=== PATIENT | male | born 1960 | race Caucasian/White ===

== ENCOUNTER 2016-11-02 13:23 | Observation (INO) ==
[2016-11-02 14:12] LABS: Basophils # 0.1 K/mcL (0.0-0.2); Eosinophils # 0.3 K/mcL (0.0-0.6); Eosinophils % 3.3 %; Hematocrit 47.9 % (37.5-50.1); Hemoglobin 15.9 g/dL (12.9-16.9); Immature Granulocytes % 0.3 % (0-4); Lymphocytes # 2.9 K/mcL (0.6-4.6); Lymphocytes % 31.9 %; Mean Corpuscular HGB Conc 33.2 g/dL (31.6-35.5); Mean Corpuscular Hemoglobin 28.4 pg (28.0-33.3); Mean Corpuscular Volume 85.7 fL (83.0-100.0); Mean Platelet Volume 9.9 fL (9.4-12.4); Monocytes # 0.7 K/mcL (0.0-1.3); Monocytes % 7.3 %; Neutrophils # 5.1 K/mcL (1.6-8.9); Platelet Count 218 K/mcL (140-400); Red Blood Count 5.59 M/mcL (4.19-5.50); Red Cell Distribution Width 12.9 % (11.5-14.5); Segmented Neutrophils % 56.2 %
[2016-11-02 14:17] LABS: INR 1.1; Prothrombin Time 12.2 Seconds (9.4-12.1)
[2016-11-02 14:20] LABS: Activated Partial Thrombo Time 32.7 Seconds (26.0-36.0)
[2016-11-02 14:27] LABS: BUN/Creatinine Ratio 13 (6-26); Blood Urea Nitrogen 14 mg/dL (8-26); Calcium 9.4 mg/dL (8.6-10.8); Carbon Dioxide 27 mEq/L (19-29); Chloride 107 mEq/L (98-109); Glucose 101 mg/dL (70-99); Osmolality,Calculated 293 (280-300); Potassium 4.3 mEq/L (3.5-4.5); Sodium 141 mEq/L (136-145); eGFR For African Americans > 60 (> 60); eGFR For Non-African Americans > 60 (> 60)
--- NOTE | 2016-11-02 15:03 | Emergency Department Note ---
Disposition Clinical Impression: Lower gastrointestinal hemorrhage, New onset a-fib Hemorrhoids Qualifiers: Hemorrhoid type: unspecified Qualified Code(s): K64.9 - Unspecified hemorrhoids Disposition: Admitted As Inpatient Condition: Good Referrals: NO,PCP [Primary Care Provider] - Forms: ED Satisfaction Letter Time of Disposition: 17:04 General Adult HPI - General Chief complaint: ED GI Bleed Stated complaint: GI Bleed Time Seen by Provider: 11/02/16 15:00 Source: patient Limitations: no limitations Nursing Notes Reviewed: Yes Vital Signs Reviewed: Yes - History of Present Illness HPI Narrative: Male patient reporting bright red blood per rectum this morning. Denies any hard stools. States it happens when he is going to the bathroom when he is not. States he does have a history of hemorrhoids. There are no provoking or alleviating factors. There is no pain associated with this. Does have associated nausea. Pain Scale: 4 - Related Data Previous Rx's Medication Instructions Recorded Hydrocodone/Acetaminophen [Sleepy Eye 1 tab PO Q6H PRN #12 tab 05/26/15 5-325 Tablet] Amoxicillin 875 mg PO BID #20 tablet 11/02/15 GuaiFENesin ER [Mucinex] 1,200 mg PO BID #20 tbbp.12hr 11/02/15 Loratadine [Claritin] 10 mg PO DAILY #30 tablet 11/02/15 hydroCHLOROthiazide 25 mg PO DAILY #30 tablet 11/12/15 [Hydrochlorothiazide] Ibuprofen [Motrin] 600 mg PO Q8HR PRN #20 tab 05/29/16 Tramadol HCl [Ultram] 1 - 2 tab PO TID PRN #20 tab 05/29/16 Allergies Allergy/AdvReac Type Severity Reaction Status Date / Time No Known Allergies Allergy Verified 05/29/16 17:00 Review of Systems: Patient denies any fevers or chills. He denies any shortness of breath or chest pain. He denies any vomiting or abdominal pain. He does report some nausea. He also reports some bright red blood per rectum that began this morning around 5:30. He states that it is there while he is pooping and when he is not. He states this is happened one other time he was told he had internal hemorrhoids. He states that the bleeding this time is more significant than it was last time. He denies lightheadedness or syncope. He denies any swelling or edema to any of his extremities. He denies any rectal trauma or abdominal trauma. All systems ED: reviewed and negative except as stated. Past Medical History - Past Medical History Attestation: Yes The following information was validated with the patient. Medical history: Reports: no medical history, other Surgical history: Reports: other Psychiatric history: Reports: no psych history - Social History Smoking Status: Never smoker Smokeless Tobacco Status: No Alcohol use: Reports: none Drug use: Reports: none Physical Exam - General Limitations: no limitations General appearance: alert, in no apparent distress - Head Head exam: atraumatic, normocephalic, normal inspection - Eye Eye exam: Present: normal appearance, PERRL, EOMI. Absent: scleral icterus - ENT ENT exam: normal exam, normal oropharynx, mucous membranes moist - Neck Neck exam: Present: normal inspection, full ROM, trachea midline. Absent: tenderness, meningismus, lymphadenopathy - Chest Chest inspection: Present: normal inspection, symmetric chest wall rise. Absent : tenderness - Respiratory Respiratory exam: Present: normal lung sounds bilaterally. Absent: respiratory distress, wheezes - Cardiovascular Cardiovascular exam: Present: tachycardia, irregular rhythm, normal heart sounds - Abdominal Exam Abdominal exam: Present: soft, Non-Tender, normal bowel sounds. Absent: tenderness, distention, guarding, rebound, rigidity, organomegaly - Rectal Exam Chemical Operations Specialist present during exam: Yes Rectal exam: Present: normal rectal tone, heme (+) stool, hemorrhoids. Absent: tenderness - Extremities Exam Extremities exam: Present: normal inspection, full ROM, normal capillary refill. Absent: tenderness, pedal edema - Back Exam Back exam: Present: normal inspection, full ROM. Absent: tenderness, CVA tenderness (R), CVA tenderness (L) - Neurological Exam Neurological exam: Present: alert, oriented X3, normal gait. Absent: CN II-XII intact, motor sensory deficit - Psychiatric Psychiatric exam: Present: normal affect, normal mood - Skin Skin exam: Present: warm, dry, intact, normal color. Absent: rash, cyanosis, diaphoresis, erythema Course Course Narrative: Male patient presenting to the emergency department complaining of bright red rectal bleeding. He states this began this morning. He states that it is bleeding whether he has a bowel movement or not. States that he has not had any hard stools recently to cause any bleeding. He denies any fevers or chills. He does report some nausea. He denies any abdominal pain. He states that he has had bright red blood per rectum one other time that resolved. He was told he had hemorrhoids at that time. Patient states it started around 5: 30 AM this morning. Of note the patient is in A. fib with RVR at a rate of 110. He denies any history of A. fib or other cardiac problems. He is also hypertensive all he is here. He states he does not have a history of hypertension either. He is not having any chest pain or shortness of breath. He states he does not feels heart fluttering. We will give patient Zofran for his nausea started an IV and start the patient on Lopressor. I will contact our cardiology for an A. fib consult. On rectal exam patient has some minor bleeding per rectum. It was a pink color. Of note he did have internal hemorrhoids. We are waiting for the Hemoccults come back by lab. His hemoglobin is normal and lab workup is grossly normal. We will also order a TSH. - Reevaluation(s) Reevaluation #1: Since TSH is normal. He is rate controlled with 5 mg of Lopressor. We will admit to the hospital for new onset A. fib with RVR as well as GI bleeding. Time: 16:56 - Consultations Consultation #1: Spoke with Dr Tai. he agrees that the Pt needs admitted to the hospital for rate control and possible scope for the gi bleeding. Time: 16:52 Consultation #2: Dr Cedeno accepeted Pt in stable condition. Time: 16:56 Vital Signs Temperature 98.4 F 11/02/16 13:24 Pulse Rate 101 11/02/16 13:24 Respiratory Rate 18 11/02/16 13:24 Blood Pressure 175/119 11/02/16 13:24 O2 Sat by Pulse Oximetry 96 11/02/16 13:24 Temperature 98.4 F 11/02/16 13:24 Pulse Rate 77 11/02/16 15:40 Respiratory Rate 18 11/02/16 15:40 Blood Pressure 148/125 11/02/16 15:40 O2 Sat by Pulse Oximetry 94 11/02/16 15:40 Oxygen Delivery Oxygen Delivery Room Air Medical Decision Making - Medical Records Medical records reviewed: Yes I reviewed the patient's medical records. - Lab Data Lab results reviewed: Yes I reviewed the patient's lab results. Result diagrams: 11/02/16 14:01 11/02/16 14:01 Lab Results 11/02/16 11/02/16 11/02/16 Range/Units 14:01 14:01 14:01 WBC 9.0 (4.3-11.1) K/mcL RBC 5.59 H (4.19-5.50) M/mcL Hgb 15.9 (12.9-16.9) g/dL Hct 47.9 (37.5-50.1) % MCV 85.7 (83.0-100.0) fL MCH 28.4 (28.0-33.3) pg MCHC 33.2 (31.6-35.5) g/dL RDW 12.9 (11.5-14.5) % Plt Count 218 (140-400) K/mcL MPV 9.9 (9.4-12.4) fL Immature Gran % 0.3 (0-4) % Seg Neutrophils % 56.2 % Lymphocytes % 31.9 % Monocytes % 7.3 % Eosinophils % 3.3 % Basophils % 1.0 % Neutrophils # 5.1 (1.6-8.9) K/mcL Lymphocytes # 2.9 (0.6-4.6) K/mcL Monocytes # 0.7 (0.0-1.3) K/mcL Eosinophils # 0.3 (0.0-0.6) K/mcL Basophils # 0.1 (0.0-0.2) K/mcL PT 12.2 H (9.4-12.1) Seconds INR 1.1 APTT 32.7 (26.0-36.0) Seconds Sodium 141 (136-145) mEq/L Potassium 4.3 (3.5-4.5) mEq/L Chloride 107 (98-109) mEq/L Carbon Dioxide 27 (19-29) mEq/L BUN 14 (8-26) mg/dL Creatinine 1.08 (0.72-1.25) mg/dL Est GFR ( Amer) > 60 (> 60) Est GFR (Non-Af Amer) > 60 (> 60) BUN/Creatinine Ratio 13 (6-26) Glucose 101 H (70-99) mg/dL Calculated Osmolality 293 (280-300) Calcium 9.4 (8.6-10.8) mg/dL TSH 3.073 (0.350-4.840) mcIU/mL Stool Occult Blood (Negative) 11/02/16 Range/Units 15:15 WBC (4.3-11.1) K/mcL RBC (4.19-5.50) M/mcL Hgb (12.9-16.9) g/dL Hct (37.5-50.1) % MCV (83.0-100.0) fL MCH (28.0-33.3) pg MCHC (31.6-35.5) g/dL RDW (11.5-14.5) % Plt Count (140-400) K/mcL MPV (9.4-12.4) fL Immature Gran % (0-4) % Seg Neutrophils % % Lymphocytes % % Monocytes % % Eosinophils % % Basophils % % Neutrophils # (1.6-8.9) K/mcL Lymphocytes # (0.6-4.6) K/mcL Monocytes # (0.0-1.3) K/mcL Eosinophils # (0.0-0.6) K/mcL Basophils # (0.0-0.2) K/mcL PT (9.4-12.1) Seconds INR APTT (26.0-36.0) Seconds Sodium (136-145) mEq/L Potassium (3.5-4.5) mEq/L Chloride (98-109) mEq/L Carbon Dioxide (19-29) mEq/L BUN (8-26) mg/dL Creatinine (0.72-1.25) mg/dL Est GFR ( Amer) (> 60) Est GFR (Non-Af Amer) (> 60) BUN/Creatinine Ratio (6-26) Glucose (70-99) mg/dL Calculated Osmolality (280-300) Calcium (8.6-10.8) mg/dL TSH (0.350-4.840) mcIU/mL Stool Occult Blood Positive A (Negative) - Radiology Data Radiology results reviewed: Yes I reviewed the patient's radiology results. Chest X-Ray 11/02/16 15:21 IMPRESSION: No acute abnormality. Mild cardiomegaly. D/ / Romario Tatum MD / Romario Tatum MD Interpreting Provider: Romario Tatum MD - EKG Data EKG #1 EKG attestation: Yes I reviewed and interpreted this EKG. EKG results narrative: A. fib with RVR at a rate of 105. [place] interval is not read. QRS duration is 106. QT is 335. QTC is 396. No signs of acute ischemia. Patient was in a sinus rhythm at last EKG dated 09/11/2014. EKG #2 EKG attestation: Yes I reviewed and interpreted this EKG. EKG results narrative: Repeat EKG timed 1631. A. fib at a rate of 75. QRS duration is 114. QT is 372. QTC is 402.
[2016-11-02] MEDS ORDERED: *HR* Metoprolol 5 MG/5 ML VIAL IVP ONE (15:19)
--- NOTE | 2016-11-02 15:28 | Emergency Department Note ---
Disposition Clinical Impression: Lower gastrointestinal hemorrhage, New onset a-fib Hemorrhoids Qualifiers: Hemorrhoid type: unspecified Qualified Code(s): K64.9 - Unspecified hemorrhoids Disposition: Admitted As Inpatient Condition: Good General Adult HPI - General Chief complaint: ED GI Bleed Stated complaint: GI Bleed Time Seen by Provider: 11/02/16 15:00 Source: patient Limitations: no limitations Nursing Notes Reviewed: Yes Vital Signs Reviewed: Yes - History of Present Illness Pain Scale: 4 - Related Data Home Medications Medication Instructions Recorded Confirmed No Known Home Drugs 11/02/16 11/02/16 Allergies Allergy/AdvReac Type Severity Reaction Status Date / Time No Known Allergies Allergy Verified 05/29/16 17:00 Past Medical History - Past Medical History Medical history: Reports: no medical history, other Surgical history: Reports: other Psychiatric history: Reports: no psych history - Social History Smoking Status: Never smoker Smokeless Tobacco Status: No Alcohol use: Reports: none Drug use: Reports: none Physical Exam - General Limitations: no limitations General appearance: alert, in no apparent distress Course Vital Signs Temperature 98.4 F 11/02/16 13:24 Pulse Rate 101 11/02/16 13:24 Respiratory Rate 18 11/02/16 13:24 Blood Pressure 175/119 11/02/16 13:24 O2 Sat by Pulse Oximetry 96 11/02/16 13:24 Temperature 98.4 F 11/02/16 13:24 Pulse Rate 77 11/02/16 15:40 Respiratory Rate 18 11/02/16 17:05 Blood Pressure 154/110 11/02/16 17:05 O2 Sat by Pulse Oximetry 94 11/02/16 15:40 Oxygen Delivery Oxygen Delivery Room Air Medical Decision Making - MDM Narrative Medical decision making narrative: I examined this patient and my medical decision-making was reviewed with the TOP KNITTER/PA/Advanced Practice Nurse/Resident Physician. I agree with the documented findings, disposition and treatment plan as described except to the extent set forth below. Patient presents today through triage and was seen by Dr. Downing and myself, I agree with her evaluation and management plan, supervise care the patient's stay. Patient came in today because he had some blood per rectum. History of internal hemorrhoid. States this happened once before but then it resolved. He denies abdominal pain however when he is here he is tachycardic with a regular heart rate is noted to have A. fib on his EKG. No history of this in the past. He had blood work drawn at triage and it looks good with an abnormal TSH. His heart rate was in the 1 teens, so we will start him on a beta shila here and will review his lab work; discuss with cardiology and then disposition. He had slight pink on his guaiac exam; no gross bleeding; no signs of external hemorrhoids or fissures. Chest X-Ray 11/02/16 15:21 IMPRESSION: No acute abnormality. Mild cardiomegaly. D/ / Romario Tatum MD / Romario Tatum MD Interpreting Provider: Romario Tatum MD 1630 hrs.: Patient is rate controlled with his atrial fibrillation after getting beta blockers here. His pressures in the 140s. We will bring him into the hospital, we spoke with cardiology, he will be admitted to hospitalist with cardiology consulting. Impression is GI bleed suspect internal hemorrhoid. And then new onset atrial fib needing rate control. - Lab Data Result diagrams: 11/02/16 14:01 11/02/16 14:01 Lab Results 11/02/16 11/02/16 11/02/16 Range/Units 14:01 14:01 14:01 WBC 9.0 (4.3-11.1) K/mcL RBC 5.59 H (4.19-5.50) M/mcL Hgb 15.9 (12.9-16.9) g/dL Hct 47.9 (37.5-50.1) % MCV 85.7 (83.0-100.0) fL MCH 28.4 (28.0-33.3) pg MCHC 33.2 (31.6-35.5) g/dL RDW 12.9 (11.5-14.5) % Plt Count 218 (140-400) K/mcL MPV 9.9 (9.4-12.4) fL Immature Gran % 0.3 (0-4) % Seg Neutrophils % 56.2 % Lymphocytes % 31.9 % Monocytes % 7.3 % Eosinophils % 3.3 % Basophils % 1.0 % Neutrophils # 5.1 (1.6-8.9) K/mcL Lymphocytes # 2.9 (0.6-4.6) K/mcL Monocytes # 0.7 (0.0-1.3) K/mcL Eosinophils # 0.3 (0.0-0.6) K/mcL Basophils # 0.1 (0.0-0.2) K/mcL PT 12.2 H (9.4-12.1) Seconds INR 1.1 APTT 32.7 (26.0-36.0) Seconds Sodium 141 (136-145) mEq/L Potassium 4.3 (3.5-4.5) mEq/L Chloride 107 (98-109) mEq/L Carbon Dioxide 27 (19-29) mEq/L BUN 14 (8-26) mg/dL Creatinine 1.08 (0.72-1.25) mg/dL Est GFR ( Amer) > 60 (> 60) Est GFR (Non-Af Amer) > 60 (> 60) BUN/Creatinine Ratio 13 (6-26) Glucose 101 H (70-99) mg/dL Calculated Osmolality 293 (280-300) Calcium 9.4 (8.6-10.8) mg/dL TSH 3.073 (0.350-4.840) mcIU/mL Stool Occult Blood (Negative) 11/02/16 Range/Units 15:15 WBC (4.3-11.1) K/mcL RBC (4.19-5.50) M/mcL Hgb (12.9-16.9) g/dL Hct (37.5-50.1) % MCV (83.0-100.0) fL MCH (28.0-33.3) pg MCHC (31.6-35.5) g/dL RDW (11.5-14.5) % Plt Count (140-400) K/mcL MPV (9.4-12.4) fL Immature Gran % (0-4) % Seg Neutrophils % % Lymphocytes % % Monocytes % % Eosinophils % % Basophils % % Neutrophils # (1.6-8.9) K/mcL Lymphocytes # (0.6-4.6) K/mcL Monocytes # (0.0-1.3) K/mcL Eosinophils # (0.0-0.6) K/mcL Basophils # (0.0-0.2) K/mcL PT (9.4-12.1) Seconds INR APTT (26.0-36.0) Seconds Sodium (136-145) mEq/L Potassium (3.5-4.5) mEq/L Chloride (98-109) mEq/L Carbon Dioxide (19-29) mEq/L BUN (8-26) mg/dL Creatinine (0.72-1.25) mg/dL Est GFR ( Amer) (> 60) Est GFR (Non-Af Amer) (> 60) BUN/Creatinine Ratio (6-26) Glucose (70-99) mg/dL Calculated Osmolality (280-300) Calcium (8.6-10.8) mg/dL TSH (0.350-4.840) mcIU/mL Stool Occult Blood Positive A (Negative)
[2016-11-02 16:02] LABS: Thyroid Stimulating Hormone 3.073 mcIU/mL (0.350-4.840)
[2016-11-02] MEDS ORDERED: Ondansetron ODT 4 MG TAB.RAPDIS SL ONE (16:57)
[2016-11-02] MEDS ORDERED: Acetaminophen 325 MG TABLET PO PRN (17:43)
[2016-11-02] MEDS ORDERED: Naloxone 0.4 MG/ML INJ IVP PRN (17:43)
[2016-11-02] MEDS ORDERED: Ondansetron 4 MG/2 ML VIAL IVP PRN (17:43)
--- NOTE | 2016-11-02 17:48 | Internal Med History&Physical ---
Date of Encounter: 11/02/16 Time of Encounter: 17:48 Assessment and Plan (1) New onset a-fib Current visit: Yes Status: Acute Incidental finding of A.fib on routine EKG and Telemetry monitoring. HR was slightly higher than 110 initially, which responded well to 5mg IV Metoprolol in the ER; continue Telemetry monitoring and cycle Troponins; start oral beta shila and monitor BP and HR closely. Check Echocardiogram for EF. Check TSH; Cardiology consult, low risk on CHADS-VASC score; anticoagulation deferred due to lower GI bleed at this time. decision regarding DCCV -will defer to Cardiology; (2) Lower gastrointestinal hemorrhage Current visit: Yes Status: Acute One episode of bright red bleeding per rectum, likely hemorrhoidal; continue to monitor Hb and for further bleeding episodes; had one other episode of bleeding in the pats, no prior colonoscopy; outpatient workup if Hb remains stable and no further bleeding episodes; (3) Essential hypertension Current visit: Yes Status: Chronic Likely undiagnosed HTN; start Metoprolol and monitor BP closely; low Na diet; Internal Medicine - H&P: HPI Chief complaint: Rectal bleeding Admitted From: Emergency Dept Plans for Post Hospital Care: Home History of present illness: Mr. Bowden is a 56 year old male with no significant past medical history presents with c/o- bright red rectal bleeding. His symptoms started about 6.30 am this morning and continued for a few hours, with intermittent painless bright red bleeding mixed with stool, and trickling down by itself, no clots. No melena, nausea, vomiting, and reports mild lower abdominal cramps/ discomfort. Had prior h/o- bleeding once in the past, which was self-limited and never had EGD/Colonoscopy in the past. Reports no chest pain, dyspnea, palpitations, dizziness or syncope today. Past Med Surg Social Fam HX - Past Medical History Medical history: no medical history, other Psychiatric history: no psych history - Past Surgical History Surgical History: orthopedic, other (right femur ORIF), other - Social History Smoking Status: Former smoker Smokeless Tobacco Status: No Alcohol use: none Drug use: none Occupational status: employed Current living situation: Home, With Family Activity Level: Independent ambulation Recent Out of Country Travel Within the Last 8 Weeks: No - Family History Brother Living Status: Still Living Hx Family Cardiac Disorders: Yes Hx Family Cancer: Yes Father Hx Family Cancer: Yes Internal Medicine - H&P: Meds No Known Home Drugs 11/02/16 [History] Allergies No Known Allergies Allergy (Verified 05/29/16 17:00) All Systems PM: A 10-system review of systems was performed and is negative for pertinent findings except as documented above in the HPI. - Constitutional Constitutional: no chills, no fever(s), no night sweats - EENT Eyes: no change in vision, no discharge, no pain, no photophobia Ears: no ear discharge, no ear pain, no tinnitus Nose, mouth and throat: no dysphagia, no nasal discharge, no neck pain, no sore throat - Cardiovascular Cardiovascular ROS IM: no chest pain, no diaphoresis, no dyspnea, no lightheadedness, no palpitations, no syncope - Respiratory Respiratory: no cough, no dyspnea, no wheezing, no excessive phlegm production - Gastrointestinal Gastrointestinal: abdominal pain, hematochezia - Musculoskeletal Musculoskeletal ROS IM: no numbness, no tingling - Integumentary Integumentary IM: no rash, no unusual bruising - Neurological Neurological ROS: no confusion, no convulsions, no focal weakness, no numbness, no tingling, no tremor(s) - Hematologic/Lymphatic Hematologic/Lymphatic: no easy bruising - Constitutional Vitals: Temp Pulse Resp BP Pulse Ox 98.4 F 77 18 154/110 94 11/02/16 13:24 11/02/16 15:40 11/02/16 17:05 11/02/16 17:05 11/02/16 15:40 General appearance: Present: A&O X 3, answers questions appropriately - Respiratory Respiratory exam: Present: CTAB. Absent: accessory muscle use, rales, rhonchi, wheezes - Cardiovascular Cardiovascular exam: Present: irregular rhythm, +S1, +S2. Absent: diastolic murmur, gallop, rubs, systolic murmur - GI/Abdominal GI/Abdominal exam: Present: normal bowel sounds, soft, no peritoneal signs. Absent: distended, tenderness - Extremities Exam Extremities exam: Present: full ROM, warm, radial pulses palpable and symetrical. Absent: calf tenderness, cyanotic, pedal edema - Neurological Exam Neurological exam: Present: CN II-XII intact, oriented X3. Absent: pronater drift, facial droop, speech deficit - Skin Skin exam: Present: dry, intact Internal Med - H&P Results - Labs CBC & Chem 7: 11/02/16 14:01 11/02/16 14:01 - EKG Data -: EKG Interpreted by Myself (irregular narrow complex tachycardia- atrila fibrillation)
[2016-11-03 07:00] LABS: Basophils # 0.1 K/mcL (0.0-0.2); Basophils % 1.1 %; Eosinophils # 0.4 K/mcL (0.0-0.6); Eosinophils % 4.7 %; Hematocrit 47.6 % (37.5-50.1); Hemoglobin 15.7 g/dL (12.9-16.9); Immature Granulocytes % 0.5 % (0-4); Lymphocytes # 2.8 K/mcL (0.6-4.6); Lymphocytes % 35.7 %; Mean Corpuscular Hemoglobin 28.6 pg (28.0-33.3); Mean Corpuscular Volume 86.7 fL (83.0-100.0); Mean Platelet Volume 9.8 fL (9.4-12.4); Monocytes # 0.6 K/mcL (0.0-1.3); Monocytes % 7.4 %; Platelet Count 208 K/mcL (140-400); Red Blood Count 5.49 M/mcL (4.19-5.50); Red Cell Distribution Width 13.2 % (11.5-14.5); Segmented Neutrophils % 50.6 %
[2016-11-03 07:30] LABS: BUN/Creatinine Ratio 14 (6-26); Blood Urea Nitrogen 14 mg/dL (8-26); Calcium 8.6 mg/dL (8.6-10.8); Carbon Dioxide 25 mEq/L (19-29); Chloride 107 mEq/L (98-109); Chol/HDL Ratio 6.7 (0-4.9); Cholesterol 188 mg/dL (< 200); Glucose 92 mg/dL (70-99); HDL Cholesterol 28 mg/dL (40-59); LDL Cholesterol,Calculated 113 mg/dL (0-99); Magnesium 2.2 mg/dL (1.6-2.6); Osmolality,Calculated 290 (280-300); Potassium 3.8 mEq/L (3.5-4.5); Sodium 140 mEq/L (136-145); Triglycerides 237 mg/dL (< 150); eGFR For African Americans > 60 (> 60); eGFR For Non-African Americans > 60 (> 60)
[2016-11-03 08:01] LABS: Hemoglobin A1C 5.4 %
--- NOTE | 2016-11-03 08:59 | Cardiology Consult Note ---
Date of Encounter: 11/03/16 Time of Encounter: 08:54 Assessment and Plan (1) New onset a-fib Current Visit: Yes Status: Acute New onset A. fib found incidentally Patient is asymptomatic Rate currently controlled on PO metoprolol 25 mg BID No acute abnormalities on echo Potassium and magnesium WNL Continue metoprolol and follow up with cardiology as outpatient (2) Essential hypertension Current Visit: Yes Status: Chronic Echocardiogram with left ventricular hypertrophy, patient likely has chronic hypertension Start lisinopril 10 mg daily and titrate as outpatient DASH diet Discussion w patient/family: The assessment and plan as outlined above was discussed with the patient and/or family members who expressed understanding and agreement. All questions were answered. Thank you for involving us in the care of your patient. Please call with any questions. History of Present Illness Consult date: 11/03/16 Consult reason: New onset A. fib Chief complaint: New onset A. fib History of present illness: Mr. Bowden is a 56 year old male who presented to the ER yesterday (see 11/02/16) C4 bright red blood per rectum that had started early that morning. He does have a history of internal hemorrhoids with rectal bleeding however his bleeding was more significant this time. He did have internal hemorrhoids on exam according to ER documentation as well as a positive stool Hemoccult. H&H = 15.9/47.9. Blood pressure in ER was 175/119. On interview patient states he was diagnosed with hypertension 5-6 years ago and was started on antihypertensive medication, unsure of name, but states he was taken off this a few months later because his blood pressure was too low. He has not been on blood pressure medication for about the past 5 years and checks his blood pressure periodically at the drugstore stating it is usually in the 120s-130s systolic. In the ED he was incidentally found to have A. fib with RVR, pulse rate up to 110. He did not have any chest pain, shortness of breath, palpitations and was started on rate control with IV Lopressor 5 mg and subsequently switched to metoprolol 25 mg by mouth twice a day without recurrence of A. fib. CHADSVASC = 0 (see possibly 1 with remote history of hypertension). Echo pending. Potassium, magnesium both WNL. Past Med Surg Social Fam HX - Past Medical History Medical history: no medical history, other Psychiatric history: no psych history - Past Surgical History Surgical History: orthopedic, other (right femur ORIF), other - Social History Smoking Status: Former smoker Smokeless Tobacco Status: No Alcohol use: none Drug use: none - Family History Brother Living Status: Still Living Hx Family Cardiac Disorders: Yes Hx Family Cancer: Yes Father Hx Family Cancer: Yes Medications and Allergies No Known Home Drugs 11/02/16 [History] Allergies No Known Allergies Allergy (Verified 05/29/16 17:00) All Systems Review: A 10-system review of systems was performed and is negative for pertinent findings except as documented above in the HPI. - Constitutional Constitutional: no fever(s), no weight loss - Cardiovascular Cardiovascular: as per HPI, no chest pain at rest, no chest pain with exertion, no claudication, no diaphoresis, no dyspnea on exertion, no lightheadedness, no palpitations, no syncope - Respiratory Respiratory: no cough, no dyspnea, no wheezing - Gastrointestinal Gastrointestinal: no abdominal pain Physical Examination Vital Signs, Last 4 Hours Temp Pulse Resp BP Pulse Ox 11/03/16 07:52 97.8 F 67 16 130/88 91 General: Conversant, No Apparent Distress HEENT: Atraumatic, Normocephaly Cardiac: Reg Rate and Rhythm, Normal S1 and S2, No Murmur Lungs: Normal Breath Sounds, No Wheeze, Rales, Rhonchi Neuro: Alert and responsive, No focal deficits noted Extremities: No Clubbing, No Cyanosis, No Edema, Normal Pulses Results 11/03/16 06:28 11/03/16 06:28 Lab Results 11/02/16 11/02/16 11/03/16 18:27 23:49 06:28 WBC 7.9 Hgb 15.7 Hct 47.6 Plt Count 208 Sodium Potassium Chloride Carbon Dioxide BUN Creatinine Glucose Calcium Magnesium Troponin I 0.00 0.00 11/03/16 11/03/16 06:28 06:28 WBC Hgb Hct Plt Count Sodium 140 Potassium 3.8 Chloride 107 Carbon Dioxide 25 BUN 14 Creatinine 0.99 Glucose 92 Calcium 8.6 Magnesium 2.2 Troponin I 0.00 - Imaging and Cardiology Chest Xray: report reviewed, image reviewed Echo: report reviewed Consult Discharge Plan - Plan Referrals: NO,PCP [Primary Care Provider] -
[2016-11-03 11:02] VITALS: BP 128/83
--- NOTE | 2016-11-03 13:46 | Discharge Summary ---
Date of Encounter: 11/03/16 Time of Encounter: 10:10 - Discharge Diagnosis (1) New onset a-fib Priority: Primary Status: Acute Comments: Patient had an incidental finding of A. fib on EKG and on telemetry while on the unit. Heart rate was slightly higher than 110 initially, responded well to 5 mg of IV metoprolol in the emergency department. Patient will be sent home with 25 milligrams of metoprolol by mouth twice a day during assessment today I feel like he was in and out of A. fib. Initially when I auscultated his apical pulse he was normal sinus rhythm with a rate in the 60s, however when I listened a second time, the rhythm appeared to be irregular, however, still rate controlled. Patient denies any chest pain or any symptoms whatsoever since the onset of all of this. Echocardiogram was done last night. Showed LVEF of 50-55%, indeterminate diastolic function, mild concentric left ventricular hypertrophy, normal LV chamber size and low normal function, mildly dilated left atrium, normal RV structure and function, and no evidenc of pulmonary hypertension. Patient denies chest pain or any other complaints. No shortness of breath, no palpitations no dizziness, no nausea or vomiting, no syncope. Patient was seen by cardiology this morning. He does not require anticoagulation at this time, especially given history of GI bleeding. He will follow-up with cardiology clinic in 2-3 weeks. He will be sent home with metoprolol as mentioned above as well as lisinopril 5 mg by mouth daily for enhanced blood pressure control. (2) Lower gastrointestinal hemorrhage Priority: Secondary Status: Acute Comments: Patient reports bright red bleeding per rectum after bowel movement at 7 AM yesterday. He said it was still bleeding when he went to lunch at about noon. He said he has had none since then. He denies any abdominal pain or cramping. No diarrhea. Pt will follow up with GI outpatient. Hgb is steady and has not changed since admission. Pt denies bleeding after bowel movement today. (3) Hemorrhoids Priority: Secondary Status: Acute Comments: Bright red bleeding per rectum yesterday 1 episode after bowel movement. Most likely from hemorrhoids. Patient denies pain, abdominal pain, cramping. Patient will follow up outpatient with GI for colonoscopy. He has not had a colonoscopy in the past. Abdomen is soft and nontender with bowel sounds present. He is eating without difficulty. No nausea or vomiting or hematochezia. Qualifiers: Hemorrhoid type: unspecified Qualified Code(s): K64.9 - Unspecified hemorrhoids (4) Essential hypertension Priority: Secondary Status: Chronic Comments: Chronic. Patient will be sent home with metoprolol 25 mg by mouth twice a day, as well as lisinopril 5 mg by mouth daily for better control of hypertension. - Discharge Medications Prescriptions: Lisinopril [Zestril] 5 mg PO DAILY #30 tablet Metoprolol [Lopressor] 25 mg PO BID #60 tablet Home Medications: Lisinopril [Zestril] 5 mg PO DAILY #30 tablet 11/03/16 [Rx] Metoprolol [Lopressor] 25 mg PO BID #60 tablet 11/03/16 [Rx] Allergies/Adverse Reactions: Allergies No Known Allergies Allergy (Verified 05/29/16 17:00) Procedures/tests Complete & Pending: Procedures Performed prior 72 hours Category Date Time Status EV echocardiogram Routine Y 11/02/16 17:45 Completed Date of admission: 11/02/16 17:03 Primary care physician: PEÑA PRATHER Consults: [place] Discharging clinician: Mila Castellon Anticipated date of discharge: 11/03/16 - Patient Status Disposition: Home, Self-Care Functional capacity at discharge: independent ambulation Overall status at discharge: patient is back to baseline - Discharge Instructions Follow Up With: YAMILKA,PCP [Primary Care Provider] - Additional Instructions: Please follow up with your primary care physician in the next week to 10 days for a follow up. Please start your medications tomorrow. You will need to take a Metoprolol tonight before bed. Follow up with cardiology in the office in 2-3 weeks. REturn to the ER as needed for any new problems or if you begin having chest pain or more bleeding. You will need to follow up with GI for a colonoscopy. - Diet and Activity Activity: increase activity as tolerated Diet: advance to your usual diet Interval History: Mr. Maynard is a 56-year-old male with no significant past medical history, other than possibly hypertension, who presented to the emergency room yesterday with a five-hour history of bright red bleeding per rectum. He says that he had a bowel movement at 7 AM and he continued until lunchtime. He presented to the emergency department has had no bleeding since that time. His stool occult was positive for blood. He denies any cramping, diarrhea, hematochezia, abdominal pain, bloating or distention. His abdomen is soft and nontender to palpation with bowel sounds present. He denies history of this in the past. He has not had any chronic colonoscopy or any GI workup. He will be sent for colonoscopy outpatient. This is most likely due to internal hemorrhoids. Patient was found to be in A. fib incidentally in the emergency department. He denies any palpitations, chest pain, shortness of breath, dizziness, nausea, vomiting, diaphoresis. He says he was unaware of any cardiac problems. He will be sent home on metoprolol 25 mg by mouth twice daily, as well as lisinopril 5 mg by mouth daily. Patient had echocardiogram with LVEF 50-55%, normal LV chamber size and low normal function, mild concentric LV hypertrophy, most likely due to chronic hypertension. There is indeterminate diastolic function, normal RV structure and function, moderately dilated left atrium. And no evidence of pulmonary hypertension. He denies any chest pain, shortness of breath, diaphoresis, nausea, vomiting, lightheadedness, dizziness, palpitations. Hypertension has been well controlled in the setting. His hemoglobin has remained stable and unchanged since admission, as stated above, stool occult was positive for blood. TSH is within normal limits. All other labs are within normal limits vital signs are stable patient will be sent home with his medications and suggesting a low sodium diet as well as follow-up for colonoscopy. Patient is stable and appropriate for discharge. Hospital course: Mr. Bowden is a 56 year old male - Time Spent with Patient Total time spent providing and/or coordinating discharge services: Less than 30 minutes - Constitutional Vitals: Temp Pulse Resp BP Pulse Ox 98.0 F 66 16 128/83 94 11/03/16 11:00 11/03/16 11:00 11/03/16 11:00 11/03/16 11:11/03/16 11:00 General appearance: Present: cooperative, A&O X 3, pleasant, no acute distress, answers questions appropriately - Head Head exam: Present: normal inspection - Eye Eye exam: Present: normal appearance, nystagmus, conjuntiva pink - ENT ENT exam: Present: mucous membranes moist, normal exam - Neck Neck exam general surgery: Present: normal inspection. Absent: lymphadenopathy , tenderness - Respiratory Respiratory exam: Present: CTAB. Absent: chest wall tenderness, rales, rhonchi , stridor, wheezes - Cardiovascular Cardiovascular exam: Present: irregular rhythm, RRR, +S1, +S2. Absent: bradycardia, clicks, diastolic murmur, gallop, systolic murmur, tachycardia - GI/Abdominal GI/Abdominal exam: Present: normal bowel sounds, soft. Absent: distended, firm , hepatomegaly, tenderness - Extremities Exam Extremities exam: Present: normal inspection, warm. Absent: pedal edema, tenderness - Neurological Exam Neurological exam: Present: alert, oriented X3, no focal deficits, strengths equal and symetr throughout. Absent: facial droop, speech deficit
--- NOTE | 2016-11-03 23:45 | Electrocardiograph Report ---
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
--- NOTE | 2016-11-03 23:50 | Electrocardiograph Report ---
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
== END 2016-11-03 14:33 | disposition home or self-care (01) ==
LOC: 3BNU 13:23 → EMEROO 13:23 → 3BNU 17:34
PROVIDERS: ADMIT Hospitalist; ATTEND Nurse Practitioner Family

== ENCOUNTER 2016-12-17 11:12 | Observation (INO) ==
[2016-12-17] MEDS ORDERED: 0.9 % Sodium Chloride 1,000 ML IVC ONE (11:32)
--- NOTE | 2016-12-17 11:32 | Emergency Department Note ---
Disposition Clinical Impression: Unstable angina pectoris Chest pain Qualifiers: Chest pain type: unspecified Qualified Code(s): R07.9 - Chest pain, unspecified Disposition: Admitted As Inpatient Condition: Undetermined Time of Disposition: 14:04 Chest Pain HPI - General Chief Complaint: ED Chest Pain Stated Complaint: Chest Pain Time Seen by Provider: 12/17/16 11:16 Source: patient Mode of arrival: ambulatory Limitations: no limitations Vital Signs Reviewed: Yes Nursing Notes Reviewed: Yes - History of Present Illness HPI Narrative: 56-year-old male with history of recent diagnosis of atrial fibrillation, hyperlipidemia, hypertension arrives to [facility] emergency department complaining of left-sided chest pain that started just prior to arrival by roughly 30 minutes. The patient denies any previous NH and states that his last stress test as "been a while". The patient states that the pain radiates a little into his left shoulder. He does have associated dyspnea. Patient denies any other complaints at this time. He does appear slightly distressed due to the amount of pain. The patient was recently admitted to the hospital at the beginning of October of this year with complaint of GI bleed. The patient's last hemoglobin was 7.9 prior to discharge. No other complaints at that time. Patient had the incidental finding of atrial fibrillation and was followed up with in the cardiology clinic outpatient. No current complaint of GI bleeding, no melena, no hematochezia at this time. Pt complaint: chest pain Onset (ago): Just CARE DIRECTOR Duration: constant Onset: during exertion Pain Location: left chest Severity: moderate, severe Severity scale (1-10): 7 Quality: tightness, heaviness Pain Radiation: LUE Improves with: nothing Worsens with: nothing Associated symptoms: Reports: dyspnea Treatments prior to arrival chest pain: none - Related Data On Oral Contraceptives: No Home Medications Medication Instructions Recorded Confirmed Atorvastatin [Lipitor] 40 mg PO HS 12/17/16 12/17/16 Previous Rx's Medication Instructions Recorded Lisinopril [Zestril] 5 mg PO DAILY #30 tablet 11/03/16 Metoprolol [Lopressor] 25 mg PO BID #60 tablet 11/03/16 Allergies Allergy/AdvReac Type Severity Reaction Status Date / Time No Known Allergies Allergy Verified 05/29/16 17:00 All systems ED: reviewed and negative except as stated. Constitutional: Denies: fever, chills, weakness, weight change Cardiovascular: Reports: chest pain. Denies: palpitations, dyspnea on exertion , edema Respiratory: Reports: dyspnea. Denies: cough, wheezes, hemoptysis, stridor Gastrointestinal: Denies: abdominal pain, nausea, vomiting, diarrhea, constipation, hematemesis, melena, hematochezia Genitourinary: Denies: urgency, dysuria, frequency, hematuria Musculoskeletal: Denies: back pain, neck pain, arthralgia, myalgia Integumentary: Denies: rash, abrasion, lesions Neurological: Denies: headache, weakness, numbness, paresthesias, confusion, abnormal gait, vertigo Chest Pain PMH - Past Medical History Medical history: Reports: no medical history, atrial fibrillation, other Surgical history: Reports: orthopedic, other (right femur ORIF), other Psychiatric history: Reports: no psych history - Social History Smoking Status: Former smoker Alcohol use: Reports: none Drug use: Reports: none Physical Exam - General Limitations: no limitations General appearance: alert, in distress - Head Head exam: atraumatic, normocephalic, normal inspection - Neck Neck exam: Present: normal inspection, full ROM, trachea midline - Chest Chest inspection: Present: normal inspection, symmetric chest wall rise - Respiratory Respiratory exam: Present: normal lung sounds bilaterally - Cardiovascular Cardiovascular exam: Present: regular rate, normal rhythm, normal heart sounds - Abdominal Exam Abdominal exam: Present: soft, Non-Tender. Absent: tenderness, distention, guarding, rebound, rigidity - Extremities Exam Extremities exam: Present: normal inspection, full ROM. Absent: tenderness, pedal edema - Back Exam Back exam: Present: normal inspection, full ROM. Absent: tenderness - Neurological Exam Neurological exam: Present: alert, oriented X3 Course - Consultations Consultation #1: Spoke with Dr. Tai cardiology who agreed that with dynamic changes on his EKG without any definitive ST elevation or ST depression to place the patient on heparin drip as well as admit the patient for unstable angina. Cardiology will see him on the floor. Time: 13:58 Vital Signs Temperature 98.1 F 12/17/16 11:22 Pulse Rate 75 12/17/16 11:22 Respiratory Rate 16 12/17/16 11:22 Blood Pressure 128/95 12/17/16 11:22 O2 Sat by Pulse Oximetry 97 12/17/16 11:22 Temperature 98.1 F 12/17/16 11:22 Pulse Rate 65 12/17/16 14:00 Respiratory Rate 16 12/17/16 15:04 Blood Pressure 169/120 12/17/16 15:29 O2 Sat by Pulse Oximetry 98 12/17/16 14:00 Oxygen Delivery Oxygen Delivery Nasal Cannula Chest Pain - MDM Narrative Medical decision making narrative: Patient EKG demonstrates dynamic changes over the course of the ED visit. There is been no definitive ST depression or ST elevation noted. There have been some noted nonspecific T wave changes particularly in inferior leads. The patient has a negative troponin but we will admit the patient to the hospital for trending this troponin. The patient was placed on nitroglycerin drip at 5 mcg/m. At this rate the patient is currently chest pain-free. He denies any other symptoms and is resting comfortably at bedside. The patient was administered aspirin. The patient aware that he will be admitted to the hospital. Patient's Hemoccult is negative. We will place the patient on heparin drip at this time. Accepted by Dr. Wallace. - Medical Records Medical records reviewed: Yes I reviewed the patient's medical records. - Lab Data Lab results reviewed: Yes I reviewed the patient's lab results. Result diagrams: 12/17/16 11:40 12/17/16 11:40 Lab Results 12/17/16 12/17/16 12/17/16 Range/Units 11:40 11:40 11:40 WBC 7.6 (4.3-11.1) K/mcL RBC 5.15 (4.19-5.50) M/mcL Hgb 15.1 (12.9-16.9) g/dL Hct 45.0 (37.5-50.1) % MCV 87.4 (83.0-100.0) fL MCH 29.3 (28.0-33.3) pg MCHC 33.6 (31.6-35.5) g/dL RDW 13.2 (11.5-14.5) % Plt Count 211 (140-400) K/mcL MPV 9.9 (9.4-12.4) fL Immature Gran % 0.4 (0-4) % Seg Neutrophils % 51.1 % Lymphocytes % 34.6 % Monocytes % 8.0 % Eosinophils % 5.1 % Basophils % 0.8 % Neutrophils # 3.9 (1.6-8.9) K/mcL Lymphocytes # 2.6 (0.6-4.6) K/mcL Monocytes # 0.6 (0.0-1.3) K/mcL Eosinophils # 0.4 (0.0-0.6) K/mcL Basophils # 0.1 (0.0-0.2) K/mcL PT (9.4-12.1) Seconds INR APTT (26.0-36.0) Seconds Sodium 140 (136-145) mEq/L Potassium 3.9 (3.5-4.5) mEq/L Chloride 106 (98-109) mEq/L Carbon Dioxide 29 (19-29) mEq/L BUN 15 (8-26) mg/dL Creatinine 1.06 (0.72-1.25) mg/dL Est GFR ( Amer) > 60 (> 60) Est GFR (Non-Af Amer) > 60 (> 60) BUN/Creatinine Ratio 14 (6-26) Glucose 115 H (70-99) mg/dL Calculated Osmolality 292 (280-300) Calcium 9.5 (8.6-10.8) mg/dL Troponin I 0.00 (0-0.03) ng/mL Stool Occult Blood (Negative) 12/17/16 12/17/16 Range/Units 11:40 13:19 WBC (4.3-11.1) K/mcL RBC (4.19-5.50) M/mcL Hgb (12.9-16.9) g/dL Hct (37.5-50.1) % MCV (83.0-100.0) fL MCH (28.0-33.3) pg MCHC (31.6-35.5) g/dL RDW (11.5-14.5) % Plt Count (140-400) K/mcL MPV (9.4-12.4) fL Immature Gran % (0-4) % Seg Neutrophils % % Lymphocytes % % Monocytes % % Eosinophils % % Basophils % % Neutrophils # (1.6-8.9) K/mcL Lymphocytes # (0.6-4.6) K/mcL Monocytes # (0.0-1.3) K/mcL Eosinophils # (0.0-0.6) K/mcL Basophils # (0.0-0.2) K/mcL PT 12.1 (9.4-12.1) Seconds INR 1.1 APTT 30.5 (26.0-36.0) Seconds Sodium (136-145) mEq/L Potassium (3.5-4.5) mEq/L Chloride (98-109) mEq/L Carbon Dioxide (19-29) mEq/L BUN (8-26) mg/dL Creatinine (0.72-1.25) mg/dL Est GFR ( Amer) (> 60) Est GFR (Non-Af Amer) (> 60) BUN/Creatinine Ratio (6-26) Glucose (70-99) mg/dL Calculated Osmolality (280-300) Calcium (8.6-10.8) mg/dL Troponin I (0-0.03) ng/mL Stool Occult Blood Negative (Negative) - Radiology Data Radiology results reviewed: Yes I reviewed the patient's radiology results. - EKG Data EKG attestation: Yes I reviewed and interpreted this EKG. EKG results narrative: Heart rate 78 bpm. QTc 42 ms. Normal axis. Normal sinus rhythm as there are P waves noted in some beets on EKG. No ST elevation or ST depression noted. There are inverted T waves in leads 1, 2, AVR from baseline EKG from 2016. Nonspecific changes overall. EKG #2 at 1243: Heart rate 51 bpm. QTC 376 ms. Normal axis. Sinus bradycardia given P waves present. No ST elevation or ST depression noted. Nonspecific changes noted in aVL and 1 leads. EKG #3: Heart rate 60 bpm. QTC 394 ms. Possible atrial fibrillation noted on this EKG but difficult to assess due to mild artifact noted. No ST elevation or ST depression noted. EKG similar to EKG #2 performed at 1243. EKG #3 was performed at 1340. No acute changes noted. Attestation Statement - Attestation Attestation: I examined this patient and my medical decision-making was reviewed with the Resident Physician. I agree with the documented findings, disposition and treatment plan as described except to the extent set forth below. 56-year-old male presents to the ED due to chest pain. He said intermittent chest pain that worsened today. Pain radiates to his left arm associated with diaphoresis and dyspnea. Pain persisted prompting him to come to the ED. No fevers or chills. No significant exertional provocation of symptoms. He has had increasing fatigue recently. History of atrial fibrillation over the past month. Well-appearing male in no apparent distress. Oropharynx is clear. Neck is supple trachea midline. Chest clear to auscultation bilaterally. Current exam irregular, no murmurs pursued. Chest wall is nontender. Abdomen soft nontender. Initial EKG with T-wave inversions in the leads 1 and aVL which are new compared to last EKG from 1 month ago. He was given aftercare instructed on exertion with resolution of his chest pain and normalization of the EKG. He was started on heparin and will be admitted for further evaluation. The high probability of a clinically significant, sudden or life threatening deterioration of the [cardiovascular] system(s) required my full and direct attention, intervention and personal management. The aggregate critical care time was [32] minutes. This time is in addition to time spent performing reported procedures but includes the following: [x] Data Review and interpretation [x] Patient assessment and monitoring of vital signs [x] Documentation [x] Medication orders and management
[2016-12-17] MEDS ORDERED: Nitroglycerin 25 MG/250 ML INFUS..BTL IVC SCH (12:00)
[2016-12-17 12:14] LABS: Basophils # 0.1 K/mcL (0.0-0.2); Basophils % 0.8 %; Eosinophils # 0.4 K/mcL (0.0-0.6); Eosinophils % 5.1 %; Hemoglobin 15.1 g/dL (12.9-16.9); Immature Granulocytes % 0.4 % (0-4); Lymphocytes # 2.6 K/mcL (0.6-4.6); Lymphocytes % 34.6 %; Mean Corpuscular HGB Conc 33.6 g/dL (31.6-35.5); Mean Corpuscular Hemoglobin 29.3 pg (28.0-33.3); Mean Corpuscular Volume 87.4 fL (83.0-100.0); Mean Platelet Volume 9.9 fL (9.4-12.4); Monocytes # 0.6 K/mcL (0.0-1.3); Neutrophils # 3.9 K/mcL (1.6-8.9); Platelet Count 211 K/mcL (140-400); Red Blood Count 5.15 M/mcL (4.19-5.50); Red Cell Distribution Width 13.2 % (11.5-14.5); Segmented Neutrophils % 51.1 %
[2016-12-17 12:25] LABS: BUN/Creatinine Ratio 14 (6-26); Blood Urea Nitrogen 15 mg/dL (8-26); Calcium 9.5 mg/dL (8.6-10.8); Carbon Dioxide 29 mEq/L (19-29); Chloride 106 mEq/L (98-109); Glucose 115 mg/dL (70-99); Osmolality,Calculated 292 (280-300); Potassium 3.9 mEq/L (3.5-4.5); Sodium 140 mEq/L (136-145); eGFR For African Americans > 60 (> 60); eGFR For Non-African Americans > 60 (> 60)
[2016-12-17] MEDS ORDERED: Aspirin 325 MG TABLET PO ONE (12:41)
[2016-12-17] MEDS ORDERED: *HR* Heparin 5,000 UNIT/ML VIAL IVP ONE (13:54)
[2016-12-17] MEDS ORDERED: *HR* Heparin 5,000 UNIT/ML VIAL IVP PRN ×2 (13:54)
[2016-12-17] MEDS ORDERED: Heparin 25,000 UNIT/500 ML D5W 25,000 UNIT/500 ML MLS IVC SCH (14:00)
[2016-12-17 14:13] LABS: INR 1.1; Prothrombin Time 12.1 Seconds (9.4-12.1)
[2016-12-17 14:16] LABS: Activated Partial Thrombo Time 30.5 Seconds (26.0-36.0)
--- NOTE | 2016-12-17 14:50 | Cardiology Consult Note ---
Date of Encounter: 12/17/16 Time of Encounter: 14:48 Assessment and Plan (1) Chest pain Current Visit: Yes Status: Acute Qualifiers: Chest pain type: unspecified Qualified Code(s): R07.9 - Chest pain, unspecified (2) Atrial fibrillation Current Visit: Yes Status: Chronic Per cardiology: -Recent diagnosis of atrial fibrillation October 2016. -Avaco2ostb score 1. Not on anticoagulation. Had been having issues with rectal bleeding. -Stool this admission negative for OB. Hemoglobin stable 15.1. -HR controlled. On beta shila. -Will continue to monitor. Qualifiers: Atrial fibrillation type: unspecified Qualified Code(s): I48.91 - Unspecified atrial fibrillation Discussion w patient/family: The assessment and plan as outlined above was discussed with the patient and/or family members who expressed understanding and agreement. All questions were answered. Thank you for involving us in the care of your patient. Please call with any questions. History of Present Illness Consult date: 12/17/16 Requesting physician: Gustavo Wasserman Consult reason: ECG changes Chief complaint: chest pain History of present illness: Mr. Bowden is a 56 year old male with a relevant past medical history of HTN and atrial fibrillation. Patient also has family history of CAD with brother having recent STEMI in his early 50s. Patient presents to [facility] with complaints of chest pain. Past Med Surg Social Fam HX - Past Medical History Medical history: no medical history, atrial fibrillation, other Psychiatric history: no psych history - Past Surgical History Surgical History: orthopedic, other (right femur ORIF), other - Social History Smoking Status: Former smoker Smokeless Tobacco Status: No Alcohol use: none Drug use: none - Family History Brother Living Status: Still Living Hx Family Cardiac Disorders: Yes Hx Family Cancer: Yes Father Hx Family Cancer: Yes Medications and Allergies Lisinopril [Zestril] 5 mg PO DAILY #30 tablet 11/03/16 [Rx] Metoprolol [Lopressor] 25 mg PO BID #60 tablet 11/03/16 [Rx] Atorvastatin [Lipitor] 40 mg PO HS 12/17/16 [History] Allergies No Known Allergies Allergy (Verified 05/29/16 17:00) All Systems Review: A 10-system review of systems was performed and is negative for pertinent findings except as documented above in the HPI. Results 12/17/16 11:40 07/20/17 11:40 Consult Discharge Plan - Plan Referrals: NO,PCP [Primary Care Provider] -
[2016-12-17] MEDS ORDERED: Acetaminophen 325 MG TABLET PO PRN (16:03)
[2016-12-17] MEDS ORDERED: *HR* HYDROcodone/Acet 5/325 mg TABLET PO PRN (16:03)
[2016-12-17] MEDS ORDERED: Ondansetron 4 MG/2 ML VIAL IVP PRN (16:03)
[2016-12-17] MEDS ORDERED: Naloxone 0.4 MG/ML INJ IVP PRN (16:03)
[2016-12-17] MEDS ORDERED: *HR* Morphine 2 MG/ML SYRINGE IVP PRN (16:03)
--- NOTE | 2016-12-17 16:16 | Internal Med History&Physical ---
<Gustavo Stafford - Last Filed: 12/17/16 16:39> Date of Encounter: 12/17/16 Time of Encounter: 15:15 Assessment and Plan (1) Chest pain Current visit: Yes Status: Acute Patient presents with chief complaints of acute chest pain which began approximately 9:30 this morning. Patient describes pain as sharp and stabbing that radiated from his left chest and radiated to his left shoulder and left arm. Patient describes pain as constant and without exertion. He also states this has never happened before. Cardiology consult placed in the ED with recommendations to begin IV nitroglycerin drip as well as IV heparin drip. Patient placed on continuous cardiac telemetry with supplemental O2 and continuous SPO2 monitoring. Vital signs ordered Q15MIN due to current HTN of 149 /104. Patient to be monitored closely for signs of increased cardiac and/or respiratory distress. Qualifiers: Chest pain type: unspecified Qualified Code(s): R07.9 - Chest pain, unspecified (2) SOB (shortness of breath) Current visit: Yes Status: Acute Patient presents with acute shortness of breath he reports this in conjunction with his chest pain. Patient denies any use of oxygen at home. Supplemental O2 ordered with titration if SpO2 < 92%. Continuous SpO2 monitoring ordered. Patient to be placed as up with assist and bed rest with bathroom privileges with assist only. (3) HLD (hyperlipidemia) Current visit: Yes Status: Chronic Patient presents with history of chronic hyperlipidemia. Lipid panel ordered. Will continue patient's Lipitor. Qualifiers: Hyperlipidemia type: pure hypercholesterolemia Qualified Code(s): E78.00 - Pure hypercholesterolemia, unspecified; E78.0 - Pure hypercholesterolemia (4) Atrial fibrillation Current visit: Yes Status: Chronic Patient presents with history of atrial fibrillation he reports was diagnosed one month ago. Patient is currently not on any anticoagulation therapy. IV heparin drip initiated to ED per cardiology and will be continued. Cardiology consult ordered. Will administer daily aspirin 81 mg. Follow-up APTT/INR ordered. Qualifiers: Atrial fibrillation type: unspecified Qualified Code(s): I48.91 - Unspecified atrial fibrillation (5) Essential hypertension Current visit: Yes Status: Chronic Patient presents with history of chronic hypertension. Patient's curent BP is 148/104 during examination. Vital signs ordered Q15MIN. Will monitor patient and vital signs. We will continue patient's lisinopril and Lopressor. (6) DVT prophylaxis Current visit: Yes Status: Acute Patient placed on DVT prophylaxis per cardiology. IV heparin drip initiated in ED and will be continued. Internal Medicine - H&P: HPI Chief complaint: Chest pain Admitted From: Emergency Dept Plans for Post Hospital Care: Home History of present illness: Mr. Bowden is a 56 year old male presents from the ED with chief complaint of chest pain which he states began approximately 9:30 this morning as a sharp and stabbing pain in his left chest that radiated to his left shoulder and left arm. Lesion states the pain was constant without exertion and caused him to become diaphoretic. He also states this has not happened before. Patient reports he was diagnosed with atrial fibrillation approximately one month ago. Patient denies nausea, vomiting, dizziness, generalized weakness, diarrhea, constipation, presyncope, or syncope. Patient does report some shortness of breath with chest pain. On examination, patient's heart rate is 62-67 bpm and he is currently in atrial fibrillation. Blood pressure is currently 149/102. Cardiology consult was placed while the patient was in the ED and Dr. Tai agreed to follow the patient with recommendations to begin nitroglycerin drip and heparin drip. Currently patient does not take any anticoagulation. Echocardiogram was done approximately 1 month ago with findings: LVEF 50-55%, normal LV chamber size and low normal function, mild concentric left ventricular hypertrophy, indeterminate diastolic function, normal right ventricular structure and function, moderately dilated left atrium, mild mitral regurgitation, and no evidence of pulmonary hypertension. Patient is at moderate risk for cardiac event based on current symptomology and will be placed as observation status with continuous cardiac telemetry and supplemental O2 with continuation of heparin drip and IV nitroglycerin drip. Will continue patient's Lopressor, lisinopril, and Lipitor. Patient to be monitored closely for continued signs of increased cardiac distress hypertension. Time spent witnh patient greater than 40 minutes. Past Med Surg Social Fam HX - Past Medical History Source: patient Medical history: atrial fibrillation, other Psychiatric history: no psych history - Past Surgical History Surgical History: orthopedic, other (right femur ORIF), other - Social History Smoking Status: Former smoker (Reports quitting in 1981) Smokeless Tobacco Status: No Alcohol use: none Drug use: none Occupational status: employed Current living situation: Home, With Family Activity Level: Independent ambulation Recent Out of Country Travel Within the Last 8 Weeks: No Exposure or Possible Exposure to Illness During Travel: No - Family History Brother Living Status: Still Living Hx Family Cardiac Disorders: Yes ([place], HD) Hx Family Cancer: Yes Father History Unknown: Yes Adopted: [place]: Kacy Bowden Jr. Living Status: Age at : 68 Cause of : Cancer, Non hodgkins lymphoma Hx Family Cardiac Disorders: No Hx Family Respiratory Disorders: No Hx Family Cancer: Yes (Non Hodgkins lymphoma) Hx Family GI Disorders: No Hx Family Genitourinary Disorders: No Hx Family Endocrine Disorder: No Hx Family Musculoskeletal Disorders: No Hx Family Neuromuscular Disorders: No Hx Family Neurologic Disorders: No Hx Family HEENT Disorders: No Hx Family Autoimmune Disorders: No Hx Family Reproductive Disorders: No Hx Family Psychosocial Disorders: No Hx Family Medical Disorders: No Mother Adopted: [place]: Matilda Bowden Living Status: Age at : 82 Cause of : Metastatic cancer Hx Family Cardiac Disorders: Yes ([place], HD) Hx Family Respiratory Disorders: No Hx Family Cancer: Yes Hx Family GI Disorders: No Hx Family Genitourinary Disorders: No Hx Family Endocrine Disorder: Yes (Goiter) Hx Family Musculoskeletal Disorders: No Hx Family Neuromuscular Disorders: No Hx Family Neurologic Disorders: No Hx Family HEENT Disorders: Yes (GOiter, glaucoma) Hx Family Autoimmune Disorders: No Hx Family Reproductive Disorders: No Hx Family Psychosocial Disorders: No Hx Family Medical Disorders: No Sister Living Status: Still Living Hx Family Cardiac Disorders: Yes (HTN) Hx Family Cancer: Yes (Renal) Internal Medicine - H&P: Meds Lisinopril [Zestril] 5 mg PO DAILY #30 tablet 11/03/16 [Rx] Metoprolol [Lopressor] 25 mg PO BID #60 tablet 11/03/16 [Rx] Atorvastatin [Lipitor] 40 mg PO HS 12/17/16 [History] Allergies No Known Allergies Allergy (Verified 05/29/16 17:00) All Systems PM: A 10-system review of systems was performed and is negative for pertinent findings except as documented above in the HPI. - Constitutional Constitutional: no chills, no fever(s), no night sweats - EENT Eyes: no change in vision, no discharge, no pain, no photophobia Ears: no ear discharge, no ear pain, no tinnitus Nose, mouth and throat: no dysphagia, no nasal discharge, no neck pain, no sore throat - Breasts Breasts: as per HPI - Cardiovascular Cardiovascular ROS IM: as per HPI, chest pain, dyspnea, irregular heart rhythm - Respiratory Respiratory: as per HPI, dyspnea - Gastrointestinal Gastrointestinal: no abdominal pain, no diarrhea, no hematemesis, no hematochezia, no melena, no nausea, no vomiting - Genitourinary Genitourinary ROS male: as per HPI - Musculoskeletal Musculoskeletal ROS IM: no numbness, no tingling - Integumentary Integumentary IM: no rash, no unusual bruising - Neurological Neurological ROS: no confusion, no convulsions, no focal weakness, no numbness, no tingling, no tremor(s) - Psychiatric Psychiatric: as per HPI - Endocrine Endocrine IM: as per HPI - Hematologic/Lymphatic Hematologic/Lymphatic: no easy bruising - Allergic/Immunologic Allergic/Immunologic: as per HPI - Constitutional Vitals: Temp Pulse Resp BP Pulse Ox 98.1 F 65 16 169/120 98 12/17/16 11:22 12/17/16 14:00 12/17/16 15:04 12/17/16 15:29 12/17/16 14:00 General appearance: Present: cooperative, A&O X 3, pleasant, no acute distress, obese, answers questions appropriately - Head Head exam: Present: atraumatic, normocephalic - Eye Eye exam: Present: PERRL, conjuntiva pink, sclera anicteric Pupils: Present: PERRL - ENT ENT exam: Present: normal exam, normal external ear exam - Neck Neck exam general surgery: Present: normal inspection, supple, trachea midline - Respiratory Respiratory exam: Present: CTAB. Absent: accessory muscle use, rales, rhonchi, wheezes - Cardiovascular Cardiovascular exam: Present: irregular rhythm - GI/Abdominal GI/Abdominal exam: Present: normal bowel sounds, soft, no peritoneal signs. Absent: distended, tenderness - Rectal Rectal exam: Present: deferred - Additional comments: exam deferred. - Extremities Exam Extremities exam: Present: warm, radial pulses palpable and symetrical. Absent : calf tenderness, cyanotic, pedal edema - Back Exam Back exam: Present: normal inspection - Neurological Exam Neurological exam: Present: CN II-XII intact, oriented X3, no focal deficits. Absent: pronater drift, facial droop, speech deficit - Psychiatric Psychiatric exam: Present: normal affect, normal mood - Skin Skin exam: Present: dry, intact Internal Med - H&P Results - Labs CBC & Chem 7: 12/17/16 11:40 12/17/16 11:40 - EKG Data Prior EKG available for review: yes EKG comments: 12/17/16 16:24 EKGs dated 11/02/16 and 12/17/16 show atrial fibrillation with moderate intraventricular conduction delay and possible right ventricular hypertrophy. - Diagnostic Studies Chest x-ray Additional comments: Impressions Chest X-Ray 12/17/16 11:30 IMPRESSION: No acute process. D/ / Ernesto Ronquillo MD / Ernesto Ronquillo MD Interpreting Provider: Ernesto Ronquillo MD <Michael Wallace - Last Filed: 12/17/16 19:18> Date of Encounter: 12/17/16 Internal Medicine - H&P: HPI History of present illness: Mr. Bowden is a 56 year old male All Systems PM: A 10-system review of systems was performed and is negative for pertinent findings except as documented above in the HPI. - Constitutional Vitals: Temp Pulse Resp BP Pulse Ox 98.4 F 57 17 124/86 97 12/17/16 18:36 12/17/16 18:36 12/17/16 18:36 12/17/16 18:36 12/17/16 18:36 Internal Med - H&P Results - Labs CBC & Chem 7: 12/17/16 11:40 12/17/16 11:40 - Attending Attestation I saw and examined pt. I discussed with PRODUCTION MACHINE OPERATOR regarding the management plan. Agree with the documentation. Pt has chest pain with left arm rediation, respond to NTG treatment. ER found EKG ST-T change and consulted cardio, heparin drip started per cardio consult. Pt is pain free now. Will continue current treatment and closely monitor pt.
[2016-12-17] MEDS: Pantoprazole 40 MG VIAL IVP SCH (16:37)
[2016-12-18 04:42] LABS: Basophils # 0.1 K/mcL (0.0-0.2); Basophils % 1.1 %; Eosinophils # 0.4 K/mcL (0.0-0.6); Eosinophils % 5.5 %; Hematocrit 45.2 % (37.5-50.1); Hemoglobin 14.9 g/dL (12.9-16.9); Immature Granulocytes % 0.5 % (0-4); Lymphocytes # 3.4 K/mcL (0.6-4.6); Lymphocytes % 41.7 %; Mean Corpuscular Hemoglobin 28.7 pg (28.0-33.3); Mean Corpuscular Volume 86.9 fL (83.0-100.0); Mean Platelet Volume 9.8 fL (9.4-12.4); Monocytes # 0.5 K/mcL (0.0-1.3); Monocytes % 6.7 %; Neutrophils # 3.6 K/mcL (1.6-8.9); Platelet Count 181 K/mcL (140-400); Red Cell Distribution Width 13.2 % (11.5-14.5); Segmented Neutrophils % 44.5 %
[2016-12-18 05:01] LABS: BUN/Creatinine Ratio 13 (6-26); Blood Urea Nitrogen 13 mg/dL (8-26); Calcium 8.6 mg/dL (8.6-10.8); Carbon Dioxide 28 mEq/L (19-29); Chloride 106 mEq/L (98-109); Chol/HDL Ratio 5.4 (0-4.9); Cholesterol 140 mg/dL (< 200); Glucose 99 mg/dL (70-99); HDL Cholesterol 26 mg/dL (40-59); LDL Cholesterol,Calculated 60 mg/dL (0-99); Magnesium 1.9 mg/dL (1.6-2.6); Osmolality,Calculated 290 (280-300); Potassium 3.9 mEq/L (3.5-4.5); Sodium 140 mEq/L (136-145); Triglycerides 272 mg/dL (< 150); eGFR For African Americans > 60 (> 60); eGFR For Non-African Americans > 60 (> 60)
[2016-12-18 05:11] LABS: INR 1.2; Prothrombin Time 12.9 Seconds (9.4-12.1)
[2016-12-18 05:14] LABS: Activated Partial Thrombo Time 57.7 Seconds (26.0-36.0)
[2016-12-18] MEDS: Pantoprazole 40 MG VIAL IVP SCH (08:53)
[2016-12-18] MEDS: Aspirin Enteric Coated 81 MG Tablet PO SCH (08:53)
--- NOTE | 2016-12-18 09:19 | Cardiology Consult Note ---
Date of Encounter: 12/18/16 Time of Encounter: 08:00 Assessment and Plan (1) Unstable angina pectoris Current Visit: Yes Status: Acute Per cardiology: -ADmitted with left sided chest pain that radiated to left shoulder. -Pain started during excertional activities at work. -Pain relieved by nitro drip. -CUrrently chest pain free. -Troponins negative x3. -Echo 11/02/16 with LVEF 50-55%, mild concentric left ventricular hypertrophy, indeterminate diastolic function, moderately dilated left atrium, mild MR, all wall segments with normal motion. -ECG with T wave inversions leads II, III, and aVf. -ON asa, statin, beta shila, and heparin drip. -Patient with history of HTN, hyperlipidemia, and family history of CAD. -Of note, during last admission patient admitted to having some rectal bleeding. Stool positive for occult blood last admission. Patient denies bleeding since last admission. Stool negative for occult blood this admission. Hemoglobin has remained stable and today is 14.9. -Per discussion with , recommend LHC. Risks versus benefits of LHC explained to patient and family. Patient agreeable to proceed. -Further recommendations pending LHC. (2) Atrial fibrillation Current Visit: Yes Status: Chronic Per cardiology; -Recent diagnosis of a.fib October 2016. -On beta shila. -Chads 2 vasc score 1 (HTN). NO recommendations for snf anticoagulation were given during last admission due to low [id number] score. -HRs controlled with average HR 60, atrial fibrillation. Longest pause 2.9 seconds during nocturnal hours. -Bps 100-120s systolic. -Can consider outpatient sleep study. -Will continue to monitor. Qualifiers: Atrial fibrillation type: unspecified Qualified Code(s): I48.91 - Unspecified atrial fibrillation Discussion w patient/family: The assessment and plan as outlined above was discussed with the patient and/or family members who expressed understanding and agreement. All questions were answered. Thank you for involving us in the care of your patient. Please call with any questions. Discussed and reviewed with . History of Present Illness Consult date: 12/17/16 Requesting physician: Gustavo Wasserman Consult reason: ECG changes Chief complaint: chest pain History of present illness: Mr. Bowden is a 56 year old male with a relevant past medical history of HTN, Hyperlipidemia, atrial fibrillation. Patient has a family history of CAD with his brother having STEMI in his 60s. Patient presented to [facility] with complaints of left sided chest pain that radiated to left shoulder. Patient states pain started while excerting himself at work. Patient states pain was not relieved until nitro drip was started in ER. Of note, patient was seen by myself in cardiology clinic and complained of increased fatigue. Stress test was ordered, however patient did not have completed prior to arrival in ER. Patient admits to worsening fatigue and worsening shortness of breath. Patient denies current chest pain. Past Med Surg Social Fam HX - Past Medical History Source: patient, old records reviewed, obtained from family Medical history: atrial fibrillation, hyperlipidemia, hypertension, other Psychiatric history: no psych history - Past Surgical History Surgical History: orthopedic, other (right femur ORIF), other - Social History Smoking Status: Former smoker (Reports quitting in 1981) Smokeless Tobacco Status: No Alcohol use: none Drug use: none - Family History Brother Living Status: Still Living Hx Family Cardiac Disorders: Yes ([place], HD) Hx Family Cancer: Yes Father History Unknown: Yes Adopted: [place]: Kacy Bowden JrHipolito Family Member Ethnicity: Non- Living Status: Age at : 68 Cause of : Cancer, Non hodgkins lymphoma Hx Family Cardiac Disorders: No Hx Family Respiratory Disorders: No Hx Family Cancer: Yes (Non Hodgkins lymphoma) Hx Family GI Disorders: No Hx Family Genitourinary Disorders: No Hx Family Endocrine Disorder: No Hx Family Musculoskeletal Disorders: No Hx Family Neuromuscular Disorders: No Hx Family Neurologic Disorders: No Hx Family HEENT Disorders: No Hx Family Autoimmune Disorders: No Hx Family Reproductive Disorders: No Hx Family Psychosocial Disorders: No Hx Family Medical Disorders: No Mother Adopted: [place]: Dwaynecheleshree Bowden Family Member Ethnicity: Non- Living Status: Age at : 82 Cause of : Metastatic cancer Hx Family Cardiac Disorders: Yes ([place], HD) Hx Family Respiratory Disorders: No Hx Family Cancer: Yes Hx Family GI Disorders: No Hx Family Genitourinary Disorders: No Hx Family Endocrine Disorder: Yes (Goiter) Hx Family Musculoskeletal Disorders: No Hx Family Neuromuscular Disorders: No Hx Family Neurologic Disorders: No Hx Family HEENT Disorders: Yes (GOiter, glaucoma) Hx Family Autoimmune Disorders: No Hx Family Reproductive Disorders: No Hx Family Psychosocial Disorders: No Hx Family Medical Disorders: No Sister Living Status: Still Living Hx Family Cardiac Disorders: Yes (HTN) Hx Family Cancer: Yes (Renal) Medications and Allergies Lisinopril [Zestril] 5 mg PO DAILY #30 tablet 11/03/16 [Rx] Metoprolol [Lopressor] 25 mg PO BID #60 tablet 11/03/16 [Rx] Atorvastatin [Lipitor] 40 mg PO HS 12/17/16 [History] Allergies No Known Allergies Allergy (Verified 05/29/16 17:00) All Systems Review: A 10-system review of systems was performed and is negative for pertinent findings except as documented above in the HPI. - Constitutional Constitutional: fatigue - Cardiovascular Cardiovascular: as per HPI, chest pain with exertion, dyspnea on exertion Physical Examination Vital Signs, Last 4 Hours Temp Pulse Resp BP Pulse Ox 12/18/16 07:55 97.8 F 62 16 123/99 98 General: Conversant, No Apparent Distress HEENT: Atraumatic, Normocephaly, Mucus Membranes Moist Neck: No JVD, Normal carotid pulses Cardiac: Reg Rate and Rhythm, Normal S1 and S2, No Murmur Lungs: Normal Breath Sounds, No Wheeze, Rales, Rhonchi Neuro: Alert and responsive, No focal deficits noted Abdomen: Soft, Non-Tender Skin: No rashes noted on visualized skin Musculoskeletal: No Chest Wall Tenderness Extremities: No Clubbing, No Cyanosis, No Edema, Normal Pulses Results 12/18/16 04:06 12/18/16 04:06 Lab Results Impressions Chest X-Ray 12/17/16 11:30 IMPRESSION: No acute process. D/ / Ernesto Ronquillo MD / Ernesto Ronquillo MD Interpreting Provider: Ernesto Ronquillo MD Active Medications Acetaminophen (Tylenol) 650 mg PO Q6HR PRN PRN Reason: Mild Pain (1-3) Stop: 06/18/17 16:04 Hydrocodone Bitart/Acetaminophen ([place] 5-325 Mg) 1 tab PO Q4HR PRN PRN Reason: Moderate Pain (4-6) Stop: 06/18/17 16:04 Aspirin (Aspirin Ec) 81 mg PO DAILY [facility]ON Stop: 06/19/17 09:01 Last Admin: 12/18/16 08:53 Dose: 81 mg Heparin Sodium (Porcine) (Heparin) 4,000 unit IVP Q6HR PRN PRN Reason: SEE COMMENTS Stop: 06/18/17 13:55 Heparin Sodium (Porcine) (Heparin) 2,000 unit IVP Q6H PRN PRN Reason: SEE COMMENTS Stop: 06/18/17 13:55 Last Admin: 12/18/16 05:48 Dose: 2,000 unit Nitroglycerin (Nitroglycerin) 25 mg in 250 mls @ 3 mls/hr IVC .Q24H BAIRON; 5 MCG/ MIN PRN Reason: Protocol Stop: 06/18/17 12:01 Last Titration: 12/18/16 05:51 Dose: 0 mcg/min, 0 mls/hr Heparin Sodium/Dextrose (Heparin 25,000 Unit/500 Ml D5w) 25,000 unit in 500 mls @ 19.894 mls/hr IVC .Q24H BAIRON; 10.2 UNIT/KG/HR PRN Reason: Protocol Stop: 06/18/17 14:01 Last Titration: 12/18/16 05:49 Dose: 12.2 unit/kg/hr, 23.795 mls/hr Lisinopril (Zestril) 5 mg PO DAILY [facility] PRN Reason: Protocol Stop: 06/19/17 09:01 Last Admin: 12/18/16 08:53 Dose: 5 mg Metoprolol Tartrate (Lopressor) 25 mg PO BID [facility] Stop: 06/18/17 21:01 Last Admin: 12/18/16 08:53 Dose: 25 mg Morphine Sulfate (Morphine Sulfate) 2 mg IVP Q4HR PRN PRN Reason: Severe Pain (7-10) Stop: 06/18/17 16:04 Naloxone HCl (Narcan) 0.4 mg IVP Q2MIN PRN PRN Reason: Opioid Reversal Stop: 06/18/17 16:04 Ondansetron HCl (Zofran) 4 mg IVP Q8HR PRN PRN Reason: Nausea And Vomiting Stop: 06/18/17 16:04 Pantoprazole Sodium (Protonix) 40 mg IVP DAILY [facility] Stop: 06/18/17 16:16 Last Admin: 12/18/16 08:53 Dose: 40 mg Simvastatin (Zocor) 40 mg PO HS [facility] Stop: 06/18/17 21:01 Last Admin: 12/17/16 20:41 Dose: 40 mg Laboratory Tests 12/17/16 12/17/16 12/17/16 11:40 13:19 20:31 Hgb Creatinine Troponin I 0.00 0.01 Triglycerides Cholesterol LDL Cholesterol, Calc HDL Cholesterol Stool Occult Blood Negative 12/18/16 12/18/16 12/18/16 04:06 04:06 04:06 Hgb 14.9 Creatinine 1.00 Troponin I 0.00 Triglycerides 272 H Cholesterol 140 LDL Cholesterol, Calc 60 HDL Cholesterol 26 L Stool Occult Blood - Imaging and Cardiology Chest Xray: report reviewed Echo: report reviewed - EKG Interpretation EKG results cardiology: personally reviewed (ECGs reviewed with atrial fibrillation with T wave inversion in leads II, III, and aVf. T wave inversions new since ECG 10/2016.), other (Telemetry reviewed with average HR 60, atrial fibrillation. Longest pause 2.9 seconds at 0213.) Consult Discharge Plan - Plan Referrals: NO,PCP [Primary Care Provider] -
--- NOTE | 2016-12-18 10:04 | Pre-Sedation Evaluation ---
Pre-sedation evaluation - Pre-sedation checklist Date of procedure: 12/18/16 Procedure: [facility] Recent Vitals: Last Vital Signs Temp 97.8 F 12/18/16 07:55 Pulse 62 12/18/16 07:55 Resp 16 12/18/16 07:55 BP 123/99 12/18/16 07:55 Pulse Ox 98 12/18/16 07:55 H&P (including ROS) documented in medical record: Yes Previous reaction to sedatives/anesthetics: No Dietary Status: NPO after Midnight Airway Assessment: Patient can open mouth completely, TMJ function normal Dentition: No loose teeth or bridges ASA Classification *see protocol: CLASS II-Mild systemic disease Plan of Care: Pt appropriate candidate for procedure/moderate/conscious sedation , Risks/benefits of procedure/sedation discussed w/ patient/family
[2016-12-18] MEDS ORDERED: *HR* Midazolam HCl 2 MG/2 ML VIAL ONE ×2 (10:10→10:49)
[2016-12-18] MEDS ORDERED: Heparin 1,000 UNITS/500 mL NS 500 ML ONE (10:10)
[2016-12-18] MEDS ORDERED: 0.9 % Sodium Chloride 2,000 ML ONE (10:10)
[2016-12-18] MEDS ORDERED: Verapamil 5 MG/2 ML VIAL ONE (10:10)
[2016-12-18] MEDS ORDERED: *HR* FentaNYL (PF) 100 MCG/2 ML VIAL ONE (10:10)
[2016-12-18] MEDS ORDERED: *HR* Heparin 10,000 UNIT/10 ML VIAL ONE (10:11)
[2016-12-18] MEDS ORDERED: Nitroglycerin 1,000 MCG/10 ML VIAL IV ONE (10:11)
[2016-12-18 10:26] LABS: Activated Partial Thrombo Time 124.8 Seconds (26.0-36.0)
[2016-12-18 10:45] LABS: Heparin anti-factor XA UFH 0.52 IU/mL (0.30-0.70)
--- NOTE | 2016-12-18 11:17 | Invasive Diagnostic Lab Proc ---
Name: Talat Bowden Date of Study: 12/18/2016 Date: 1960 Ht: 72.0in Medical Record#: [id number] Age: 56 Wt: 220.46lb Gender: Male BSA: 2.22 Order #: [id number] BMI: 29.89 Physicians Procedure Physician: Marcio Andre MD, [facility] Referring MD: Referring MD: Staff Name Position Time In Obdulia Jimenez RT Scrub 10:35 AM Sudarshan Foster RT (R) Monitor 10:35 AM Rayne Garcia RN Smelter Liner 10:35 AM Carrie Enciso RN Smelter Liner 10:36 AM Indications Indication Unstable Angina EKG changes Procedures Performed Procedure L HRT ARTERY/VENTRICLE ANGIO Pre-Procedure Checklist Informed consent is complete signed and on chart. H&P is on chart. ID band is on and ID verified with patient. Patient NPO for procedure The procedure was described for the patient and questions were answered. Blood Pressure: 123/99 ECG is on chart. Rhythm: Atrial Fibrillation Plan of Care Patient will tolerate the procedure without complications. Adequate level of comfort will be maintained. Hemodynamics will remain stable Patient will recover from procedure without complications. Respiratory function will be maintained. Cardiac rhythm will remain stable. Patient temperature will be maintained. Patient and/or family have verbalized understanding of the procedure. Patient Education Chief Complaint/Reason for Test: Cardiac Cath Developmental Category: Adult (18-64 years) Developmentally Appropriate for Age: Yes Learning Barriers: None Education Needs: Procedure Education Method: Verbal Information Taught: Cardiac Cath Educational Evaluation: Able to repeat information Intravenous Access Time IV Size Location DC'd Fluid/Drip Rate Units RN 10:36 AM 20g 1 1/4" Peripheral-Lock On Arrival Rt Hand 0.9NaCl 25 Rayne Garcia RN 10:37 AM 20g 1 1/4" Peripheral-Lock On Arrival Lt Hand Allergies No Known Allergies Vital Signs Time BP (mmHg) HR (bpm) O2 Sat. RR (bpm) LOC 10:36 AM 123 / 99 81 99 % 18 5 = Fully awake and oriented or at pre-proc level 10:36 AM / % 4 = Oriented but drowsy 10:51 AM / % 5 = Fully awake and oriented or at pre-proc level 10:42 AM 156 / 113 73 97 % 18 10:45 AM 145 / 106 68 92 % 14 10:50 AM 145 / 100 76 95 % 11 10:55 AM 140 / 106 85 93 % 15 11:00 AM 132 / 98 87 95 % 14 11:05 AM 137 / 95 74 97 % 8 Procedural Medications Time Medication Dose Units Method Given By 10:45 AM Versed 2 mg Intravenous Carrie Enciso RN 10:45 AM Fentanyl 50 mcg Intravenous Carrie Enciso RN 10:47 AM Lidocaine 2% 0.5 ml Subcutaneous Marcio Andre MD, [facility] 10:50 AM Versed 1 mg Intravenous Carrie Enciso RN 10:50 AM Fentanyl 25 mcg Intravenous Carrie Enciso RN 10:52 AM Lidocaine 2% 14 ml Subcutaneous Marcio Andre MD, [facility] ASA Classification: CLASS II- Mild systemic disease (i.e. well-controlled diabetes, hypertension, asthma, cigarette smoking) Valery Score Preprocedure Postprocedure Activity 2- Moves 4 extremities sustained head lift Activity 2- Moves 4 extremities sustained head lift Circulation 2- SBP +/= 20 points of pre-anesthetic level Circulation 2- SBP +/= 20 points of pre-anesthetic level Consciousness 2- Awake and alert oriented x 3 Consciousness 2- Awake and alert oriented x 3 O2 Saturation 2- Able to maintain O2 satruation of 92% on room air O2 Saturation 2- Able to maintain O2 satruation of 92% on room air Respiratory 2- Able to deep breathe and cough well Respiratory 2- Able to deep breathe and cough well Total Score 10 Total Score 10 Contrast Agent: Isovue Diagnostic Contrast: 64 ml Total Contrast: 64 ml Fluoro Dose: 165 mGy Procedure Log Time Note Enter By 10:34 AM Pt arrived to slab off mill tender 2 at 10:34 [email or web address] 10:35 AM Patient charges- Angio tray pack, Navilyst 3mm J, Pulse Oximetry and ACIST tubing and transducer [email or web address] 10:35 AM Case Delayed No [email or web address] 10:35 AM Physician arrived 10:35 [email or web address] 10:35 AM Ryan and kera completed [email or web address] 10:35 AM ASA Class CLASS II- Mild systemic disease (i.e. well-controlled diabetes, hypertension, asthma, cigarette smoking) [email or web address] 10:35 AM Meet and grejame completed [email or web address] 10:35 AM Sign in performed according to hospital policy. [email or web address] 10:35 AM Procedure start 10:35 [email or web address] 10:35 AM CathStat 10:35 AM Obdulia Jimenez RT Position: Scrub Time in: 10:35 [email or web address] 10:35 AM Sudarshan Foster RT (R) Position: Monitor Time in: 10:35 [email or web address] 10:35 AM Rayne Garcia RN Position: Smelter Liner Time in: 10:35 [email or web address] 10:36 AM Carrie Enciso RN Position: Smelter Liner Time in: 10:36 [email or web address] 10:36 AM Time: 10:36 Patient comfortable and pain free: Yes [email or web address] 10:36 AM Time: 10:36LOC: 5 = Fully awake and oriented or at pre-proc level [email or web address] 10:41 AM Vitals capture started with the following parameters, Patient=Adult, Interval=5 min, Initial Lzdhykgu=848 mmHg, Deflation Rate=5 mmHg, Cuff placed on Left Arm 10:41 AM Recorded ECG: HR=76 Condition=Condition 1 10:41 AM Vitals capture started with the following parameters, Patient=Adult, Interval=5 min, Initial Kqxbzlqn=442 mmHg, Deflation Rate=5 mmHg, Cuff placed on Left Arm 10:42 AM Hair removed from procedure site in procedure lab using clippers. Right groin prepped with Chloraprep by Obdulia Jimenez, safety strap applied then patient was draped. Skin intact. [email or web address] 10:42 AM Hair removed from procedure site in procedure lab using clippers. Right wrist prepped with Chloraprep by Obdulia Jimenez, safety strap applied then patient was draped. Skin intact. [email or web address] 10:42 AM HR=73 bpm, IWBR=985/113 mmhg, SpO2=97.0 %, Resp=18 B/min, Comment=afib 10:43 AM Clinical Presentation: Unstable angina [email or web address] 10:44 AM Vitals capture stopped. 10:44 AM Vitals capture started with the following parameters, Patient=Adult, Interval=5 min, Initial Kqiywtmz=279 mmHg, Deflation Rate=5 mmHg, Cuff placed on Left Arm 10:45 AM HR=68 bpm, HJPI=341/106 mmhg, SpO2=92.0 %, Resp=14 B/min, Comment=afib 10:45 AM Time: 10:45 Versed 2 mg Intravenous Given by Carrie Enciso RN [email or web address] 10:45 AM Time: 10:45 Fentanyl 50 mcg Intravenous Given by Carrie Enciso RN [place] [id number] 10:46 AM Time out performed according to hospital policy [email or web address] 10:47 AM Time: 10:47 0.5 ml Lidocaine 2% to right radial Subcutaneous Given by Marcio Andre MD, [facility] 10:47 AM Pressure channel 1 zeroed. 10:48 AM Unsuccessful access attempt # 1 into the right Femoral artery. Manual pressure applied to achieve hemostasis.. unable to advance wire [email or web address] 10:49 AM Vitals capture stopped. 10:49 AM Vitals capture started with the following parameters, Patient=Adult, Interval=5 min, Initial Xkyxuztu=853 mmHg, Deflation Rate=5 mmHg, Cuff placed on Left Arm 10:50 AM HR=76 bpm, ZHJG=692/100 mmhg, SpO2=95.0 %, Resp=11 B/min, Comment=afib 10:50 AM Time: 10:50 Versed 1 mg Intravenous Given by Carrie Enciso RN [place] [id number] 10:50 AM Time: 10:50 Fentanyl 25 mcg Intravenous Given by Carrie Enciso RN [place] [address] 10:50 AM Unsuccessful access attempt # 2 into the right Femoral artery. Manual pressure applied to achieve hemostasis.. [email or web address] 10:51 AM Time: 10:36LOC: 4 = Oriented but drowsy [email or web address] 10:51 AM Time: 10:36 Patient comfortable and pain free: Yes [email or web address] 10:51 AM unable to access right radial moving to right femoral [email or web address] 10:52 AM Time: 10:52 14 ml Lidocaine 2% to right groin Subcutaneous Given by Marcio Andre MD, [facility] 10:53 AM Access obtained by percutaneous puncture. 6Fr 10cm Terumo Glidesheath sheath placed in right Femoral artery. [id number] [email or web address] 10:54 AM 0.035 145cm Navilyst 3mmJ wire [id number] [email or web address] 10:54 AM 5Fr FL 4 catheter inserted over the wire [place] [address] 10:54 AM LCA angiography performed in multiple views. [email or web address] 10:54 AM Recorded Pressure: Ao, HR=70, Condition=Condition 1 (Aorta) Ao 126/93/110 10:55 AM HR=85 bpm, JNUR=674/106 mmhg, SpO2=93.0 %, Resp=15 B/min, Comment=afib 10:55 AM Lesion found in Proximal LAD. Pre Stenosis: 40 Pre TENA Flow: [email or web address] 10:55 AM Proximal Left Anterior Descending Coronary Artery with 40% stenosis. If graft is supplying this territory, 0 % stenosis. [email or web address] 10:56 AM Catheter removed [email or web address] 10:56 AM Lesion found in Mid LAD. Pre Stenosis: 20 Pre TENA Flow: [email or web address] 10:56 AM Mid/Distal Left Anterior Descending Coronary Artery and diagonal branches with 20% stenosis. If graft is supplying this area, 0 % stenosis [email or web address] 10:56 AM Lesion found in 1st Marginal. Pre Stenosis: 20 Pre TENA Flow: [email or web address] 10:56 AM Circumflex, Obtuse Marginal, Left Posterior Descending, and Left Posterolateral Coronary Arteries with 20 % stenosis. If graft is supplying this area, 0 % stenosis [email or web address] 10:56 AM 5Fr FR 4 catheter inserted over the wire [facility] [email or web address] 10:57 AM RCA angiography performed in multiple views. [email or web address] 10:57 AM Recorded Pressure: Ao, HR=83, Condition=Condition 1 (Aorta) Ao 132/108/121 10:57 AM Coronary Dominance: Co-dominant [email or web address] 10:57 AM Catheter removed [email or web address] 10:58 AM Lesion found in Proximal RCA. Pre Stenosis: 50 Pre TENA Flow: [email or web address] 10:58 AM Right Coronary, Right Posterior Descending Arteries with Right Posterolateral and Acute Marginal branches with 50 % stenosis. If graft is supplying this area, 0 % stenosis [email or web address] 10:58 AM 5Fr Pigtail catheter inserted over the wire [facility] [email or web address] 10:58 AM Catheter selectively placed in left ventricle [email or web address] 10:58 AM Bolus angiogram of left Ventricle complete: 10 ml/sec for a total of 30 mls [email or web address] 10:58 AM Pressure channel 1 zeroed. 10:59 AM Recorded Pressure: LV, HR=84, Condition=Condition 1 (Left Ventricle) LV 136/-7/7 10:59 AM Recorded Pressure: LV, Ao, HR=71, Condition=Condition 1 (Left Ventricle) LV 140/-6/39, (Aorta) Ao 129/83/106 10:59 AM Catheter removed [email or web address] 11:00 AM Bolus angiogram of right Femoral complete: 4 ml/sec for a total of 7 mls [email or web address] 11:00 AM HR=87 bpm, WHXY=418/98 mmhg, SpO2=95.0 %, Resp=14 B/min, Comment=afib 11:03 AM Arterial sheath pulled, Mynx closure device used and was Successful [id number] S/N. [email or web address] 11:03 AM Procedure completed at 11:03 [email or web address] 11:03 AM Sign out completed: Radiation Dose 165.09 mGy Fluoro Time: 0.8 Isovue 370 - 200ml contrast 64 ml given by Marcio Andre MD, FACC. Complications: NoneCardiac Rehab Consult needed: NoConfirmed administered medications: Yes [email or web address] 11:03 AM Isovue 370 - 200ml,1 Bottle(s) used. [email or web address] 11:04 AM Post ECG Atrial Fibrillation [email or web address] 11:04 AM Post Blood Pressure 132/98 [email or web address] 11:04 AM Information taught Cardiac Cath and Mynx [email or web address] 11:04 AM Education needs Procedure, Plan of Care, and Disease Process [email or web address] 11:04 AM Learning barriers :Sedated [email or web address] 11:04 AM Education Methods Verbal [email or web address] 11:04 AM Education evaluation Needs further instruction [email or web address] 11:04 AM Site status No bleeding/hematoma - Rt Groin as reported by Obdulia Jimenez RT at 11:04 [email or web address] 11:04 AM Opsite applied [email or web address] 11:04 AM Family placed in consult room. [email or web address] 11:04 AM Complications: None [email or web address] 11:05 AM Fluoro Time: 0.8 [email or web address] 11:05 AM Isovue 370 - 200ml contrast 64 ml given by Marcio Andre MD, FACC. [email or web address] 11:05 AM HR=74 bpm, QCQE=828/95 mmhg, SpO2=97.0 %, Resp=8 B/min, Comment=afib 11:05 AM Radiation Dose 165.09 mGy [email or web address] 11:05 AM Site status No bleeding/hematoma - Rt Wrist as reported by Obdulia Jimenez RT at 11:05 [email or web address] 11:05 AM Opsite applied [email or web address] 11:06 AM Time: 10:51 Patient comfortable and pain free: Yes [email or web address] 11:06 AM Time: 10:51LOC: 5 = Fully awake and oriented or at pre-proc level [email or web address] 11:07 AM 11:07 Post Pulses Bilateral DP & PT 2+ [email or web address] 11:07 AM 11:07 Post Pulses Rt Radial 2+ [email or web address] 11:08 AM Delay to floor No [email or web address] 11:08 AM Vitals capture stopped. 11:09 AM Report given to magnolia RAO Pt taken to E Room #28. 11:08 [email or web address] 11:11 AM Patient out of room: 11:11 [email or web address] Complications Complication None None Hemodynamics Pressures Site Systolic/A Wave Diastolic/V Wave Mean AO 126 93 110 AO 132 108 121 LV 136 -7 7 LV 140 -6 39 AO 129 83 106 Post Procedure Information Blood Pressure: 132/98 mmHg Rhythm: Atrial Fibrillation Post procedural instructions were given Closure Device Time Device Success/Fail 12/18/2016 11:03:00 AM MynxGrip Successful Site Checks Time Location Status Staff Sheath In? Note 11:04 AM Rt Groin No bleeding/hematoma Obdulia Jimenez RT 11:05 AM Rt Wrist No bleeding/hematoma Obdulia Jimenez Pulses Time Site Pre-Procedure Post-Procedure Note 12/18/2016 10:37:00 AM Bilateral DP & PT 2+ 12/18/2016 10:37:00 AM Rt Radial 2+ 11:07:00 AM Bilateral DP & PT 2+ 11:07:00 AM Rt Radial 2+ Updated by Sudarshan Foster RT (R) on 12/18/2016 11:12:20 AM Sudarshan Foster RT electronically signed on 12/18/2016 11:12:53 AM with status of Final
--- NOTE | 2016-12-18 11:41 | Internal Med Progress Note ---
Date of Encounter: 12/18/16 Time of Encounter: 11:38 - Assessment and plan (1) Unstable angina pectoris Current Visit: Yes Status: Acute Assessment and plan: s/p LHC which showed moderate CAD and medical management was recommended by cardiology. Cardiology input appreciated Imdur added as per cardio continue asa, statin, bb will closely monitor BP overnight. IF remains stable overnight, likely d/c in am (2) Essential hypertension Current Visit: Yes Status: Chronic Assessment and plan: BP within acceptable range continue home medications will closely monitor BP (3) Atrial fibrillation Current Visit: Yes Status: Chronic Assessment and plan: Rate controlled with BB no adjunct faculty for medical terminology anticoagulation recommended given CHADVASC score of 1 will continue tele monitoring Qualifiers: Atrial fibrillation type: unspecified Qualified Code(s): I48.91 - Unspecified atrial fibrillation (4) HLD (hyperlipidemia) Current Visit: Yes Status: Chronic Assessment and plan: continue statin therapy Qualifiers: Hyperlipidemia type: pure hypercholesterolemia Qualified Code(s): E78.00 - Pure hypercholesterolemia, unspecified; E78.0 - Pure hypercholesterolemia (5) DVT prophylaxis Current Visit: Yes Status: Acute Assessment and plan: Heparin SQ - Subjective Interval history: Patient seen and examined with family present at bedside. Resting in bed and is s/p [facility]. denies any chest pain,sob at this time. Denies any discomfort at this time. - Constitutional Vitals: Temp Pulse Resp BP Pulse Ox 97.8 F 69 16 123/99 98 12/18/16 07:55 12/18/16 11:26 12/18/16 07:55 12/18/16 07:55 12/18/16 07:55 General appearance: Present: cooperative, A&O X 3, pleasant, no acute distress, obese, answers questions appropriately - Head Head exam: Present: atraumatic, normocephalic - Eye Eye exam: Present: normal appearance, conjuntiva pink, sclera anicteric - Respiratory Respiratory exam: Present: CTAB. Absent: accessory muscle use, rales, rhonchi, wheezes - Cardiovascular Cardiovascular exam: Present: RRR, +S1, +S2. Absent: diastolic murmur, gallop, rubs, systolic murmur - GI/Abdominal GI/Abdominal exam: Present: normal bowel sounds, soft, no peritoneal signs. Absent: distended, tenderness - Extremities Exam Extremities exam: Present: warm, radial pulses palpable and symetrical. Absent : calf tenderness, cyanotic, pedal edema - Neurological Exam Neurological exam: Present: alert, oriented X3 - Psychiatric Psychiatric exam: Present: normal affect, normal mood Internal Medicine: Result - Labs CBC & Chem 7: 12/18/16 04:06 12/18/16 04:06 Labs: Short CBC 12/18/16 Range/Units 04:06 WBC 8.1 (4.3-11.1) K/mcL Hgb 14.9 (12.9-16.9) g/dL Hct 45.2 (37.5-50.1) % Plt Count 181 (140-400) K/mcL Neutrophils # 3.6 (1.6-8.9) K/mcL BMP 12/18/16 04:06 Sodium 140 Potassium 3.9 Chloride 106 Carbon Dioxide 28 BUN 13 Creatinine 1.00 Glucose 99 Calcium 8.6 Cardiac Enzymes 12/17/16 12/18/16 Range/Units 20:31 04:06 Troponin I 0.01 0.00 (0-0.03) ng/mL - ABG Interpretation ABG results: PT/INR, D-dimer PT 12.9 Seconds (9.4-12.1) H 12/18/16 04:06 Consult Discharge Plan - Plan Referrals: NO,PCP [Primary Care Provider] -
--- NOTE | 2016-12-18 12:11 | Event Note ---
Date of Encounter: 12/18/16 Time of Encounter: 12:09 - Cardiology Event Note LHC with moderate CAD per discussion with . Will add imdur for chest pain. Continue asa, statin, beta shila. Cardiology will sign off and will follow in outpatient setting. Follow up set.
--- NOTE | 2016-12-18 12:23 | Electrocardiograph Report ---
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
--- NOTE | 2016-12-18 12:23 | Electrocardiograph Report ---
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
--- NOTE | 2016-12-18 12:25 | Electrocardiograph Report ---
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
--- NOTE | 2016-12-18 13:02 | Invasive Diagnostic Lab ---
Name: Talat Bowden Date of Study: 12/18/2016 Date: 1960 Ht: 182.9 cm /72.0 in Medical Record#: [id number] Age: 56 Wt: 100. kg / 220.46 lb Account/Order#: [id number] Gender: Male BSA: 2.22 Order #: [id number] Fluoro Dose: 165 mGy BMI: 29.89 Procedure Physician: Marcio Andre MD, FACC Referring MD: Referring MD: Procedures Performed: LEFT HEART CATH Indications: Unstable Angina, EKG changes Impressions: Moderate atherosclerotic coronary artery disease. The left ventricle is normal and has normal contractility EF 50% Recommendations: Optimal medical therapy of patient's disease. Aggressive risk factor modification. History/Risk Factors: HLD AFIB DVT Hypertension Procedure Access obtained in the right Femoral artery by percutaneous puncture Complications: None, None Contrast: Isovue 64ml Closure Device: MynxGrip Hemodynamics: Pressures Site Systolic/ A Wave Diastolic/ V Wave End Diastolic/ Mean HR AO 126 93 110 70 AO 132 108 121 83 LV 136 -7 7 84 LV 140 -6 39 70 AO 129 83 106 78 LV Ventriculography Ejection Method: LV Gram Ejection Fraction: 50% Wall Motion: WEIR Anterobasal Normal Anterolateral Normal Apical: Normal Inferoapical Normal Inferobasal Normal Coronary Dominance: Co-dominant Lesion Findings/Interventions * Left Main Coronary Artery The LMCA has diffuse 30-40% stenosis * Left Anterior Descending There is a 40% stenosis in the Proximal LAD. There is a 20% stenosis in the Mid LAD. * Circumflex There is a 20% stenosis in the 1st Marginal. There is a Left PDA has 40% stenosis * Right Coronary Artery There is a 50% stenosis in the Ostial-Proximal RCA with small aneurysmal portion in the proximal RCA 40% stenosis in the R PDA Updated by Sudarshan Foster RT (R) on 12/18/2016 11:11:52 AM Marcio Andre MD, FACC electronically signed on 12/18/2016 12:58:27 PM with status of Final
[2016-12-18] MEDS: *HR* Heparin 5,000 UNIT/ML VIAL SQ SCH (16:16)
[2016-12-18] MEDS: Isosorbide MONOnitrate (24 HR) 30 MG TAB.ER.24H PO SCH (16:16)
[2016-12-19 05:09] LABS: Basophils # 0.1 K/mcL (0.0-0.2); Basophils % 0.8 %; Eosinophils # 0.3 K/mcL (0.0-0.6); Eosinophils % 3.2 %; Hematocrit 45.3 % (37.5-50.1); Hemoglobin 14.6 g/dL (12.9-16.9); Immature Granulocytes % 0.4 % (0-4); Lymphocytes # 2.2 K/mcL (0.6-4.6); Lymphocytes % 25.8 %; Mean Corpuscular HGB Conc 32.2 g/dL (31.6-35.5); Mean Corpuscular Hemoglobin 28.5 pg (28.0-33.3); Mean Corpuscular Volume 88.5 fL (83.0-100.0); Mean Platelet Volume 9.4 fL (9.4-12.4); Monocytes # 0.5 K/mcL (0.0-1.3); Monocytes % 5.9 %; Neutrophils # 5.4 K/mcL (1.6-8.9); Platelet Count 187 K/mcL (140-400); Red Blood Count 5.12 M/mcL (4.19-5.50); Red Cell Distribution Width 13.3 % (11.5-14.5); Segmented Neutrophils % 63.9 %
[2016-12-19 05:24] LABS: BUN/Creatinine Ratio 11 (6-26); Blood Urea Nitrogen 13 mg/dL (8-26); Calcium 8.9 mg/dL (8.6-10.8); Carbon Dioxide 32 mEq/L (19-29); Chloride 106 mEq/L (98-109); Glucose 131 mg/dL (70-99); Osmolality,Calculated 290 (280-300); Phosphorous 3.2 mg/dL (2.3-4.7); Potassium 4.3 mEq/L (3.5-4.5); Sodium 139 mEq/L (136-145); eGFR For African Americans > 60 (> 60); eGFR For Non-African Americans > 60 (> 60)
[2016-12-19] MEDS: *HR* Heparin 5,000 UNIT/ML VIAL SQ SCH (05:50)
[2016-12-19 07:40] VITALS: BP 114/89
[2016-12-19] MEDS ORDERED: Isosorbide MONOnitrate (24 HR) 30 MG TAB.ER.24H PO SCH (09:00)
[2016-12-19] MEDS: Pantoprazole 40 MG VIAL IVP SCH (10:01)
[2016-12-19] MEDS: Aspirin Enteric Coated 81 MG Tablet PO SCH (10:01)
[2016-12-19] MEDS: Isosorbide MONOnitrate (24 HR) 30 MG TAB.ER.24H PO SCH (10:01)
--- NOTE | 2016-12-19 10:02 | Discharge Summary ---
Date of Encounter: 12/19/16 Time of Encounter: 09:59 - Discharge Diagnosis (1) Unstable angina pectoris Priority: Primary Status: Acute (2) Essential hypertension Priority: Secondary Status: Chronic (3) Atrial fibrillation Priority: Secondary Status: Chronic Qualifiers: Atrial fibrillation type: unspecified Qualified Code(s): I48.91 - Unspecified atrial fibrillation (4) HLD (hyperlipidemia) Priority: Secondary Status: Chronic Qualifiers: Hyperlipidemia type: pure hypercholesterolemia Qualified Code(s): E78.00 - Pure hypercholesterolemia, unspecified; E78.0 - Pure hypercholesterolemia (5) DVT prophylaxis Priority: Secondary Status: Acute - Discharge Medications Prescriptions: Aspirin Enteric Coated [Aspirin EC] 81 mg PO DAILY #30 Atorvastatin [Lipitor] 40 mg PO HS #30 tab Isosorbide MONOnitrate (24 HR) [Imdur] 30 mg PO DAILY #30 Home Medications: Lisinopril [Zestril] 5 mg PO DAILY #30 tablet 11/03/16 [Rx] Metoprolol [Lopressor] 25 mg PO BID #60 tablet 11/03/16 [Rx] Atorvastatin [Lipitor] 40 mg PO HS 12/17/16 [History] Aspirin Enteric Coated [Aspirin EC] 81 mg PO DAILY #30 12/19/16 [Rx] Atorvastatin [Lipitor] 40 mg PO HS #30 tab 12/19/16 [Rx] Isosorbide MONOnitrate (24 HR) [Imdur] 30 mg PO DAILY #30 12/19/16 [Rx] Allergies/Adverse Reactions: Allergies No Known Allergies Allergy (Verified 05/29/16 17:00) Procedures/tests Complete & Pending: Procedures Performed prior 72 hours Category Date Time Status CL Cardiac Catheterization [CL] Routine Systems Software Designer 12/18/16 10:04 Completed Date of admission: 12/17/16 14:07 Primary care physician: PCP NO Consults: Cardiology: Dr. Tai Discharging clinician: Gretchen Colon Anticipated date of discharge: 12/19/16 - Patient Status Disposition: Home, Self-Care Condition: Good Functional capacity at discharge: independent ambulation Overall status at discharge: patient is back to baseline - Discharge Instructions Follow Up With: NO,PCP [Primary Care Provider] - Additional Instructions: Please follow up with your primary care physician within five days after your discharge from the hospital. Please follow up with your smoking pipe maker within one week after your discharge from the hospital. Aspirin, Lipitor, and Imdur have been added to your home medication list. Please take these medications as prescribed. Closely monitor your blood pressure at home. Hold Metoprolol if your systolic blood pressure is less than 100 or HR less than 50. Hold Lisinopril if your systolic blood pressure is less than 100. Please inform your smoking pipe maker and primary care physician of these blood pressure readings at home. Please resume all your other home medications as prescribed by your primary care physician. - Diet and Activity Activity: resume usual activities as tolerated Diet: low salt diet Hospital course: Mr. Bowden is a 56 year old male with PMH of afib who was admitted for management of unstable angina. He was followed by cardiology and underwent LHC. LHC revealed moderated CAD and Aspirin, Imdur, lipitor were added to the regimen. Patient remained chest pain free and tolerated the addition of imdur appropriately. At this time he is hemodynamically stable and will be discharged to home with follow up with PCP and cardiology. pateint and his demonstrate understanding of the diagnosis and agree with the discharge care and plan. - Time Spent with Patient Total time spent providing and/or coordinating discharge services: Less than 30 minutes - Constitutional Vitals: Temp Pulse Resp BP Pulse Ox 98.2 F 60 16 114/89 93 12/19/16 07:37 12/19/16 07:37 12/19/16 07:37 12/19/16 07:37 12/19/16 07:37 General appearance: Present: cooperative, A&O X 3, pleasant, no acute distress, obese, answers questions appropriately - Head Head exam: Present: atraumatic, normocephalic - Eye Eye exam: Present: normal appearance, conjuntiva pink, sclera anicteric - Respiratory Respiratory exam: Present: CTAB. Absent: accessory muscle use, rales, rhonchi, wheezes - Cardiovascular Cardiovascular exam: Present: irregular rhythm, +S1, +S2. Absent: diastolic murmur, systolic murmur - GI/Abdominal GI/Abdominal exam: Present: normal bowel sounds, soft, no peritoneal signs. Absent: distended, tenderness - Extremities Exam Extremities exam: Present: warm, radial pulses palpable and symetrical. Absent : calf tenderness, cyanotic, pedal edema - Neurological Exam Neurological exam: Present: alert, oriented X3 - Psychiatric Psychiatric exam: Present: normal affect, normal mood
== END 2016-12-19 13:30 | disposition home or self-care (01) ==
LOC: EMEROO 11:12 → 3BNU 11:12 → 2NENU 14:56
PROVIDERS: ADMIT Internal Medicine; ATTEND Registered Nurse

== ENCOUNTER 2017-01-16 18:08 | Inpatient (IN) ==
[2017-01-16] MEDS ORDERED: 0.9 % Sodium Chloride 500 ML IVC ONE (18:18)
--- NOTE | 2017-01-16 18:22 | Emergency Department Note ---
Disposition Clinical Impression: Chest pain Disposition: Still a Patient Referrals: NONE,PCP [Primary Care Provider] - Forms: ED Satisfaction Letter Chest Pain HPI - General Chief Complaint: ED Chest Pain Stated Complaint: CP/TOVA Time Seen by Provider: 01/16/17 18:13 Source: patient, family Mode of arrival: ambulatory Limitations: no limitations Vital Signs Reviewed: Yes Nursing Notes Reviewed: Yes - History of Present Illness HPI Narrative: Patient presents to the ED if the chief complaint of chest pain and shortness of breath. Patient reports that 2 hours ago. He was just getting off work, when he had the acute onset of chest discomfort. Describes it as sharp pleuritic and is now radiating down his left arm. Also became very short of breath with this. States that this feels very similar to his previous [place], which required stents. He also has a history of A. fib and is on Coumadin. Denies any diaphoresis, nausea, vomiting, pain or swelling in his legs. No history of PE or DVT. Severity scale (1-10): 8 - Related Data Home Medications Medication Instructions Recorded Confirmed Atorvastatin [Lipitor] 40 mg PO HS 12/17/16 12/17/16 Previous Rx's Medication Instructions Recorded Lisinopril [Zestril] 5 mg PO DAILY #30 tablet 11/03/16 Metoprolol [Lopressor] 25 mg PO BID #60 tablet 11/03/16 Aspirin Enteric Coated [Aspirin EC] 81 mg PO DAILY #30 12/19/16 Atorvastatin [Lipitor] 40 mg PO HS #30 tab 12/19/16 Isosorbide MONOnitrate (24 HR) 30 mg PO DAILY #30 12/19/16 [Imdur] Allergies Allergy/AdvReac Type Severity Reaction Status Date / Time No Known Allergies Allergy Verified 05/29/16 17:00 All systems ED: reviewed and negative except as stated. Constitutional: Denies: fever Cardiovascular: Reports: chest pain, dyspnea on exertion. Denies: palpitations Respiratory: Reports: dyspnea. Denies: cough, sputum production Gastrointestinal: Denies: nausea, vomiting Chest Pain PMH - Past Medical History Medical history: Reports: atrial fibrillation, hyperlipidemia, hypertension Surgical history: Reports: orthopedic, other (right femur ORIF), other Psychiatric history: Reports: no psych history - Social History Smoking Status: Former smoker Alcohol use: Reports: none Drug use: Reports: none Physical Exam - General Limitations: no limitations General appearance: alert, in no apparent distress, other (ill but non-toxic) - Head Head exam: atraumatic, normocephalic, normal inspection - Eye Eye exam: Present: normal appearance, PERRL, EOMI - ENT ENT exam: normal exam, normal oropharynx, mucous membranes moist - Neck Neck exam: Present: normal inspection, full ROM, trachea midline - Chest Chest inspection: Present: normal inspection, symmetric chest wall rise - Respiratory Respiratory exam: Present: normal lung sounds bilaterally - Cardiovascular Cardiovascular exam: Present: regular rate, irregular rhythm, normal heart sounds. Absent: normal rhythm - Abdominal Exam Abdominal exam: Present: soft, Non-Tender. Absent: tenderness, distention, guarding, rebound, rigidity - Extremities Exam Extremities exam: Present: normal inspection, full ROM. Absent: tenderness, pedal edema Course Course Narrative: 56-year-old male with known coronary artery disease and A. fib presenting with chest pain or shortness of breath. Cardiac workup initiated will be signed out to the nighttime team with Dr. Rod. Vital Signs Temperature 98.7 F 01/16/17 18:12 Pulse Rate 88 01/16/17 18:12 Respiratory Rate 22 01/16/17 18:12 Blood Pressure 126/79 01/16/17 18:12 O2 Sat by Pulse Oximetry 97 01/16/17 18:12 Temperature 98.7 F 01/16/17 18:12 Pulse Rate 88 01/16/17 18:12 Respiratory Rate 22 01/16/17 18:12 Blood Pressure 126/79 01/16/17 18:12 O2 Sat by Pulse Oximetry 97 01/16/17 18:12 Oxygen Delivery Oxygen Delivery Room Air
[2017-01-16] MEDS: Nitroglycerin 0.4 MG TAB.SUBL SL PRN ×3 (18:25→18:55)
--- NOTE | 2017-01-16 18:34 | Emergency Department Note ---
START Narrative - START START: I examined this patient and my medical decision-making was reviewed with the Resident Physician. I agree with the documented findings, disposition and treatment plan as described except to the extent set forth below. 56-year-old male presents to the emergency room for chest pain shortness of breath. Patient has a long history of atrial fibrillation. He states this started a few hours ago. He takes Coumadin for his A. fib. No other complaints at this time. Workup for cardiac and lung issue.
[2017-01-16 18:49] LABS: Basophils # 0.1 K/mcL (0.0-0.2); Basophils % 0.7 %; Eosinophils # 0.3 K/mcL (0.0-0.6); Eosinophils % 4.4 %; Hematocrit 39.9 % (37.5-50.1); Hemoglobin 13.5 g/dL (12.9-16.9); Immature Granulocytes % 0.4 % (0-4); Immature Platelets 1.7 % (1.1-6.1); Lymphocytes # 2.3 K/mcL (0.6-4.6); Lymphocytes % 33.7 %; Mean Corpuscular HGB Conc 33.8 g/dL (31.6-35.5); Mean Corpuscular Hemoglobin 29.2 pg (28.0-33.3); Mean Corpuscular Volume 86.2 fL (83.0-100.0); Mean Platelet Volume 9.1 fL (9.4-12.4); Monocytes # 0.5 K/mcL (0.0-1.3); Monocytes % 7.6 %; Neutrophils # 3.6 K/mcL (1.6-8.9); Platelet Count 207 K/mcL (140-400); Red Blood Count 4.63 M/mcL (4.19-5.50); Red Cell Distribution Width 13.2 % (11.5-14.5); Segmented Neutrophils % 53.2 %
[2017-01-16 18:58] LABS: INR 1.6
[2017-01-16 19:01] LABS: Activated Partial Thrombo Time 35.8 Seconds (26.0-36.0); BUN/Creatinine Ratio 22 (6-26); Blood Urea Nitrogen 19 mg/dL (8-26); Calcium 8.7 mg/dL (8.6-10.8); Carbon Dioxide 22 mEq/L (19-29); Chloride 109 mEq/L (98-109); Glucose 123 mg/dL (70-99); Osmolality,Calculated 294 (280-300); Potassium 3.4 mEq/L (3.5-4.5); Sodium 140 mEq/L (136-145); eGFR For African Americans > 60 (> 60); eGFR For Non-African Americans > 60 (> 60)
--- NOTE | 2017-01-16 19:56 | Emergency Department Note ---
Disposition Clinical Impression: Chest pain Disposition: Still a Patient General Adult HPI - General Chief complaint: ED Chest Pain Stated complaint: CP/TOVA Time Seen by Provider: 01/16/17 18:13 Source: patient, family Mode of arrival: ambulatory Limitations: no limitations Nursing Notes Reviewed: Yes Vital Signs Reviewed: Yes - History of Present Illness Pain Scale: 2 - Related Data Home Medications Medication Instructions Recorded Confirmed Atorvastatin [Lipitor] 40 mg PO HS 12/17/16 12/17/16 Previous Rx's Medication Instructions Recorded Lisinopril [Zestril] 5 mg PO DAILY #30 tablet 11/03/16 Metoprolol [Lopressor] 25 mg PO BID #60 tablet 11/03/16 Aspirin Enteric Coated [Aspirin EC] 81 mg PO DAILY #30 12/19/16 Atorvastatin [Lipitor] 40 mg PO HS #30 tab 12/19/16 Isosorbide MONOnitrate (24 HR) 30 mg PO DAILY #30 12/19/16 [Imdur] Allergies Allergy/AdvReac Type Severity Reaction Status Date / Time No Known Allergies Allergy Verified 05/29/16 17:00 Constitutional: Denies: fever Cardiovascular: Reports: chest pain, dyspnea on exertion. Denies: palpitations Respiratory: Reports: dyspnea. Denies: cough, sputum production Gastrointestinal: Denies: nausea, vomiting Past Medical History - Past Medical History Attestation: Yes The following information was validated with the patient. Medical history: Reports: atrial fibrillation, hyperlipidemia, hypertension Surgical history: Reports: orthopedic, other (right femur ORIF), other Psychiatric history: Reports: no psych history - Social History Smoking Status: Former smoker Smokeless Tobacco Status: No Alcohol use: Reports: none Drug use: Reports: none Physical Exam - General Limitations: no limitations General appearance: alert, in no apparent distress, other (ill but non-toxic) - Head Head exam: atraumatic, normocephalic, normal inspection - Eye Eye exam: Present: normal appearance, PERRL, EOMI - ENT ENT exam: normal exam, normal oropharynx, mucous membranes moist - Neck Neck exam: Present: normal inspection, full ROM, trachea midline - Chest Chest inspection: Present: normal inspection, symmetric chest wall rise - Respiratory Respiratory exam: Present: normal lung sounds bilaterally. Absent: respiratory distress - Cardiovascular Cardiovascular exam: Present: regular rate, normal rhythm, normal heart sounds - Abdominal Exam Abdominal exam: Present: soft, Non-Tender. Absent: tenderness, distention, guarding, rebound, rigidity, normal bowel sounds, organomegaly - Extremities Exam Extremities exam: Present: normal inspection, full ROM. Absent: tenderness, pedal edema - Back Exam Back exam: Present: normal inspection, full ROM. Absent: tenderness, CVA tenderness (R), CVA tenderness (L) - Neurological Exam Neurological exam: Present: alert, oriented X3 - Psychiatric Psychiatric exam: Present: normal affect, normal mood - Skin Skin exam: Present: warm, dry, intact, normal color. Absent: rash, cyanosis, diaphoresis, erythema Course Course Narrative: Male patient signed out by darby. He was resting at home whenever he started having left-sided chest pain radiates down his left arm. Relieved with 3 nitroglycerin. States his back around 1 at this time. Lab workup has been basically unremarkable. No EKG changes or ischemia noted on EKG. He is in atrial fibrillation he has a history of this. We will admit patient to the hospital for ACS. He is agreeable to this. Does not appear to be in any distress on my exam. We will provide him with aspirin at this time. Vital Signs Temperature 98.7 F 01/16/17 18:12 Pulse Rate 88 01/16/17 18:12 Respiratory Rate 22 01/16/17 18:12 Blood Pressure 126/79 01/16/17 18:12 O2 Sat by Pulse Oximetry 97 01/16/17 18:12 Temperature 98.7 F 01/16/17 18:12 Pulse Rate 90 01/16/17 20:16 Respiratory Rate 16 01/16/17 20:16 Blood Pressure 126/82 01/16/17 20:16 O2 Sat by Pulse Oximetry 97 01/16/17 20:16 Oxygen Delivery Oxygen Delivery Nasal Cannula Medical Decision Making - Medical Records Medical records reviewed: Yes I reviewed the patient's medical records. - Lab Data Lab results reviewed: Yes I reviewed the patient's lab results. Result diagrams: 01/16/17 18:40 01/16/17 18:40 Lab Results 01/16/17 01/16/17 01/16/17 Range/Units 18:40 18:40 18:40 WBC 6.8 (4.3-11.1) K/mcL RBC 4.63 (4.19-5.50) M/mcL Hgb 13.5 (12.9-16.9) g/dL Hct 39.9 (37.5-50.1) % MCV 86.2 (83.0-100.0) fL MCH 29.2 (28.0-33.3) pg MCHC 33.8 (31.6-35.5) g/dL RDW 13.2 (11.5-14.5) % Plt Count 207 (140-400) K/mcL MPV 9.1 L (9.4-12.4) fL Immature Gran % 0.4 (0-4) % Seg Neutrophils % 53.2 % Lymphocytes % 33.7 % Monocytes % 7.6 % Eosinophils % 4.4 % Basophils % 0.7 % Neutrophils # 3.6 (1.6-8.9) K/mcL Lymphocytes # 2.3 (0.6-4.6) K/mcL Monocytes # 0.5 (0.0-1.3) K/mcL Eosinophils # 0.3 (0.0-0.6) K/mcL Basophils # 0.1 (0.0-0.2) K/mcL Immature Plt Fraction 1.7 (1.1-6.1) % PT 17.0 H (9.4-12.1) Seconds INR 1.6 APTT 35.8 (26.0-36.0) Seconds Sodium (136-145) mEq/L Potassium (3.5-4.5) mEq/L Chloride (98-109) mEq/L Carbon Dioxide (19-29) mEq/L BUN (8-26) mg/dL Creatinine (0.72-1.25) mg/dL Est GFR ( Amer) (> 60) Est GFR (Non-Af Amer) (> 60) BUN/Creatinine Ratio (6-26) Glucose (70-99) mg/dL Calculated Osmolality (280-300) Calcium (8.6-10.8) mg/dL Troponin I (0-0.03) ng/mL B-Natriuretic Peptide 142 H (0-100) pg/mL 01/16/17 01/16/17 Range/Units 18:40 18:40 WBC (4.3-11.1) K/mcL RBC (4.19-5.50) M/mcL Hgb (12.9-16.9) g/dL Hct (37.5-50.1) % MCV (83.0-100.0) fL MCH (28.0-33.3) pg MCHC (31.6-35.5) g/dL RDW (11.5-14.5) % Plt Count (140-400) K/mcL MPV (9.4-12.4) fL Immature Gran % (0-4) % Seg Neutrophils % % Lymphocytes % % Monocytes % % Eosinophils % % Basophils % % Neutrophils # (1.6-8.9) K/mcL Lymphocytes # (0.6-4.6) K/mcL Monocytes # (0.0-1.3) K/mcL Eosinophils # (0.0-0.6) K/mcL Basophils # (0.0-0.2) K/mcL Immature Plt Fraction (1.1-6.1) % PT (9.4-12.1) Seconds INR APTT (26.0-36.0) Seconds Sodium 140 (136-145) mEq/L Potassium 3.4 L (3.5-4.5) mEq/L Chloride 109 (98-109) mEq/L Carbon Dioxide 22 (19-29) mEq/L BUN 19 (8-26) mg/dL Creatinine 0.87 (0.72-1.25) mg/dL Est GFR ( Amer) > 60 (> 60) Est GFR (Non-Af Amer) > 60 (> 60) BUN/Creatinine Ratio 22 (6-26) Glucose 123 H (70-99) mg/dL Calculated Osmolality 294 (280-300) Calcium 8.7 (8.6-10.8) mg/dL Troponin I 0.01 (0-0.03) ng/mL B-Natriuretic Peptide (0-100) pg/mL - Radiology Data Radiology results reviewed: Yes I reviewed the patient's radiology results. Chest X-Ray 01/16/17 18:18 IMPRESSION: 1. No acute abnormality. D/ / Moises Redding MD / Moises Redding MD Interpreting Provider: Moises Redding MD - EKG Data EKG #1 EKG attestation: Yes I reviewed and interpreted this EKG. EKG results narrative: Atrial fibrillation at a rate of 93. QRS duration is 106. QT is 355 QTC is 406 no signs of acute ischemia. No previous EKG changes from EKG dated 2016. Attestation Statement - Attestation Attestation: I, Ben Rod MD, personally evaluated this patient and discussed their management with the resident physician. I reviewed the resident's note and agree with the documented findings, medical decision making, and plan of care. This patient was signed out at shift change from Dr. Moore and Dr. Underwood. Please refer to their notes for complete details of history and physical examination. Patient is a 56-year-old male who presented with a complaint of some left-sided chest pain which radiated to the left shoulder. The pain started about p.m. today while he was getting in a chair resting. He describes the pain as sharp. He rated the pain a 9 out of 10. He did become profusely diaphoretic and short of breath with the episode. The pain lasted more than an hour and was relieved with 3 nitroglycerin after he arrived here in the emergency department. Patient had a similar episode about a month ago and was admitted here and had a cardiac catheterization. He reports that showed about a 50% blockage that he did not receive any stents. He was also diagnosed with atrial fibrillation at that time and is on Coumadin. On examination patient is a well-developed well-nourished male in no acute distress. He is alert and oriented 3. There is no cyanosis or diaphoresis. Chest is nontender to palpation. Breath sounds are clear and equal bilaterally. Heart is irregularly irregular with a normal rate. Abdomen is soft and nontender with normal bowel sounds. No pedal edema. No gross focal neurological deficits. Labs reviewed. Troponin normal. EKG shows atrial fibrillation with a heart rate of 93. Otherwise no acute changes. Chest x-ray negative. The hospitalist, Dr. Abarca, was consulted and accepted admission the patient.
[2017-01-16] MEDS ORDERED: Aspirin 81 MG TAB.CHEW PO STA (20:09)
[2017-01-16] MEDS ORDERED: *HR* Heparin 5,000 UNIT/ML VIAL IVP ONE (23:18)
[2017-01-16] MEDS ORDERED: *HR* Heparin 5,000 UNIT/ML VIAL IVP PRN ×2 (23:18)
--- NOTE | 2017-01-16 23:20 | Internal Med History&Physical ---
<Ashley Wood - Last Filed: 01/17/17 02:34> Date of Encounter: 01/16/17 Time of Encounter: 22:00 Assessment and Plan (1) Unstable angina pectoris Current visit: No Status: Suspected - Sharp left-sided chest pain at rest, similar to prior chest pain before [facility], raises the concern of unstable angina. - Negative first troponin and EKG showed no significant ischemic change compared to prior EKG. - Continue to trend troponin. - Continue aspirin, beta-shila, statin and nitroglycerin. - Start low dose heparin drip for the concern of unstable angina. - Will consult cardiology and appreciate further evaluation and recommendation. - Admit to hospital for close monitoring with telemetry and heparin drip. Total time spent on admission: 40 minutes. (2) CAD (coronary artery disease) Current visit: Yes Status: Chronic - LHC on 12/18/16 found moderate CAD. - Continue aspirin, beta-shila, statin and nitroglycerin. Qualifiers: Coronary Disease-Associated Artery/Lesion type: [place] artery [place] vs. transplanted heart: [place] heart Associated angina: angina presence unspecified Qualified Code(s): I25.10 - Atherosclerotic heart disease of [place] coronary artery without angina pectoris (3) Subtherapeutic international normalized ratio (INR) Current visit: Yes Status: Acute - INR 1.6 on admission. - On Coumadin for A-fib. Therapeutic INR goal is between 2 and 3. - Patient reports on Coumadin 5 mg PO daily for 3 weeks but recently told by PCP to increase to 6 mg daily. - Will start Coumadin dosing per pharmacy. - Given patient will be started on low-dose heparin drip for concern of unstable angina, that also serve as bridging for anticoagulation. (4) Atrial fibrillation Current visit: No Status: Chronic - [id number] score = 2 (HTN & vascular disease history). - Currently rate-controlled. - On metoprolol for rate control. - On Coumadin for anticoagulation. Qualifiers: Atrial fibrillation type: unspecified Qualified Code(s): I48.91 - Unspecified atrial fibrillation (5) Essential hypertension Current visit: No Status: Chronic - Continue home antihypertensive regimen. (6) HLD (hyperlipidemia) Current visit: No Status: Chronic - Continue statin. Qualifiers: Hyperlipidemia type: pure hypercholesterolemia Qualified Code(s): E78.00 - Pure hypercholesterolemia, unspecified; E78.0 - Pure hypercholesterolemia Internal Medicine - H&P: HPI Chief complaint: Chest pain Admitted From: Emergency Dept Plans for Post Hospital Care: Home History of present illness: Mr. Bowden is a 56 year old male with A-fib on Coumadin, HTN, HLD and moderate CAD per [facility] on 12/18/16, no stent placed. Patient presented with complaint of chest pain radiating to left shoulder. It happened at rest and lasted for one hour and half. Patient describes it as sharp constant pain similar to the chest pain he had before [facility]. It's alleviated by nitroglycerin. It's associated with shortness of breath and diaphoresis. Patient denies lightheadedness, syncope, palpitation, edema, nausea, vomiting. Patient denies chest pain at this time. Patient is full code. In ED, patient has negative troponin and EKG showed no significant ischemic change compared to prior EKG from 12/17/16. Patient received aspirin and 500 mL IV NS bolus in ED. Past Med Surg Social Fam HX - Past Medical History Medical history: atrial fibrillation, hyperlipidemia, hypertension Psychiatric history: no psych history - Past Surgical History Surgical History: orthopedic, other (Right femur surgery), other ([facility] on but no stent placed.) - Social History Smoking Status: Former smoker Smokeless Tobacco Status: No Alcohol use: none Drug use: none - Family History Brother Living Status: Still Living Hx Family Cardiac Disorders: Yes ([place], HD) Hx Family Cancer: Yes Father Adopted: No Family Member Ethnicity: Non- Living Status: Hx Family Cardiac Disorders: No Hx Family Respiratory Disorders: No Hx Family Cancer: Yes (Non Hodgkins lymphoma) Hx Family GI Disorders: No Hx Family Endocrine Disorder: No Hx Family Neuromuscular Disorders: No Hx Family Neurologic Disorders: No Hx Family HEENT Disorders: No Hx Family Autoimmune Disorders: No Mother Adopted: No Family Member Ethnicity: Non- Living Status: Hx Family Cardiac Disorders: Yes ([place], HD) Hx Family Respiratory Disorders: No Hx Family Cancer: Yes Hx Family GI Disorders: No Hx Family Endocrine Disorder: Yes (Goiter) Hx Family Neuromuscular Disorders: No Hx Family Neurologic Disorders: No Hx Family HEENT Disorders: Yes (GOiter, glaucoma) Hx Family Autoimmune Disorders: No Sister Living Status: Still Living Hx Family Cardiac Disorders: Yes (HTN) Hx Family Cancer: Yes (Renal) Internal Medicine - H&P: Meds Metoprolol [Lopressor] 25 mg PO BID #60 tablet 11/03/16 [Rx] Atorvastatin [Lipitor] 40 mg PO HS 12/17/16 [History] Aspirin Enteric Coated [Aspirin EC] 81 mg PO DAILY #30 12/19/16 [Rx] Isosorbide MONOnitrate (24 HR) [Imdur] 30 mg PO DAILY #30 12/19/16 [Rx] Lisinopril [Zestril] 10 mg PO DAILY 01/16/17 [History] Warfarin [Coumadin] 5 mg PO 1800 01/16/17 [History] 3 Allergy/AdvReac Type Severity Reaction Status Date / Time No Known Allergies Allergy Verified 01/17/17 11:59 All Systems PM: A 10-system review of systems was performed and is negative for pertinent findings except as documented above in the HPI. - Constitutional Constitutional: chills, no anorexia, no fever(s) - EENT Eyes: no change in vision Ears: no decreased hearing Nose, mouth and throat: no dysphagia, no odynophagia - Cardiovascular Cardiovascular ROS IM: as per HPI, chest pain, diaphoresis, no edema, no lightheadedness, no syncope - Respiratory Respiratory: dyspnea, no cough, no hemoptysis - Gastrointestinal Gastrointestinal: no abdominal pain, no diarrhea, no hematochezia, no melena, no nausea, no vomiting - Genitourinary Genitourinary ROS male: no difficulty urinating, no dysuria, no hematuria - Musculoskeletal Musculoskeletal ROS IM: no arthralgias, no myalgias - Integumentary Integumentary IM: no pruritus, no rash - Neurological Neurological ROS: no focal weakness, no numbness, no tingling - Hematologic/Lymphatic Hematologic/Lymphatic: no easy bleeding, no easy bruising - Constitutional Vitals: Temp Pulse Resp BP Pulse Ox 98.2 F 71 18 129/73 96 01/16/17 22:27 01/16/17 22:27 01/16/17 22:27 01/16/17 22:27 01/16/17 22:27 General appearance: Present: cooperative, A&O X 3, no acute distress, answers questions appropriately - Head Head exam: Present: atraumatic, normocephalic - Eye Eye exam: Present: EOMI, PERRL, conjuntiva pink, sclera anicteric - Neck Neck exam general surgery: Present: supple, trachea midline. Absent: lymphadenopathy - Respiratory Respiratory exam: Present: CTAB. Absent: accessory muscle use, rales, rhonchi, wheezes - Cardiovascular Cardiovascular exam: Present: RRR, +S1, +S2. Absent: diastolic murmur, gallop, rubs, systolic murmur - GI/Abdominal GI/Abdominal exam: Present: normal bowel sounds, soft, no peritoneal signs. Absent: distended, tenderness - Extremities Exam Extremities exam: Present: warm, radial pulses palpable and symmetrical. Absent : calf tenderness, cyanotic, pedal edema - Neurological Exam Neurological exam: Present: CN II-XII intact, oriented X3, no focal deficits. Absent: pronater drift, facial droop, speech deficit - Skin Skin exam: Present: dry, intact, warm Internal Med - H&P Results - Labs CBC & Chem 7: 01/16/17 18:40 01/17/17 00:58 <Yoni Abarca - Last Filed: 01/17/17 20:05> Date of Encounter: 01/16/17 Internal Medicine - H&P: HPI History of present illness: Mr. Bowden is a 56 year old male All Systems PM: A 10-system review of systems was performed and is negative for pertinent findings except as documented above in the HPI. - Constitutional Vitals: Temp Pulse Resp BP Pulse Ox 98.4 F 76 16 126/88 95 01/17/17 18:57 01/17/17 18:57 01/17/17 18:57 01/17/17 18:57 01/17/17 18:57 Internal Med - H&P Results - Labs CBC & Chem 7: 01/16/17 18:40 01/17/17 00:58 Labs: BMP 01/17/17 00:58 Sodium 139 Potassium 3.4 L Chloride 108 Carbon Dioxide 24 BUN 22 Creatinine 0.85 Glucose 131 H Calcium 8.5 L Cardiac Enzymes 01/17/17 01/17/17 Range/Units 00:58 06:05 Troponin I 0.00 0.00 (0-0.03) ng/mL - Attending Attestation DOS: I examined this patient and my medical decision-making was reviewed with the Resident Physician, Dr Wood. I agree with the documented findings, disposition and treatment plan as described except to the extent set forth below. My findings are summarized below: Patient presented with L sided chest pain. PE: heart - RRR S1S2 no murmur Plan: heart monitor, trend troponin, NPO, heparin drip, cardiology consult.
[2017-01-16] MEDS ORDERED: Heparin 25,000 UNIT/500 ML D5W 25,000 UNIT/500 ML MLS IVC SCH (23:30)
--- NOTE | 2017-01-16 23:42 | Event Note ---
Date of Encounter: 01/16/17 Time of Encounter: 23:39 I examined this patient and my medical decision-making was reviewed with the Resident Physician, Dr. Ashley Wood. I agree with the documented findings, disposition and treatment plan as described except to the extent set forth below. I have independently obtained history and examined the patient and my findings are summarized below: Patient came to the hospital with substernal chest pain which occurred at rest and improve with nitroglycerin. Currently he reports being chest pain free. On exam he is in no acute distress. Heart is irregularly irregular S1-S2. No murmurs. Lungs are clear. EKG shows atrial fibrillation with no ST changes Assessment: Unstable angina in a patient with moderate CAD demonstrated by cardiac catheterization Plan: Start heparin drip per ACS protocol. Trend troponin. Monitor on telemetry. Consult cardiology Subtherapeutic on Coumadin for A. fib: Continue with warfarin dosing per pharmacy. Bridging with IV heparin until INR becomes therapeutic. Warfarin to be held at the discretion of the cardiology service if the patient rules in and intervention as planned.
[2017-01-17 01:14] LABS: INR 1.6; Prothrombin Time 17.3 Seconds (9.4-12.1)
[2017-01-17 01:25] LABS: BUN/Creatinine Ratio 26 (6-26); Blood Urea Nitrogen 22 mg/dL (8-26); Calcium 8.5 mg/dL (8.6-10.8); Carbon Dioxide 24 mEq/L (19-29); Chloride 108 mEq/L (98-109); Glucose 131 mg/dL (70-99); Osmolality,Calculated 293 (280-300); Potassium 3.4 mEq/L (3.5-4.5); Sodium 139 mEq/L (136-145); eGFR For African Americans > 60 (> 60); eGFR For Non-African Americans > 60 (> 60)
[2017-01-17] MEDS ORDERED: *HR* Warfarin 3 MG TABLET PO STA (06:19)
--- NOTE | 2017-01-17 12:26 | Cardiology Consult Note ---
<Maged Kaur - Last Filed: 01/17/17 12:20> Date of Encounter: 01/17/17 Time of Encounter: 10:15 Assessment and Plan (1) Chest pain Current Visit: Yes Status: Acute Troponin negative x 3. EKG shows atrial fibrillation, no acute changes. Typical chest pain symptoms. [facility] 12/18/16 showed moderate non-obstructive CAD as described in HPI. Discussed with Dr. Lowry, recommend stress test in the morning. WIll consider re -peat [facility] with FFR to right ostial 50% stenosis. NPO after midnight. Ok to stop heparin gtt. Qualifiers: Chest pain type: unspecified Qualified Code(s): R07.9 - Chest pain, unspecified (2) Atrial fibrillation Current Visit: No Status: Chronic Diagnosed with atrial fibrillation in October. Started on coumadin therapy last month for increase in CHADS VASc score with new diagnosis of CAD. Planning to follow with coumadin clinic on wednesday. Qualifiers: Atrial fibrillation type: unspecified Qualified Code(s): I48.91 - Unspecified atrial fibrillation (3) CAD (coronary artery disease) Current Visit: Yes Status: Chronic Recently diagnosed moderate non-obstructive CAD. Continue asa, statin, bb. Qualifiers: Coronary Disease-Associated Artery/Lesion type: [place] artery [place] vs. transplanted heart: [place] heart Associated angina: angina presence unspecified Qualified Code(s): I25.10 - Atherosclerotic heart disease of [place] coronary artery without angina pectoris Discussion w patient/family: The assessment and plan as outlined above was discussed with the patient and/or family members who expressed understanding and agreement. All questions were answered. Thank you for involving us in the care of your patient. Please call with any questions. History of Present Illness Consult date: 01/17/17 Requesting physician: Yoni Abarca Consult reason: Chest pain s/p recent [facility] Chief complaint: Chest pain History of present illness: Mr. Bowden is a 56 year old male with a history of recently diagnosed moderate non-obstructive CAD diagnosed one month ago, HTN, HLD, and tobacco use who presented with recurrent chest pain. C/o left chest pain radiating to his shoulder that started at rest. He presented to the ED and was given three SL NTG with relief. Denies associated symptoms. Denies SOB or palpitations. He was hospitalized one month ago with similar chest pain. His pain was concerning for unstable angina so he was recommended for LHC. Troponin was negative at that time. On 12/18/16 he underwent LHC that demonstrated diffuse 30-40% stenosis in the LMCA, 40% stenosis in the Proximal LAD, 20% stenosis in the Mid LAD, 20% stenosis in the 1st Marginal 40% stenosis in the LPDA, 50% stenosis in the Ostial-Proximal RCA with small aneurysmal portion in the proximal RCA, and 40% stenosis in the R PDA. Aggressive risk factor modification and medical management was recommended. He is currently resting without discomfort. Past Med Surg Social Fam HX - Past Medical History Medical history: atrial fibrillation, coronary artery disease, hyperlipidemia, hypertension Psychiatric history: no psych history - Past Surgical History Surgical History: orthopedic, other (Right femur surgery), other (LHC on but no stent placed.) - Social History Smoking Status: Former smoker Smokeless Tobacco Status: No Alcohol use: none Drug use: none - Family History Brother Living Status: Still Living Hx Family Cardiac Disorders: Yes ([place], HD) Hx Family Cancer: Yes Father Adopted: No Family Member Ethnicity: Non- Living Status: Hx Family Cardiac Disorders: No Hx Family Respiratory Disorders: No Hx Family Cancer: Yes (Non Hodgkins lymphoma) Hx Family GI Disorders: No Hx Family Endocrine Disorder: No Hx Family Neuromuscular Disorders: No Hx Family Neurologic Disorders: No Hx Family HEENT Disorders: No Hx Family Autoimmune Disorders: No Mother Adopted: No Family Member Ethnicity: Non- Living Status: Hx Family Cardiac Disorders: Yes ([place], HD) Hx Family Respiratory Disorders: No Hx Family Cancer: Yes Hx Family GI Disorders: No Hx Family Endocrine Disorder: Yes (Goiter) Hx Family Neuromuscular Disorders: No Hx Family Neurologic Disorders: No Hx Family HEENT Disorders: Yes (GOiter, glaucoma) Hx Family Autoimmune Disorders: No Sister Living Status: Still Living Hx Family Cardiac Disorders: Yes (HTN) Hx Family Cancer: Yes (Renal) Medications and Allergies Metoprolol [Lopressor] 25 mg PO BID #60 tablet 11/03/16 [Rx] Atorvastatin [Lipitor] 40 mg PO HS 12/17/16 [History] Aspirin Enteric Coated [Aspirin EC] 81 mg PO DAILY #30 12/19/16 [Rx] Isosorbide MONOnitrate (24 HR) [Imdur] 30 mg PO DAILY #30 12/19/16 [Rx] Lisinopril [Zestril] 10 mg PO DAILY 01/16/17 [History] Warfarin [Coumadin] 5 mg PO 1800 01/16/17 [History] 3 Allergy/AdvReac Type Severity Reaction Status Date / Time No Known Allergies Allergy Verified 01/17/17 11:59 All Systems Review: A 10-system review of systems was performed and is negative for pertinent findings except as documented above in the HPI. Physical Examination Vital Signs, Last 4 Hours Temp Pulse Resp BP Pulse Ox 01/17/17 10:51 98.2 F 53 17 129/79 95 General: Conversant, No Apparent Distress HEENT: Atraumatic, Normocephaly, Mucus Membranes Moist Neck: No JVD, Normal carotid pulses Cardiac: Other (Irregular, afib on telemetry) Lungs: Normal Breath Sounds, No Wheeze, Rales, Rhonchi Neuro: Alert and responsive, No focal deficits noted Abdomen: Soft, Non-Tender Skin: No rashes noted on visualized skin Musculoskeletal: No Chest Wall Tenderness Extremities: No Clubbing, No Cyanosis, No Edema, Normal Pulses Results 01/16/17 18:40 01/17/17 00:58 Lab Results 01/17/17 01/17/17 01/17/17 00:58 00:58 00:58 INR 1.6 APTT Sodium 139 Potassium 3.4 L Chloride 108 Carbon Dioxide 24 BUN 22 Creatinine 0.85 Glucose 131 H Calcium 8.5 L Troponin I 0.00 01/17/17 01/17/17 06:05 06:05 INR APTT 81.7 H D Sodium Potassium Chloride Carbon Dioxide BUN Creatinine Glucose Calcium Troponin I 0.00 - Imaging and Cardiology Echo: report reviewed Cardiac cath: report reviewed - EKG Interpretation EKG results cardiology: personally reviewed Consult Discharge Plan - Plan Referrals: NONE,PCP [Primary Care Provider] - <Duane Lowry - Last Filed: 01/17/17 23:04> Date of Encounter: 01/17/17 Assessment and Plan Discussion w patient/family: The assessment and plan as outlined above was discussed with the patient and/or family members who expressed understanding and agreement. All questions were answered. Thank you for involving us in the care of your patient. Please call with any questions. History of Present Illness History of present illness: Mr. Bowden is a 56 year old male All Systems Review: A 10-system review of systems was performed and is negative for pertinent findings except as documented above in the HPI. Physical Examination Vital Signs, Last 4 Hours Temp Pulse Resp BP Pulse Ox 01/17/17 21:36 95 01/17/17 18:57 98.4 F 76 16 126/88 95 Results 01/16/17 18:40 01/17/17 00:58 Lab Results 01/17/17 01/17/17 01/17/17 00:58 00:58 00:58 INR 1.6 APTT Sodium 139 Potassium 3.4 L Chloride 108 Carbon Dioxide 24 BUN 22 Creatinine 0.85 Glucose 131 H Calcium 8.5 L Troponin I 0.00 01/17/17 01/17/17 01/17/17 06:05 06:05 12:00 INR APTT 81.7 H D 34.3 D Sodium Potassium Chloride Carbon Dioxide BUN Creatinine Glucose Calcium Troponin I 0.00 - Attending Attestation PT seen and examined indendently, chart reviewed, old records reviewed, LHC reviewed, essentially agree with above, my evaluation as follows: Asked to evaluate pt for chest pain, CAD CC Chest pain PT reports sudden onset mid sternal chest pain, radiating into left shoulder, 9/ 10, at most severe, asssociated with nausea and shortness of breath, lasting approx 45 mins before was improved with sl ntg, relieved with second ntg sl. Pt reports chest pain very similar to presentation 12/18/16, but with much more nausea and shortness of breath. Pt reports did not experience heart racing or skipping consistent with previous symptoms of afib with RVR. He and his note he is compliant with his medications. He has been pain free since admission. IMP/Plan 1. Chest Pain, associated with nausea and shortness of breath, relieved with ntgl suggestive of anginal etiology. Last LHC showed moderate obstruction LAD and RCA, no lesions appeared critical, will order stress imaging to determine if has ischemic substrate. 2. Moderate two vessel CAD, not clearly causing ischemic symptoms, on optimal medical tx, await results of stress imaging. 3. A fib with controlled ventricular response, on warfarin for primary stroke risk reduction, if stress is normal may consider DC cardioversion in attempt to restore NSR, has been on therapuetic warfarin greatet than six weeks. 4. Benign essential hypertension: controlled on current medications.
[2017-01-17] MEDS: Aspirin Enteric Coated 81 MG Tablet PO SCH (12:50)
[2017-01-17] MEDS: Isosorbide MONOnitrate (24 HR) 30 MG TAB.ER.24H PO SCH (12:51)
--- NOTE | 2017-01-17 15:33 | Internal Med Progress Note ---
Date of Encounter: 01/17/17 Time of Encounter: 15:20 - Assessment and plan (1) Chest pain Current Visit: Yes Status: Acute Assessment and plan: Patient reports sudden onset left-sided chest pain with radiation in the left shoulder 4 PM yesterday was sitting in his chair after working a full day at work. He reports shortness of breath and diaphoresis, no nausea or vomiting. He rates it 8/10 last approximately 1-2 hours and resolved with nitroglycerin. States this is similar to chest pain prior to his last heart catheter. [facility] with moderate atherosclerotic coronary artery disease, left ventricle is normal and has contractility EF 50%. No stents placed recommended optimal medical therapy and aggressive risk factor modification. Patient does not smoke , although he does have risk factors of hyperlipidemia, A. fib, hypertension. Troponins were negative 3. EKG was A. fib with no acute changes. Patient will have repeat heart catheter tomorrow and will be nothing by mouth after midnight. He was on a heparin drip earlier, cardiology has discontinued that. Continue aspirin, statin, beta shila Continue telemetry Nothing by mouth after midnight for [facility] in the morning. Continue to monitor labs and vital signs Qualifiers: Chest pain type: unspecified Qualified Code(s): R07.9 - Chest pain, unspecified (2) Essential hypertension Current Visit: Yes Status: Chronic Assessment and plan: Blood pressures been well controlled in the inpatient setting. Continue home medications. Continue to monitor vital signs. (3) Unstable angina pectoris Current Visit: Yes Status: Suspected Assessment and plan: Plan as above. (4) Atrial fibrillation Current Visit: Yes Status: Chronic Assessment and plan: A. fib on EKG. Rate controlled at this time. Patient is already on Coumadin for anticoagulation. Continue home medications. Pharmacy to dose Coumadin, INR was subtherapeutic on arrival. Patient was on a heparin drip which is stopped by cardiology. Continue to monitor patient. Continue telemetry Qualifiers: Atrial fibrillation type: unspecified Qualified Code(s): I48.91 - Unspecified atrial fibrillation (5) HLD (hyperlipidemia) Current Visit: Yes Status: Chronic Assessment and plan: Chronic. Continue home medications. Modify risk factors. Qualifiers: Hyperlipidemia type: pure hypercholesterolemia Qualified Code(s): E78.00 - Pure hypercholesterolemia, unspecified; E78.0 - Pure hypercholesterolemia (6) SOB (shortness of breath) Current Visit: Yes Status: Acute Assessment and plan: Patient reports shortness of breath with chest pain. Denies now. He is not requiring supplemental oxygen, he is not having chest pain, his lungs are clear , there is no peripheral edema. Continue to monitor. (7) Subtherapeutic international normalized ratio (INR) Current Visit: Yes Status: Acute Assessment and plan: INR 1.6 on admission. Subtherapeutic, goal between 2 and 3. Pharmacy is dosing at this time. Heparin drip has been stopped by cardiology. (8) DVT prophylaxis Current Visit: Yes Status: Acute Assessment and plan: Patient is on Coumadin. Pharmacy to dose. - Time Spent With Patient less than 15 minutes - Subjective Interval history: Patient resting quietly in bed, multiple family members at bedside. They will attempt to tell the story. Patient states that he was at home yesterday after working a full day at work, sitting in his chair watching TV when he began having left chest pain with radiation into his left shoulder. He reports associated diaphoresis and shortness of breath, denies nausea or vomiting. Reports it is 8/10. Lasted about 90 minutes to 2 hours and was relieved with nitroglycerin in the emergency department. He reports intermittent chest pain at this time. Denies needs or pain relief at this time. - Constitutional Vitals: Temp Pulse Resp BP Pulse Ox 98.2 F 53 17 129/79 95 01/17/17 10:51 01/17/17 10:51 01/17/17 10:51 01/17/17 10:51 01/17/17 10:51 General appearance: Present: cooperative, A&O X 3, no acute distress, answers questions appropriately - Head Head exam: Present: normal inspection, normocephalic - Eye Eye exam: Present: normal appearance, conjuntiva pink - ENT ENT exam: Present: mucous membranes moist, normal exam, normal external ear exam - Neck Neck exam general surgery: Present: normal inspection. Absent: lymphadenopathy , tenderness - Respiratory Respiratory exam: Present: CTAB. Absent: chest wall tenderness, decreased breath sounds, prolonged expiratory phase, rales, respiratory distress, rhonchi , stridor, wheezes, tachypnea - Cardiovascular Cardiovascular exam: Present: RRR, +S1, +S2. Absent: clicks, diastolic murmur, gallop, systolic murmur, tachycardia - GI/Abdominal GI/Abdominal exam: Present: distended, normal bowel sounds, soft. Absent: hepatomegaly, tenderness - Extremities Exam Extremities exam: Present: normal inspection, warm, radial pulses palpable and symmetrical. Absent: pedal edema, tenderness - Neurological Exam Neurological exam: Present: alert, oriented X3, no focal deficits, strengths equal and symetr throughout. Absent: facial droop, speech deficit - Skin Skin exam: Present: diaphoretic, intact, warm. Absent: rash, urticaria Internal Medicine: Result - Labs CBC & Chem 7: 01/16/17 18:40 01/17/17 00:58 Labs: BMP 01/17/17 00:58 Sodium 139 Potassium 3.4 L Chloride 108 Carbon Dioxide 24 BUN 22 Creatinine 0.85 Glucose 131 H Calcium 8.5 L Cardiac Enzymes 01/17/17 01/17/17 Range/Units 00:58 06:05 Troponin I 0.00 0.00 (0-0.03) ng/mL - ABG Interpretation ABG results: PT/INR, D-dimer PT 17.3 Seconds (9.4-12.1) H 01/17/17 00:58 Consult Discharge Plan - Plan Referrals: NONE,PCP [Primary Care Provider] -
[2017-01-17] MEDS ORDERED: Acetaminophen 325 MG TABLET PO PRN (17:02)
[2017-01-17] MEDS ORDERED: *HR* Warfarin 3 MG TABLET PO SCH (18:00)
[2017-01-17] MEDS ORDERED: *HR* Warfarin 5 MG TABLET PO SCH (18:00)
[2017-01-17] MEDS ORDERED: Warfarin perPT PO PRN (18:00)
--- NOTE | 2017-01-17 18:08 | Electrocardiograph Report ---
[address] [place], [place] [address] Test Date: 2017-01-16 Pat Name: Talat Bowden Department: 102 Room: 3B39 Gender: M Senior Php Developer: Ekp : 1960 Requested By: Jorge Moore Order Number: [id number] Reading MD: Marcio Andre MD Measurements Intervals [place] Rate: 93 P: ME: 0 QRS: 14 QRSD: 106 T: 18 QT: 355 QTc: 406 Interpretive Statements ATRIAL FIBRILLATION Electronically Signed On 01-17-2017 18:06:35 EDT by Marcio Andre MD
[2017-01-18 04:30] LABS: INR 1.4; Prothrombin Time 15.1 Seconds (9.4-12.1)
[2017-01-18 04:31] LABS: Basophils # 0.1 K/mcL (0.0-0.2); Basophils % 1.2 %; Eosinophils # 0.5 K/mcL (0.0-0.6); Eosinophils % 6.4 %; Hematocrit 45.2 % (37.5-50.1); Hemoglobin 14.6 g/dL (12.9-16.9); Immature Granulocytes % 0.4 % (0-4); Lymphocytes # 2.7 K/mcL (0.6-4.6); Lymphocytes % 37.3 %; Mean Corpuscular HGB Conc 32.3 g/dL (31.6-35.5); Mean Corpuscular Hemoglobin 28.5 pg (28.0-33.3); Mean Corpuscular Volume 88.3 fL (83.0-100.0); Mean Platelet Volume 9.5 fL (9.4-12.4); Monocytes # 0.5 K/mcL (0.0-1.3); Monocytes % 6.9 %; Neutrophils # 3.5 K/mcL (1.6-8.9); Platelet Count 182 K/mcL (140-400); Red Blood Count 5.12 M/mcL (4.19-5.50); Red Cell Distribution Width 13.5 % (11.5-14.5); Segmented Neutrophils % 47.8 %
[2017-01-18 04:37] LABS: BUN/Creatinine Ratio 19 (6-26); Blood Urea Nitrogen 17 mg/dL (8-26); Calcium 8.7 mg/dL (8.6-10.8); Carbon Dioxide 24 mEq/L (19-29); Chloride 108 mEq/L (98-109); Glucose 92 mg/dL (70-99); Osmolality,Calculated 287 (280-300); Potassium 3.9 mEq/L (3.5-4.5); Sodium 138 mEq/L (136-145); eGFR For African Americans > 60 (> 60); eGFR For Non-African Americans > 60 (> 60)
[2017-01-18] MEDS: Isosorbide MONOnitrate (24 HR) 30 MG TAB.ER.24H PO SCH (10:52)
[2017-01-18] MEDS: Aspirin Enteric Coated 81 MG Tablet PO SCH (10:52)
--- NOTE | 2017-01-18 12:31 | Nuclear Medicine Stress Report ---
Exercise Nuclear Stress Name: Talat Bowden Date of Study: 01/18/2017 Date: 1960 Ht: 73.0 in Medical Record#: [id number] Age: 56 Wt: 220.0 lb Gender: Male Order #: [id number] Location: [facility] IP Room: [facility] Supervising Provider: Sienna Merlos CNP Reading Physician: Helene Barksdale DO Ordering Physician: Maged Kaur CNP Primary Care Physician: None Stress Technologist: Narda Laureano, MELTING FURNACE SKIMMER, CCT, CPFT Extruding Department Supervisor: Pro Coles Indications: Chest Pain, AFIB Impression: Perfusion imaging was negative for ischemia or infarct. Exercise ECG was negative for ischemia at the level of heart rate achieved. Gated EF = 51%. History: Hypertension Hypercholesteremia Stress Test Summary: Stress Test Type: Treadmill Protocol: Marcio Baseline Information: Initial Heart Rate: 87 Blood Pressure: 110/82 Stress Information: Stress Time: 9 min 00 sec Test Terminated Due to (primary): Dyspnea Maximum Blood Pressure: 164/102 Maximum Heart Rate: 172 Percent Maximum Heart Rate Achieved: 104 Double Product: [id number] METS Reached: 10.1 Symptoms: Shortness of breath Nuclear Summary: SPECT myocardial perfusion imaging using Tc99m Sestamibi given intravenously was performed at rest and following cardiac stress testing. The resting images were obtained following initial dose of 11.3 mCi. Following stress an additional dose of 33.6 mCi was given at peak exercise or 30 seconds post regadenoson infusion. Medication Given: Time Medication Dose Units Route Findings: Stress Note * Atrial fibrillation with controlled ventricular response prior to exam beginning. * No arrhythmias were noted during stress. * Patient had no chest pain during stress. * The exercise capacity was good. Hemodynamic responses * Normal hemodynamic responses to exercise. Gated EF % * Gated EF = 51%. Left Ventricle * The left ventricle is not dilated. TID * No evidence of transient ischemic dilatation. Lung Uptake * There is no evidence of increase lung uptake. NORMALS * Normal wall motion. * Normal segmental perfusion in stress. * Normal Segmental Perfusion in rest. Updated by Helene Barksdale on 01/18/2017 12:23:52 PM electronically signed on 01/18/2017 12:24:58 PM with status of Final
[2017-01-18] MEDS ORDERED: Isosorbide MONOnitrate (24 HR) 30 MG TAB.ER.24H PO SCH (13:21)
[2017-01-18] MEDS ORDERED: *HR* Heparin 5,000 UNIT/ML VIAL SQ SCH (13:40)
--- NOTE | 2017-01-18 13:52 | Cardiology Progress Note ---
Date of Encounter: 01/18/17 Time of Encounter: 13:42 Assessment and Plan (1) Chest pain Current Visit: Yes Status: Acute Troponin negative x 3. EKG shows atrial fibrillation, no acute changes.He is rate controlled. C 12/18/16 showed moderate non-obstructive CAD as described in HPI. Stress test completed today was negative for ischemia or infarct. Continue medical management. Imdur increased. NTG SL indications, use, benefits, and side effects discussed. Patient voiced understanding. Out patient f/u is scheduled 02/06/17. Qualifiers: Chest pain type: unspecified Qualified Code(s): R07.9 - Chest pain, unspecified (2) Atrial fibrillation Current Visit: Yes Status: Chronic Diagnosed with atrial fibrillation in October. Started on coumadin therapy at last office visit 01/06/17. He is not therapeutic. Goal INR 2.0-3.0. Coumadin at 5 mg. Recommend increasing to 6 mg. No bridging. Patient reported rectal bleeding earlier this year that is now resolved, anticoagulation was initially held. Instructed to notify us of any changes. Rythm control verses rate control discussed. Telemetry review shows avg HR is 68 bpm. Occasional HR in the upper 30's noted during nocturnal hours. No significant bradycardia noted during daytime hours. No afib with RVR seen. Appears to be well rate controlled. Appt scheduled in afib clinic 02/06/[address] Domenic Vo. Qualifiers: Atrial fibrillation type: unspecified Qualified Code(s): I48.91 - Unspecified atrial fibrillation (3) CAD (coronary artery disease) Current Visit: Yes Status: Chronic Recently diagnosed moderate non-obstructive CAD. Continue asa, statin, bb. Qualifiers: Coronary Disease-Associated Artery/Lesion type: [place] artery [place] vs. transplanted heart: [place] heart Associated angina: angina presence unspecified Qualified Code(s): I25.10 - Atherosclerotic heart disease of [place] coronary artery without angina pectoris Discussion w patient/family: The assessment and plan as outlined above was discussed with the patient and/or family members who expressed understanding and agreement. All questions were answered. Thank you for involving us in the care of your patient. Please call with any questions. Subjective Principal diagnosis: Chest pain Interval history: Mr. Bowden denies recurrent chest pain. He underwent stress test with no significant findings today. His is concerned about his afib. At home HR occasionally up to 107. Mr. Bowden denies palpitations. Objective Vital Signs, Last 4 Hours Temp Pulse Resp BP Pulse Ox 01/18/17 11:31 98.2 F 73 14 137/97 94 General: Conversant, No Apparent Distress HEENT: Atraumatic, Normocephaly, Mucus Membranes Moist Neck: No JVD, Normal carotid pulses Cardiac: Other (Irregularly irregular) Lungs: Normal Breath Sounds, No Wheeze, Rales, Rhonchi Neuro: Alert and responsive, No focal deficits noted Abdomen: Soft, Non-Tender Skin: No rashes noted on visualized skin Musculoskeletal: No Chest Wall Tenderness Extremities: No Clubbing, No Cyanosis, No Edema, Normal Pulses Results 01/18/17 04:06 01/18/17 04:06 Lab Results 01/18/17 01/18/17 01/18/17 04:06 04:06 04:06 WBC 7.3 Hgb 14.6 Hct 45.2 Plt Count 182 INR 1.4 Sodium 138 Potassium 3.9 Chloride 108 Carbon Dioxide 24 BUN 17 Creatinine 0.89 Glucose 92 Calcium 8.7 - Imaging and Cardiology Stress Test: report reviewed - EKG Interpretation EKG results cardiology: personally reviewed Consult Discharge Plan - Plan Referrals: NONE,PCP [Primary Care Provider] -
[2017-01-18 14:43] VITALS: BP 112/79
--- NOTE | 2017-01-18 17:26 | Discharge Summary ---
Date of Encounter: 01/18/17 Time of Encounter: 10:50 - Discharge Diagnosis (1) Chest pain Priority: Primary Status: Acute Comments: Troponin negative x 3. EKG shows atrial fibrillation, no acute ST changes.He is rate controlled. [facility] 12/18/16 showed moderate atherosclerotic coronary artery disease, left ventricle normal has contractility EF 50% no stents placed, recommended optimal medical therapy and aggressive risk factor modification.. Stress test completed today was negative for ischemia or infarct. Continue medical management, aspirin, statin, beta shila Imdur increased. NTG SL indications, use, benefits, and side effects discussed. Patient voiced understanding. Out patient f/u is scheduled 02/06/17. Pt denies chest pain today. Qualifiers: Chest pain type: unspecified Qualified Code(s): R07.9 - Chest pain, unspecified (2) Essential hypertension Priority: Secondary Status: Chronic Comments: Well-controlled in inpatient setting. Continue home medications. (3) Unstable angina pectoris Priority: Secondary Status: Suspected Comments: Plan as above (4) Atrial fibrillation Priority: Secondary Status: Chronic Comments: Rate controlled. Continue medications. Qualifiers: Atrial fibrillation type: unspecified Qualified Code(s): I48.91 - Unspecified atrial fibrillation (5) HLD (hyperlipidemia) Priority: Secondary Status: Chronic Comments: Chronic. Continue home medications. Qualifiers: Hyperlipidemia type: pure hypercholesterolemia Qualified Code(s): E78.00 - Pure hypercholesterolemia, unspecified; E78.0 - Pure hypercholesterolemia (6) SOB (shortness of breath) Priority: Secondary Status: Resolved Comments: Denies shortness of breath today. (7) Subtherapeutic international normalized ratio (INR) Priority: Secondary Status: Acute Comments: Pharmacy is dosing Coumadin. Patient was receiving heparin subcutaneous for DVT prophylaxis, he is receiving 6 mg of warfarin tonight prior to discharge. (8) DVT prophylaxis Priority: Secondary Status: Acute Comments: Heparin subcutaneous. - Discharge Medications Home Medications: Metoprolol [Lopressor] 25 mg PO BID #60 tablet 11/03/16 [Rx] Atorvastatin [Lipitor] 40 mg PO HS 12/17/16 [History] Aspirin Enteric Coated [Aspirin EC] 81 mg PO DAILY #30 12/19/16 [Rx] Isosorbide MONOnitrate (24 HR) [Imdur] 30 mg PO DAILY #30 12/19/16 [Rx] Lisinopril [Zestril] 10 mg PO DAILY 01/16/17 [History] Warfarin [Coumadin] 5 mg PO 1800 01/16/17 [History] Allergies/Adverse Reactions: 3 Allergy/AdvReac Type Severity Reaction Status Date / Time No Known Allergies Allergy Verified 01/17/17 11:59 Procedures/tests Complete & Pending: Procedures Performed prior 72 hours Category Date Time Status NM edel perf SPECT multi [NM] Routine Exams 01/18/17 06:10 Taken SP exercise nuclear stress Routine Y 01/18/17 07:30 Completed Date of admission: 01/16/17 23:36 Primary care physician: PCP NONE Consults: 01/17/17 02:51 Consult to Cardiology [CONS] Routine Comment: Consulting Provider: Cardiology Araceli Reason for Consult: Moderate CAD per [facility] on 12/18/16 & no stent placed. Admitted for similiar chest pain at rest. 1st troponin negative. Concern of unstable angina. On heparin drip. Appreciate evaluation & recommendation. Call Completed: No Discharging clinician: Mila Castellon Anticipated date of discharge: 01/18/17 - Patient Status Disposition: Home, Self-Care Condition: Good Functional capacity at discharge: independent ambulation Overall status at discharge: patient is back to baseline - Discharge Instructions Follow Up With: NONE,PCP [Primary Care Provider] - Additional Instructions: Follow up with cardiology outpatient on 02/06/2017. Follow-up primary care provider within the next 7-10 days for follow-up visit. Resume your normal home medications. Start your new medication, Imdur, tomorrow. Return to the emergency department immediately if you have any other problems or concerns or if her symptoms return or worsen. - Diet and Activity Activity: increase activity as tolerated Diet: advance to your usual diet Hospital course: Mr. Bowden is a 56 year old male with past medical history of lower GI bleed, hemorrhoids, A. fib, hypertension, unstable angina, A. fib, hyperlipidemia, and coronary artery disease. Patient presented to the emergency department with complaint of chest pain radiating to left shoulder. It happened while he was at rest and lasted for about 90 minutes to 2 hours. He describes it as sharp, constant and similar to the chest pain he had before his [facility]. It was alleviated by nitroglycerin in the emergency department. He had associated shortness of breath and diaphoresis. He denies lightheadedness, syncope, palpitations, edema, nausea, vomiting. Patient denies chest pain since arrival. Patient's troponins were negative 3. EKG was A. fib with no acute ST changes and rate controlled. Patient had a left heart catheter in November, that showed moderate, nonobstructive CAD. He was held over until this morning for a stress test which shows gated EF is 51%, was negative for ischemia or infarct. Patient is on Coumadin for A. fib. He started approximately one month ago and his last office visit. He is subtherapeutic and follows up with Coumadin clinic. He was dosed by pharmacy while he was here and will take 6 mg tonight. Cardiology recommended continued medical management and have added Imdur, as well as nitroglycerin sublingual. They also increased Coumadin from 5 mg a day to 6 mg without bridging. He has a history of rectal bleeding earlier this year that has resolved. He is aware that he needs to monitor for this and notify cardiology office if there is any bright red bleeding or dark tarry stools. He will follow-up with cardiology in the office on February 06. He will continue to take his aspirin, Imdur, Zestril, Lopressor, and Zocor upon discharge. His vital signs are within normal limits, pulse is in the mid 60s to mid 70s and blood pressure is normotensive. His labs are within normal limits. He is ready for discharge. - Time Spent with Patient Total time spent providing and/or coordinating discharge services: Less than 30 minutes - Constitutional Vitals: Temp Pulse Resp BP Pulse Ox 98.1 F 65 16 112/79 94 01/18/17 14:41 01/18/17 14:41 01/18/17 14:41 01/18/17 14:41 01/18/17 14:41 General appearance: Present: cooperative, A&O X 3, no acute distress, answers questions appropriately - Head Head exam: Present: atraumatic, normocephalic - Eye Eye exam: Present: PERRL, conjuntiva pink, sclera anicteric Pupils: Present: PERRL - Neck Neck exam general surgery: Present: supple, trachea midline. Absent: lymphadenopathy - Respiratory Respiratory exam: Present: CTAB. Absent: accessory muscle use, rales, rhonchi, wheezes - Cardiovascular Cardiovascular exam: Present: RRR, +S1, +S2. Absent: diastolic murmur, gallop, rubs, systolic murmur - GI/Abdominal GI/Abdominal exam: Present: normal bowel sounds, soft, no peritoneal signs. Absent: distended, tenderness - Extremities Exam Extremities exam: Present: warm, radial pulses palpable and symmetrical. Absent : calf tenderness, cyanotic, pedal edema - Neurological Exam Neurological exam: Present: CN II-XII intact, oriented X3, no focal deficits. Absent: pronater drift, facial droop, speech deficit - Skin Skin exam: Present: dry, intact
[2017-01-18] MEDS ORDERED: *HR* Warfarin 3 MG TABLET PO ONE (18:00)
== END 2017-01-18 18:09 | disposition home or self-care (01) | DRG 303 ==
LOC: EMEROO 18:08 → 3BNU 18:08
PROVIDERS: ADMIT Internal Medicine; ATTEND Registered Nurse

== ENCOUNTER 2017-03-28 12:57 | Observation (INO) ==
[2017-03-28] MEDS ORDERED: Aspirin 81 MG TAB.CHEW PO ONE (13:11)
[2017-03-28 13:22] LABS: Basophils # 0.1 K/mcL (0.0-0.2); Basophils % 0.5 %; Eosinophils # 0.3 K/mcL (0.0-0.6); Eosinophils % 2.2 %; Hematocrit 48.8 % (37.5-50.1); Hemoglobin 16.6 g/dL (12.9-16.9); Immature Granulocytes % 0.4 % (0-4); Lymphocytes # 2.6 K/mcL (0.6-4.6); Lymphocytes % 20.2 %; Mean Corpuscular Hemoglobin 30.3 pg (28.0-33.3); Mean Corpuscular Volume 89.1 fL (83.0-100.0); Mean Platelet Volume 9.5 fL (9.4-12.4); Monocytes # 0.9 K/mcL (0.0-1.3); Monocytes % 7.2 %; Neutrophils # 8.9 K/mcL (1.6-8.9); Platelet Count 239 K/mcL (140-400); Red Blood Count 5.48 M/mcL (4.19-5.50); Red Cell Distribution Width 13.2 % (11.5-14.5); Segmented Neutrophils % 69.5 %
[2017-03-28 13:26] LABS: Prothrombin Time 21.9 Seconds (9.4-12.1)
[2017-03-28 13:33] LABS: BUN/Creatinine Ratio 15 (6-26); Blood Urea Nitrogen 17 mg/dL (8-26); Calcium 9.3 mg/dL (8.6-10.8); Carbon Dioxide 28 mEq/L (19-29); Chloride 106 mEq/L (98-109); Glucose 79 mg/dL (70-99); Osmolality,Calculated 290 (280-300); Potassium 4.1 mEq/L (3.5-4.5); Sodium 140 mEq/L (136-145); eGFR For African Americans > 60 (> 60); eGFR For Non-African Americans > 60 (> 60)
--- NOTE | 2017-03-28 14:41 | Emergency Department Note ---
Disposition Clinical Impression: Chest pain Qualifiers: Chest pain type: other chest pain Qualified Code(s): R07.89 - Other chest pain ; R07.8 - Other chest pain Disposition: Admitted As Inpatient Condition: Good Referrals: NONE,PCP [Primary Care Provider] - Forms: ED Satisfaction Letter Time of Disposition: 15:47 General Adult HPI - General Chief complaint: ED Chest Pain Stated complaint: chest pain Time Seen by Provider: 03/28/17 12:58 Source: patient Mode of arrival: ambulatory Limitations: no limitations Nursing Notes Reviewed: Yes Vital Signs Reviewed: Yes - History of Present Illness HPI Narrative: 56-year-old male presents to the emergency Department chief complaint shortness of breath and chest pain. Patient states while he was at [employer] today he started getting short of breath and then he overslept later started having substernal chest pain. Patient denies radiation of the pain, diaphoresis, nausea, or vomiting. Patient states he was worked up in December for chest pain and had a stress test and a cardiac catheterization completed. He was told he had 30-40% blockage in 2 or more coronary arteries but did not receive a stent. Patient has significant past medical history of A. fib. He is on Coumadin at this time for anticoagulation. Pain Scale: 3 - Related Data Home Medications Medication Instructions Recorded Confirmed Atorvastatin [Lipitor] 40 mg PO HS 12/17/16 03/28/17 Lisinopril [Zestril] 10 mg PO DAILY 01/16/17 03/28/17 Warfarin [Coumadin] 5 mg PO WESA 01/16/17 03/28/17 Warfarin [Coumadin] 7.5 mg PO SUMOTUTHFR 03/28/17 03/28/17 Previous Rx's Medication Instructions Recorded Metoprolol [Lopressor] 25 mg PO BID #60 tablet 11/03/16 Aspirin Enteric Coated [Aspirin EC] 81 mg PO DAILY #30 12/19/16 Isosorbide MONOnitrate (24 HR) 60 mg PO DAILY #60 01/18/17 [Imdur] Nitroglycerin 0.3 mg SL Q5MIN PRN #6 tab.subl 01/18/17 Allergies Allergy/AdvReac Type Severity Reaction Status Date / Time No Known Allergies Allergy Verified 01/17/17 11:59 All systems ED: reviewed and negative except as stated. Constitutional: Denies: fever, chills, weakness Eyes: Reports: as per HPI ENT ED: Reports: as per HPI Cardiovascular: Reports: chest pain. Denies: palpitations, dyspnea on exertion Respiratory: Denies: cough, dyspnea, wheezes Gastrointestinal: Denies: abdominal pain, nausea, vomiting Genitourinary: Reports: as per HPI Musculoskeletal: Reports: as per HPI Integumentary: Denies: rash, abrasion, lesions Neurological: Denies: weakness, numbness, paresthesias Psychiatric: Reports: as per HPI Endocrine: Reports: as per HPI Hematological/Lymphatic: Reports: as per HPI Allergic/Immunologic: Reports: as per HPI Past Medical History - Past Medical History Attestation: Yes The following information was validated with the patient. Medical history: Reports: atrial fibrillation, coronary artery disease, hyperlipidemia, hypertension Surgical history: Reports: orthopedic, other (Right femur surgery), other ([facility] on 12/18/16 but no stent placed.) Psychiatric history: Reports: no psych history - Social History Smoking Status: Former smoker Smokeless Tobacco Status: No Alcohol use: Reports: none Drug use: Reports: none Physical Exam - General Limitations: no limitations General appearance: alert, in no apparent distress - Head Head exam: atraumatic, normocephalic, normal inspection - Eye Eye exam: Present: normal appearance. Absent: scleral icterus, conjunctival injection - Chest Chest inspection: Present: normal inspection, symmetric chest wall rise. Absent : tenderness, rash - Respiratory Respiratory exam: Present: normal lung sounds bilaterally. Absent: respiratory distress, wheezes - Cardiovascular Cardiovascular exam: Present: regular rate, normal rhythm, normal heart sounds - Abdominal Exam Abdominal exam: Present: soft, Non-Tender. Absent: distention, guarding, rebound - Extremities Exam Extremities exam: Present: normal inspection, full ROM - Neurological Exam Neurological exam: Present: alert, oriented X3 - Psychiatric Psychiatric exam: Present: normal affect, normal mood - Skin Skin exam: Present: warm, intact Course Course Narrative: 56-year-old male presenting to the emergency department for chest pain. Patient has a significant past medical history including previous catheterization but no stent placement. Heart score greater than 3 at this time. We will perform a cardiac workup including troponin, EKG, chest x-ray. Disposition will most likely be admission. Patient's alert and oriented 3 in the room with stable vital signs at this time and agrees with this plan. - Reevaluation(s) Reevaluation #1: All lab work has come back within normal limits. I spoke with the blanket binder on-call Dr. Beasley who agrees with the plan of admitting the patient at this time for further workup. I will page the hospitalist at this time and have the patient admitted for chest pain rule out. I spoke with the family and the patient who agrees with this plan. Patient's alert and oriented in the room 3 with stable vital signs this time Time: 14:50 Reevaluation #2: The hospitalist Gustavo Stafford accepts the patient. We will obtain a UA as requested by the hospitalist. Time: 15:47 Vital Signs Temperature 97.3 F L 03/28/17 13:00 Pulse Rate 75 03/28/17 13:00 Respiratory Rate 18 03/28/17 13:00 Blood Pressure 109/80 03/28/17 13:00 O2 Sat by Pulse Oximetry 95 03/28/17 13:00 Temperature 97.3 F L 03/28/17 13:00 Pulse Rate 73 03/28/17 15:44 Respiratory Rate 16 03/28/17 15:44 Blood Pressure 105/75 03/28/17 15:44 O2 Sat by Pulse Oximetry 92 03/28/17 15:44 Oxygen Delivery Oxygen Delivery Room Air Medical Decision Making - Lab Data Result diagrams: 03/28/17 13:07 03/28/17 13:07 Lab Results 03/28/17 03/28/17 03/28/17 Range/Units 13:07 13:07 13:07 WBC 12.8 H (4.3-11.1) K/mcL RBC 5.48 (4.19-5.50) M/mcL Hgb 16.6 (12.9-16.9) g/dL Hct 48.8 (37.5-50.1) % MCV 89.1 (83.0-100.0) fL MCH 30.3 (28.0-33.3) pg MCHC 34.0 (31.6-35.5) g/dL RDW 13.2 (11.5-14.5) % Plt Count 239 (140-400) K/mcL MPV 9.5 (9.4-12.4) fL Immature Gran % 0.4 (0-4) % Seg Neutrophils % 69.5 % Lymphocytes % 20.2 % Monocytes % 7.2 % Eosinophils % 2.2 % Basophils % 0.5 % Neutrophils # 8.9 (1.6-8.9) K/mcL Lymphocytes # 2.6 (0.6-4.6) K/mcL Monocytes # 0.9 (0.0-1.3) K/mcL Eosinophils # 0.3 (0.0-0.6) K/mcL Basophils # 0.1 (0.0-0.2) K/mcL PT 21.9 H (9.4-12.1) Seconds INR 2.0 Sodium 140 (136-145) mEq/L Potassium 4.1 (3.5-4.5) mEq/L Chloride 106 (98-109) mEq/L Carbon Dioxide 28 (19-29) mEq/L BUN 17 (8-26) mg/dL Creatinine 1.17 (0.72-1.25) mg/dL Est GFR ( Amer) > 60 (> 60) Est GFR (Non-Af Amer) > 60 (> 60) BUN/Creatinine Ratio 15 (6-26) Glucose 79 (70-99) mg/dL Calculated Osmolality 290 (280-300) Calcium 9.3 (8.6-10.8) mg/dL Troponin I (0-0.03) ng/mL 03/28/17 Range/Units 13:07 WBC (4.3-11.1) K/mcL RBC (4.19-5.50) M/mcL Hgb (12.9-16.9) g/dL Hct (37.5-50.1) % MCV (83.0-100.0) fL MCH (28.0-33.3) pg MCHC (31.6-35.5) g/dL RDW (11.5-14.5) % Plt Count (140-400) K/mcL MPV (9.4-12.4) fL Immature Gran % (0-4) % Seg Neutrophils % % Lymphocytes % % Monocytes % % Eosinophils % % Basophils % % Neutrophils # (1.6-8.9) K/mcL Lymphocytes # (0.6-4.6) K/mcL Monocytes # (0.0-1.3) K/mcL Eosinophils # (0.0-0.6) K/mcL Basophils # (0.0-0.2) K/mcL PT (9.4-12.1) Seconds INR Sodium (136-145) mEq/L Potassium (3.5-4.5) mEq/L Chloride (98-109) mEq/L Carbon Dioxide (19-29) mEq/L BUN (8-26) mg/dL Creatinine (0.72-1.25) mg/dL Est GFR ( Amer) (> 60) Est GFR (Non-Af Amer) (> 60) BUN/Creatinine Ratio (6-26) Glucose (70-99) mg/dL Calculated Osmolality (280-300) Calcium (8.6-10.8) mg/dL Troponin I 0.01 (0-0.03) ng/mL - EKG Data EKG #1 EKG attestation: Yes I reviewed and interpreted this EKG. EKG results narrative: Atrial fibrillation. 77 bpm. QRS of 105, QTC 401. No signs of ST segment elevation or acute ischemia. Compared to previous EKG completed on 01/16/2017 no significant changes noted
--- NOTE | 2017-03-28 14:50 | Emergency Department Note ---
START Narrative - START START: I examined this patient and my medical decision-making was reviewed with the BUILDING SUPERINTENDENT/PA/Advanced Practice Nurse/Resident Physician. I agree with the documented findings, disposition and treatment plan as described except to the extent set forth below. ED attending: Patient's emergency medicine resident Dr. Salvador. Please see copy of this note for H&P evaluation and management and ED disposition. We both had independent [id number] time in contact with this patient. Briefly: A 56-year-old male history of mild diffuse coronary artery disease and unstable angina recently Dopp in November [facility] discharge home with medical management presents with nonexertional chest pain and pressure. EKG shows nonspecific changes however no acute changes. Patient's other labs within normal limits chest x-ray process troponin negative discussed case with cardiology and call who recommends admission. Hospitalist page admission pending.
[2017-03-28] MEDS ORDERED: 0.9 % Sodium Chloride 250 ML IVC ONE (15:28)
[2017-03-28 16:22] LABS: Bilirubin,Urine Negative (Negative); Blood,Urine Negative (Negative); Clarity,Urine Clear (Clear); Color,Urine Yellow (Yellow); Glucose,Urine (UA) Normal (Normal); Ketones,Urine Negative (Negative); Leukocyte Esterase,Urine Negative (Negative); Nitrite,Urine Negative (Negative); PH,Urine 5.5 pH Units (5.0-8.0); Protein,Urine Negative (Neg-Trace); Specific Gravity,Urine 1.025 (1.010-1.025); Urobilinogen,Urine Normal (Normal)
--- NOTE | 2017-03-28 16:58 | Internal Med History&Physical ---
Date of Encounter: 03/28/17 Time of Encounter: 16:34 Assessment and Plan (1) Chest pain Current visit: Yes Status: Acute Patient reports sudden onset chest pain at [facility]. Last approximately 15-20 minutes, sharp, no radiation, no nausea or vomiting. Patient reports feeling lightheaded with position change, no dyspnea on exertion, no chest pain on exertion. There are no aggravating or relieving factors. Pain was resolved in the emergency department received aspirin. Patient had negative stress test in December,. Patient had LHC in November, with moderate atherosclerotic coronary artery disease. He did not receive any interventions. An EF of 50%, optimal medical therapy of patient's disease was the outcome. She had an echocardiogram in October, with an LVEF of 50-55%, mild concentric LV hypertrophy, indeterminate diastolic function, mild MR. He currently takes Imdur 30 mg by mouth daily, there is room to move for chest pain with the Imdur. -Telemetry -Cardiology consult -Chest pain control with aspirin, nitroglycerin, morphine- -continue cycle troponins -EKG in the a.m. -Continue aspirin, statin, beta shila, Imdur Qualifiers: Chest pain type: other chest pain Qualified Code(s): R07.89 - Other chest pain; R07.8 - Other chest pain (2) URI (upper respiratory infection) Current visit: Yes Status: Acute Patient reports 1 day history of clear rhinorrhea, nasal congestion, nonproductive cough. Patient has mild leukocytosis, most likely active from chest pain. We will continue to monitor. Chest x-ray negative for infiltrates or effusions. Claritin and Flonase. Flu swab and viral panel. Qualifiers: URI type: unspecified viral URI Qualified Code(s): J06.9 - Acute upper respiratory infection, unspecified; B97.89 - Other viral agents as the cause of diseases classified elsewhere; B97.89 - Other viral agents as the cause of diseases classified elsewhere (3) Essential hypertension Current visit: Yes Status: Chronic Well controlled in the hospital. Continue home medications. Monitor vitals per orders. (4) Atrial fibrillation Current visit: Yes Status: Chronic Patient with history of A. fib. Rate controlled with metoprolol. He is on anticoagulation with warfarin. His therapeutic at 2.0. He goes to the Coumadin clinic every 2 weeks now. Pharmacy to dose warfarin. Qualifiers: Atrial fibrillation type: unspecified Qualified Code(s): I48.91 - Unspecified atrial fibrillation (5) HLD (hyperlipidemia) Current visit: Yes Status: Chronic Chronic. Continue home medications. Qualifiers: Hyperlipidemia type: pure hypercholesterolemia Qualified Code(s): E78.00 - Pure hypercholesterolemia, unspecified; E78.0 - Pure hypercholesterolemia (6) CAD (coronary artery disease) Current visit: Yes Status: Chronic Plan as above. Continue aspirin, statin, beta shila, Imdur. Qualifiers: Coronary Disease-Associated Artery/Lesion type: [place] artery [place] vs. transplanted heart: [place] heart Associated angina: angina presence unspecified Qualified Code(s): I25.10 - Atherosclerotic heart disease of [place] coronary artery without angina pectoris (7) DVT prophylaxis Current visit: No Status: Acute Heparin subcutaneous daily. Patient is ambulatory. Internal Medicine - H&P: HPI Chief complaint: chest pain, congestion, URI Admitted From: Home Plans for Post Hospital Care: Home History of present illness: Mr. Bowdne is a 56 year old male with past medical history of GI bleed, hemorrhoids, A. fib rate controlled with metoprolol and anticoagulation, hypertension, unstable angina, hyperlipidemia, coronary artery disease. He presented to the emergency department with complaint of Sudden onset left chest pain without radiation, he denies associated nausea and vomiting. He does report being lightheaded with position change. No dyspnea on exertion or chest pain with exertion. No relieving or aggravating factors. Chest pain was relieved in the emergency room with aspirin. He describes the pain as sharp, lasting 15-20 minutes. Also complains of nasal congestion, difficulty breathing, nonproductive cough since yesterday. Initial workup in the emergency department shows EKG with atrial fibrillation. Patient has known history of A. fib and takes Coumadin, INR is therapeutic at 2.0. It is also rate controlled with metoprolol. He was admittedin December, had a cardiac workup at that time. Patient has stress test that was negative, with a gated EF of 51%. Patient had LHC in November,. Impression was moderate atherosclerotic coronary artery disease, EF of 50%. Cardiology recommended optimal medical therapy and aggressive risk factor modifications. Risk factors include hyperlipidemia, A. fib, hypertension. Patient quit smoking about 10 years ago. Patient's chest x-ray negative for acute findings. There is stable borderline cardiac enlargement with minimal linear atelectasis in the right costophrenic angle. There is no evidence of pneumonia. Patient's troponin is negative 1. Patient also reports 1 day history of clear rhinorrhea, nasal congestion, nonproductive cough. Patient does have a mild leukocytosis, however did not fill to related, most likely reactive. Patient is afebrile there is no tachycardia. Room air sats around 92-95% on room air. He is not requiring supplemental oxygen. Vital signs are stable. In the emergency department monitor showed A. fib, rate in the 80s, blood pressure 105/75, respirations 20, room air sat 94%. He was admitted for further evaluation. Past Med Surg Social Fam HX - Past Medical History Medical history: atrial fibrillation, coronary artery disease, hyperlipidemia, hypertension Psychiatric history: no psych history - Past Surgical History Surgical History: orthopedic, other (Right femur surgery), other (C on but no stent placed.) - Social History Smoking Status: Former smoker Smokeless Tobacco Status: No Alcohol use: none Drug use: none - Family History Brother Living Status: Still Living Hx Family Cardiac Disorders: Yes ([place], HD) Hx Family Cancer: Yes Father Adopted: No Family Member Ethnicity: Non- Living Status: Hx Family Cardiac Disorders: No Hx Family Respiratory Disorders: No Hx Family Cancer: Yes (Non Hodgkins lymphoma) Hx Family GI Disorders: No Hx Family Endocrine Disorder: No Hx Family Neuromuscular Disorders: No Hx Family Neurologic Disorders: No Hx Family HEENT Disorders: No Hx Family Autoimmune Disorders: No Mother Adopted: No Family Member Ethnicity: Non- Living Status: Hx Family Cardiac Disorders: Yes ([place], HD) Hx Family Respiratory Disorders: No Hx Family Cancer: Yes Hx Family GI Disorders: No Hx Family Endocrine Disorder: Yes (Goiter) Hx Family Neuromuscular Disorders: No Hx Family Neurologic Disorders: No Hx Family HEENT Disorders: Yes (GOiter, glaucoma) Hx Family Autoimmune Disorders: No Sister Living Status: Still Living Hx Family Cardiac Disorders: Yes (HTN) Hx Family Cancer: Yes (Renal) Internal Medicine - H&P: Meds Metoprolol [Lopressor] 25 mg PO BID #60 tablet 11/03/16 [Rx] Atorvastatin [Lipitor] 40 mg PO HS 12/17/16 [History] Aspirin Enteric Coated [Aspirin EC] 81 mg PO DAILY #30 12/19/16 [Rx] Lisinopril [Zestril] 10 mg PO DAILY 01/16/17 [History] Warfarin [Coumadin] 5 mg PO WESA 01/16/17 [History] Isosorbide MONOnitrate (24 HR) [Imdur] 60 mg PO DAILY #60 01/18/17 [Rx] Nitroglycerin 0.3 mg SL Q5MIN PRN #6 tab.subl 01/18/17 [Rx] Warfarin [Coumadin] 7.5 mg PO SUMOTUTHFR 03/28/17 [History] 3 Allergy/AdvReac Type Severity Reaction Status Date / Time No Known Allergies Allergy Verified 01/17/17 11:59 All Systems PM: A 10-system review of systems was performed and is negative for pertinent findings except as documented above in the HPI. - Constitutional Constitutional: no chills, no fever(s), no malaise, no weakness - EENT Eyes: no blurry vision Ears: no ear discharge Nose, mouth and throat: no facial pain, no hoarseness, no post-nasal drip, no sinus pressure, no sore throat - Cardiovascular Cardiovascular ROS IM: chest pain, irregular heart rhythm, no dyspnea, no syncope - Respiratory Respiratory: cough, chest congestion, no dyspnea on exertion, no pain on inspiration - Musculoskeletal Musculoskeletal ROS IM: no neck pain, no numbness, no stiffness, no tingling - Neurological Neurological ROS: no numbness, no restless legs, no tingling, no weakness - Psychiatric Psychiatric: no homicidal ideation, no suicidal ideation - Constitutional Vitals: Temp Pulse Resp BP Pulse Ox 97.3 F L 73 12 105/75 92 03/28/17 13:00 03/28/17 15:44 03/28/17 16:39 03/28/17 16:39 03/28/17 15:44 General appearance: Present: cooperative, A&O X 3, pleasant, no acute distress, answers questions appropriately - Head Head exam: Present: atraumatic, normal inspection, normocephalic - Eye Eye exam: Present: normal appearance, PERRL, conjuntiva pink, sclera anicteric Pupils: Present: PERRL - ENT ENT exam: Present: mucous membranes moist, normal exam - Neck Neck exam general surgery: Present: normal inspection, supple, trachea midline. Absent: lymphadenopathy, tenderness - Respiratory Respiratory exam: Present: CTAB. Absent: accessory muscle use, rales, respiratory distress, rhonchi, wheezes - Cardiovascular Cardiovascular exam: Present: irregular rhythm, +S1, +S2. Absent: diastolic murmur, gallop, rubs, systolic murmur - GI/Abdominal GI/Abdominal exam: Present: normal bowel sounds, soft, no peritoneal signs. Absent: distended, hepatomegaly, tenderness - Extremities Exam Extremities exam: Present: normal capillary refill, warm, radial pulses palpable and symmetrical. Absent: calf tenderness, cyanotic, pedal edema, tenderness - Neurological Exam Neurological exam: Present: alert, oriented X3, no focal deficits. Absent: facial droop, speech deficit - Skin Skin exam: Present: dry, intact, normal color, warm. Absent: rash Internal Med - H&P Results - Labs CBC & Chem 7: 03/28/17 13:07 03/28/17 13:07 Labs: Urine 03/28/17 Range/Units 16:16 Urine Color Yellow (Yellow) Urine Clarity Clear (Clear) Urine pH 5.5 (5.0-8.0) pH Units Ur Specific [place] 1.025 (1.010-1.025) Urine Protein Negative (Neg-Trace) mg/dL Urine Glucose (UA) Normal (Normal) mg/dL
[2017-03-28] MEDS ORDERED: Naloxone 0.4 MG/ML INJ IVP PRN (17:22)
[2017-03-28] MEDS ORDERED: MOM Conc 10 ML UD.LIQ PO PRN (17:22)
[2017-03-28] MEDS ORDERED: Acetaminophen 325 MG TABLET PO PRN (17:22)
[2017-03-28] MEDS ORDERED: *HR* Morphine 2 MG/ML SYRINGE IVP PRN (17:22)
[2017-03-28] MEDS ORDERED: Ondansetron 4 MG/2 ML VIAL IVP PRN (17:22)
[2017-03-28] MEDS ORDERED: *HR* Warfarin 7.5 MG TABLET PO ONE (18:00)
[2017-03-28] MEDS ORDERED: Warfarin perPT PO PRN (18:00)
[2017-03-28] MEDS: Fluticasone Propionate Nasal 50 MCG/SPRAY BOTTLE NS SCH (18:21)
[2017-03-28] MEDS: Loratadine 10 MG TABLET PO SCH (18:21)
[2017-03-29 05:12] LABS: Basophils # 0.1 K/mcL (0.0-0.2); Basophils % 0.8 %; Eosinophils # 0.4 K/mcL (0.0-0.6); Eosinophils % 3.4 %; Hematocrit 45.6 % (37.5-50.1); Hemoglobin 15.4 g/dL (12.9-16.9); Immature Granulocytes % 0.4 % (0-4); Lymphocytes # 2.5 K/mcL (0.6-4.6); Lymphocytes % 23.3 %; Mean Corpuscular HGB Conc 33.8 g/dL (31.6-35.5); Mean Corpuscular Volume 88.7 fL (83.0-100.0); Mean Platelet Volume 9.6 fL (9.4-12.4); Monocytes # 0.9 K/mcL (0.0-1.3); Monocytes % 8.2 %; Platelet Count 183 K/mcL (140-400); Red Blood Count 5.14 M/mcL (4.19-5.50); Red Cell Distribution Width 13.2 % (11.5-14.5); Segmented Neutrophils % 63.9 %
[2017-03-29 05:28] LABS: BUN/Creatinine Ratio 15 (6-26); Blood Urea Nitrogen 16 mg/dL (8-26); Calcium 8.6 mg/dL (8.6-10.8); Carbon Dioxide 24 mEq/L (19-29); Chloride 106 mEq/L (98-109); Glucose 99 mg/dL (70-99); Magnesium 2.1 mg/dL (1.6-2.6); Osmolality,Calculated 289 (280-300); Sodium 139 mEq/L (136-145); eGFR For African Americans > 60 (> 60); eGFR For Non-African Americans > 60 (> 60)
[2017-03-29] MEDS: Loratadine 10 MG TABLET PO SCH (08:59)
[2017-03-29] MEDS ORDERED: Aspirin Enteric Coated 81 MG Tablet PO SCH (09:00)
[2017-03-29] MEDS: Fluticasone Propionate Nasal 50 MCG/SPRAY BOTTLE NS SCH (09:00)
[2017-03-29] MEDS ORDERED: Isosorbide MONOnitrate (24 HR) 30 MG TAB.ER.24H PO SCH (09:00)
[2017-03-29] MEDS ORDERED: Pantoprazole 40 MG VIAL IVP SCH (09:00)
--- NOTE | 2017-03-29 09:44 | Cardiology Consult Note ---
Date of Encounter: 03/29/17 Time of Encounter: 09:35 Assessment and Plan (1) Atrial fibrillation Current Visit: Yes Status: Acute On admission EKG showed Afib w/ RVR. Rate controlled with Metoprolol 25 BID. Multiple recent hospitalizations for CP and SOB found to be in Afib w/ RVR in October, November, and December. [id number] score 4; HTN, Hx DVT, Vascular disease. Due to patient's occupation, and lack of fluid consumption patient gets into afib due to mild dehydration. scheduled cardioversion 04/26/2017. per chart review, INR has been therapeutic since 02/17/2017. - imdur increased to 120 mg - continue metoprolol for rate control; goal HR<100 - continue Coumadin for anti-coagulation - continue ASA81, statin - educated patient on proper hydration at work - cardiology will sign off at this time, and follow up with patient outpateint Qualifiers: Atrial fibrillation type: unspecified Qualified Code(s): I48.91 - Unspecified atrial fibrillation (2) Chest pain Current Visit: Yes Status: Acute Most likely multifactorial Afib + CAD. Risk factors include Hx of HLD, HTN, DVT , and former smoker. TENA score 2. HEART score 3. On admission EKG in Afib w / RVR, no ischemic changes. Trops neg x3. BNP neg. CXR: stable borderline cardiac enlargement and no reported lung findings. Nuclear Stress 01/18/2017: negative for ischemia, gated EF 51%, and normal was motion. Cath 12/18/2016: moderate atherosclerotic CAD and LVEF 50%. echo 11/02/2016: LVEF 50-55%, normal LV size and function. - Patient is currently no longer in afib and Sx's of Chest pain and Shortness of Breath have resolved. - continue ASA81, metoprolol, Statin, coumadin - Imdur increased to 120 mg qd to prevent angina pectoris Qualifiers: Chest pain type: other chest pain Qualified Code(s): R07.89 - Other chest pain; R07.8 - Other chest pain Discussion w patient/family: The assessment and plan as outlined above was discussed with the patient and/or family members who expressed understanding and agreement. All questions were answered. Thank you for involving us in the care of your patient. Please call with any questions. History of Present Illness Consult date: 03/29/17 Requesting physician: Mila Castellon Consult reason: Afib Chief complaint: Chest pain and SOB History of present illness: Mr. Bowden is a 56 year old male admitted for Chest Pain and Shortness of Breath w/ history of Afib that started in October on coumadin, hospital visits with similar symptoms in October, November, and December. Patient reports compliance with Medications at home, and has not missed an anticoagulation clinic visit. Home meds include Coumadin, metropolol 25 BID, lisinopril 10, isosorbide monotitrate 60, atorvastatin 40, and ASA 81. Scheduled cardioversion on . On admission INR 2.0, and EKG showed Afib w/ RVR. negative trops x3, and negative BNP. Chest pain was sudden onset yesterday morning after returning home from [place]. Onset of symptoms started at rest. Patient describes the pain as left sided and behind his rib cage. Patient only associated symptoms are tiredness and shortness of breath. 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 The patient denies the pain is localized, non-radiating, changes with position, fluttering in his chest, sweating, light headness, lost of consciousness, swelling in his legs, ability to lay flat, waking up in the middle of the night catching his breath, or increased SOB on exertion. Per chart review, patient has history of HLD, DVT, HTN, and afib Past Med Surg Social Fam HX - Past Medical History Medical history: atrial fibrillation, coronary artery disease, hyperlipidemia, hypertension Psychiatric history: no psych history - Past Surgical History Surgical History: orthopedic, other, other - Social History Smoking Status: Former smoker Smokeless Tobacco Status: No Alcohol use: none Drug use: none - Family History Brother Living Status: Still Living Hx Family Cardiac Disorders: Yes ([place], HD) Hx Family Cancer: Yes Father Adopted: No Family Member Ethnicity: Non- Living Status: Hx Family Cardiac Disorders: No Hx Family Respiratory Disorders: No Hx Family Cancer: Yes (Non Hodgkins lymphoma) Hx Family GI Disorders: No Hx Family Endocrine Disorder: No Hx Family Neuromuscular Disorders: No Hx Family Neurologic Disorders: No Hx Family HEENT Disorders: No Hx Family Autoimmune Disorders: No Mother Adopted: No Family Member Ethnicity: Non- Living Status: Hx Family Cardiac Disorders: Yes ([place], HD) Hx Family Respiratory Disorders: No Hx Family Cancer: Yes Hx Family GI Disorders: No Hx Family Endocrine Disorder: Yes (Goiter) Hx Family Neuromuscular Disorders: No Hx Family Neurologic Disorders: No Hx Family HEENT Disorders: Yes (GOiter, glaucoma) Hx Family Autoimmune Disorders: No Sister Living Status: Still Living Hx Family Cardiac Disorders: Yes (HTN) Hx Family Cancer: Yes (Renal) Medications and Allergies Metoprolol [Lopressor] 25 mg PO BID #60 tablet 11/03/16 [Rx] Atorvastatin [Lipitor] 40 mg PO HS 12/17/16 [History] Aspirin Enteric Coated [Aspirin EC] 81 mg PO DAILY #30 12/19/16 [Rx] Lisinopril [Zestril] 10 mg PO DAILY 01/16/17 [History] Warfarin [Coumadin] 5 mg PO WESA 01/16/17 [History] Nitroglycerin 0.3 mg SL Q5MIN PRN #6 tab.subl 01/18/17 [Rx] Warfarin [Coumadin] 7.5 mg PO SUMOTUTHFR 03/28/17 [History] Isosorbide MONOnitrate (24 HR) [Imdur] 120 mg PO DAILY #30 tab.er.24h 03/29/17 [ Rx] 3 Allergy/AdvReac Type Severity Reaction Status Date / Time No Known Allergies Allergy Verified 01/17/17 11:59 All Systems Review: A 10-system review of systems was performed and is negative for pertinent findings except as documented above in the HPI. - Constitutional Constitutional: fatigue, lethargy, malaise, no chills, no night sweats, no weight gain, no weight loss - EENT Eyes: no blurred vision, no loss of vision - Cardiovascular Cardiovascular: as per HPI - Respiratory Respiratory: dyspnea (on admission, but has currently resolved), no cough - Gastrointestinal Gastrointestinal: no abdominal pain, no diarrhea, no hematemesis, no hematochezia, no melena, no nausea - Genitourinary Genitourinary: no dysuria, no hematuria, no nocturia - Neurological Neurological: no abnormal speech, no dizziness, no loss of vision, no memory loss, no syncope, no tingling - Psychiatric Psychiatric: no anxiety, no depression, no panic attacks Physical Examination Vital Signs, Last 4 Hours Temp Pulse Resp BP Pulse Ox 03/29/17 07:30 99.4 F 55 18 129/78 93 General: Conversant, No Apparent Distress HEENT: Atraumatic, Normocephaly, Mucus Membranes Moist Neck: No JVD, Normal carotid pulses Cardiac: Reg Rate and Rhythm, Normal S1 and S2, No Murmur Lungs: Normal Breath Sounds, No Wheeze, Rales, Rhonchi Neuro: Alert and responsive, No focal deficits noted Abdomen: Soft, Non-Tender Skin: No rashes noted on visualized skin Musculoskeletal: No Chest Wall Tenderness Extremities: No Clubbing, No Cyanosis, No Edema (no edema in LE or UE), Normal Pulses (radial, posterior tibial and dorsalis pedis pulses bilaterally equal) Results 03/29/17 04:44 03/29/17 04:44 Lab Results 03/28/17 03/28/17 03/28/17 17:40 17:40 17:40 WBC Hgb Hct Plt Count Sodium Potassium Chloride Carbon Dioxide BUN Creatinine Glucose Calcium Magnesium Troponin I 0.00 0.00 B-Natriuretic Peptide 98 03/29/17 03/29/17 04:44 04:44 WBC 10.9 Hgb 15.4 Hct 45.6 Plt Count 183 Sodium 139 Potassium 4.0 Chloride 106 Carbon Dioxide 24 BUN 16 Creatinine 1.05 Glucose 99 Calcium 8.6 Magnesium 2.1 Troponin I B-Natriuretic Peptide Consult Discharge Plan - Plan Referrals: NONE,PCP [Primary Care Provider] - Prescriptions: Isosorbide MONOnitrate (24 HR) [Imdur] 120 mg PO DAILY #30 tab.er.24h
[2017-03-29 10:16] LABS: Adenovirus Not Detected (Not Detect); Bordetella Pertussis Not Detected (Not Detect); Chlamydophila pneumoniae Not Detected (Not Detect); Coronavirus 229E Not Detected (Not Detect); Coronavirus HKU1 Not Detected (Not Detect); Coronavirus NL63 Not Detected (Not Detect); Coronavirus OC43 Not Detected (Not Detect); Human Metapneumovirus Not Detected (Not Detect); Human Rhinovirus/Enterovirus Not Detected (Not Detect); Influenza A Subtype 2009 H1 Not Detected (Not Detect); Influenza A Untypeable Not Detected (Not Detect); Influenza B Not Detected (Not Detect); Mycoplasma pneumoniae Not Detected (Not Detect); Parainfluenza Virus 1 Not Detected (Not Detect); Parainfluenza Virus 2 Not Detected (Not Detect); Parainfluenza Virus 3 Not Detected (Not Detect); Parainfluenza Virus 4 Not Detected (Not Detect); Respiratory Syncytial Virus Not Detected (Not Detect)
[2017-03-29 12:35] VITALS: BP 111/72
--- NOTE | 2017-03-29 13:36 | Discharge Summary ---
Date of Encounter: 03/29/17 Time of Encounter: 10:50 - Discharge Diagnosis (1) Chest pain Priority: Primary Status: Acute Comments: Patient reports sudden onset chest pain at [employer]. Last approximately 15-20 minutes, sharp, no radiation, no nausea or vomiting. Patient reports feeling lightheaded with position change, no dyspnea on exertion, no chest pain on exertion. There are no aggravating or relieving factors. Pain was resolved in the emergency department received aspirin. Patient had negative stress test in December,. Patient had LHC in November, with moderate atherosclerotic coronary artery disease. He did not receive any interventions. An EF of 50%, optimal medical therapy of patient's disease was the outcome. She had an echocardiogram in October, with an LVEF of 50-55%, mild concentric LV hypertrophy, indeterminate diastolic function, mild MR. He currently takes Imdur 30 mg by mouth daily, there is room to move for chest pain with the Imdur. Troponins negative, cxr negative, EKG a-fib Pt is scheduled for cardioversion on 04/26/17. Continue ASA, statin, BB, increase Imdur to 120mg po daily Continue Coumadin, INR therapeutic on admission. Pt is pain free today and states that he feels much better. Encouraged hydration and rest, pt off of work until Wednesday. Qualifiers: Chest pain type: other chest pain Qualified Code(s): R07.89 - Other chest pain; R07.8 - Other chest pain (2) URI (upper respiratory infection) Priority: Secondary Status: Acute Comments: Patient reports 1 day history of clear rhinorrhea, nasal congestion, nonproductive cough. Patient has mild leukocytosis, most likely active from chest pain. Chest x-ray negative for infiltrates or effusions. Leukocytosis resolved. Flu/viral swabs negative. Continue Flonase, claritin, add Tessalon pearls. No work for 2 days. Qualifiers: URI type: unspecified viral URI Qualified Code(s): J06.9 - Acute upper respiratory infection, unspecified; B97.89 - Other viral agents as the cause of diseases classified elsewhere; B97.89 - Other viral agents as the cause of diseases classified elsewhere (3) Essential hypertension Priority: Primary Status: Chronic Comments: Blood pressure well controlled, continue home medications. (4) Atrial fibrillation Priority: Secondary Status: Acute Comments: Pt in afib, scheduled for cardioversion on 04/26/17. Continue home medications. Follow with cardiology. Qualifiers: Atrial fibrillation type: unspecified Qualified Code(s): I48.91 - Unspecified atrial fibrillation (5) HLD (hyperlipidemia) Priority: Secondary Status: Chronic Comments: Chronic. Continue home medications. Qualifiers: Hyperlipidemia type: pure hypercholesterolemia Qualified Code(s): E78.00 - Pure hypercholesterolemia, unspecified; E78.0 - Pure hypercholesterolemia (6) CAD (coronary artery disease) Priority: Secondary Status: Chronic Comments: Plan as above. Continue aspirin, statin, beta shila, Imdur. Qualifiers: Coronary Disease-Associated Artery/Lesion type: [place] artery [place] vs. transplanted heart: [place] heart Associated angina: angina presence unspecified Qualified Code(s): I25.10 - Atherosclerotic heart disease of [place] coronary artery without angina pectoris (7) DVT prophylaxis Priority: Secondary Status: Acute Comments: Patient got heparin subcutaneous daily. - Discharge Medications Prescriptions: Benzonatate [Tessalon] 100 mg PO BID #20 capsule Fluticasone Propionate Nasal [Flonase] 50 mcg NS DAILY #1 bottle Isosorbide MONOnitrate (24 HR) [Imdur] 120 mg PO DAILY #30 tab.er.24h Loratadine [Claritin] 10 mg PO DAILY #30 tablet Home Medications: Metoprolol [Lopressor] 25 mg PO BID #60 tablet 11/03/16 [Rx] Atorvastatin [Lipitor] 40 mg PO HS 12/17/16 [History] Aspirin Enteric Coated [Aspirin EC] 81 mg PO DAILY #30 12/19/16 [Rx] Lisinopril [Zestril] 10 mg PO DAILY 01/16/17 [History] Warfarin [Coumadin] 5 mg PO WESA 01/16/17 [History] Nitroglycerin 0.3 mg SL Q5MIN PRN #6 tab.subl 01/18/17 [Rx] Warfarin [Coumadin] 7.5 mg PO SUMOTUTHFR 03/28/17 [History] Benzonatate [Tessalon] 100 mg PO BID #20 capsule 03/29/17 [Rx] Fluticasone Propionate Nasal [Flonase] 50 mcg NS DAILY #1 bottle 03/29/17 [Rx] Isosorbide MONOnitrate (24 HR) [Imdur] 120 mg PO DAILY #30 tab.er.24h 03/29/17 [ Rx] Loratadine [Claritin] 10 mg PO DAILY #30 tablet 03/29/17 [Rx] Allergies/Adverse Reactions: 3 Allergy/AdvReac Type Severity Reaction Status Date / Time No Known Allergies Allergy Verified 01/17/17 11:59 Procedures/tests Complete & Pending: Procedures Performed prior 72 hours Category Date Time Status ECG 12 lead ECG [ECG] AM 0600 Y 03/29/17 06:00 Ordered Date of admission: 03/28/17 16:06 Primary care physician: PCP NONE Consults: 03/28/17 17:26 Consult to Cardiology [CONS] Routine Comment: Consulting Provider: Cardiology Araceli Reason for Consult: chest pain Call Completed: No Discharging clinician: Mila Castellon Anticipated date of discharge: 03/29/17 - Patient Status Disposition: Home, Self-Care Condition: Good Functional capacity at discharge: independent ambulation Overall status at discharge: patient is progressing back to baseline - Discharge Instructions Follow Up With: NONE,PCP [Primary Care Provider] - Additional Instructions: Follow up with your PCP in the next 7-10 days for a recheck Return to the ER as needed for any other problems or concerns or if your symptoms return or worsen. REturn to work on Wed [facility] Return to your normal activities as tolerated Continue your home medications, increase IMdur. - Diet and Activity Activity: increase activity as tolerated Diet: advance to your usual diet Hospital course: Please see assessment and plan for hospital course. - Time Spent with Patient Total time spent providing and/or coordinating discharge services: Less than 30 minutes - Constitutional Vitals: Temp Pulse Resp BP Pulse Ox 99.5 F 78 16 111/72 93 03/29/17 12:35 03/29/17 12:35 03/29/17 12:35 03/29/17 12:35 03/29/17 12:35 General appearance: Present: cooperative, A&O X 3, pleasant, no acute distress, answers questions appropriately - Head Head exam: Present: atraumatic, normal inspection, normocephalic - Eye Eye exam: Present: normal appearance, conjuntiva pink, sclera anicteric - Neck Neck exam general surgery: Present: supple, trachea midline. Absent: lymphadenopathy, tenderness - Respiratory Respiratory exam: Present: CTAB, respiratory distress. Absent: accessory muscle use, chest wall tenderness, rales, rhonchi, wheezes - Cardiovascular Cardiovascular exam: Present: irregular rhythm. Absent: diastolic murmur, gallop, rubs, systolic murmur - GI/Abdominal GI/Abdominal exam: Present: normal bowel sounds, soft, no peritoneal signs. Absent: distended, hepatomegaly, tenderness - Extremities Exam Extremities exam: Present: normal inspection, warm, radial pulses palpable and symmetrical. Absent: calf tenderness, cyanotic, normal capillary refill, pedal edema, tenderness - Neurological Exam Neurological exam: Present: alert, oriented X3, no focal deficits. Absent: facial droop, speech deficit - Skin Skin exam: Present: dry, intact, normal color, warm. Absent: rash
--- NOTE | 2017-03-29 17:21 | Electrocardiograph Report ---
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
[2017-03-29] MEDS ORDERED: *HR* Heparin 5,000 UNIT/ML VIAL SQ SCH (17:23)
[2017-03-29] MEDS ORDERED: *HR* Warfarin 7.5 MG TABLET PO ONE ×2 (18:00)
== END 2017-03-29 15:01 | disposition home or self-care (01) ==
LOC: 3BNU 12:57 → EMEROO 12:57 → 3BNU 16:54
PROVIDERS: ADMIT Nurse Practitioner Family; ATTEND Registered Nurse

== ENCOUNTER 2019-05-28 19:09 | Observation (INO) ==
[2019-05-28] MEDS ORDERED: Nitroglycerin 0.4 MG TAB.SUBL SL PRN (19:39)
[2019-05-28 19:56] LABS: Basophils # 0.1 K/mcL (0.0-0.2); Basophils % 1.1 %; Eosinophils # 0.3 K/mcL (0.0-0.6); Eosinophils % 3.9 %; Hemoglobin 15.7 g/dL (12.9-16.9); Immature Granulocytes % 0.5 % (0-4); Lymphocytes # 2.6 K/mcL (0.6-4.6); Lymphocytes % 34.6 %; Mean Corpuscular HGB Conc 34.9 g/dL (31.6-35.5); Mean Corpuscular Hemoglobin 30.7 pg (28.0-33.3); Mean Corpuscular Volume 88.1 fL (83.0-100.0); Mean Platelet Volume 9.5 fL (9.4-12.4); Monocytes # 0.7 K/mcL (0.0-1.3); Monocytes % 9.1 %; Neutrophils # 3.9 K/mcL (1.6-8.9); Platelet Count 202 K/mcL (140-400); Red Blood Count 5.11 M/mcL (4.19-5.50); Segmented Neutrophils % 50.8 %; White Blood Count 7.6 K/mcL (4.3-11.1)
[2019-05-28 20:04] LABS: INR 2.1; Prothrombin Time 23.7 Seconds (9.4-12.1)
[2019-05-28 20:24] LABS: BUN/Creatinine Ratio 15 (6-26); Blood Urea Nitrogen 18 mg/dL (6-20); Carbon Dioxide 25 mEq/L (23-29); Chloride 107 mEq/L (98-107); Glucose 117 mg/dL (70-105); Osmolality,Calculated 291 (280-300); Potassium 3.7 mEq/L (3.5-5.1); Sodium 139 mEq/L (136-145); Troponin I < 0.03 ng/mL (< 0.04); eGFR For African Americans > 60 (> 60); eGFR For Non-African Americans > 60 (> 60)
[2019-05-29 03:53] LABS: Hematocrit 45.3 % (37.5-50.1); Hemoglobin 15.5 g/dL (12.9-16.9); Mean Corpuscular HGB Conc 34.2 g/dL (31.6-35.5); Mean Corpuscular Hemoglobin 30.7 pg (28.0-33.3); Mean Corpuscular Volume 89.7 fL (83.0-100.0); Mean Platelet Volume 9.5 fL (9.4-12.4); Platelet Count 191 K/mcL (140-400); Red Blood Count 5.05 M/mcL (4.19-5.50); Red Cell Distribution Width 13.2 % (11.5-14.5); White Blood Count 7.6 K/mcL (4.3-11.1)
[2019-05-29 03:58] LABS: INR 1.8; Prothrombin Time 20.2 Seconds (9.4-12.1)
[2019-05-29 04:12] LABS: BUN/Creatinine Ratio 17 (6-26); Blood Urea Nitrogen 17 mg/dL (6-20); Calcium 8.5 mg/dL (8.6-10.3); Carbon Dioxide 24 mEq/L (23-29); Chloride 108 mEq/L (98-107); Glucose 106 mg/dL (70-105); Osmolality,Calculated 288 (280-300); Potassium 3.7 mEq/L (3.5-5.1); Sodium 138 mEq/L (136-145); eGFR For African Americans > 60 (> 60); eGFR For Non-African Americans > 60 (> 60)
[2019-05-29] MEDS ORDERED: Naloxone 0.4 MG/ML INJ IVP PRN (06:25)
[2019-05-29] MEDS: *HR* Enoxaparin 120 MG/0.8 ML SYRINGE SQ SCH ×2 (11:02→16:57)
[2019-05-29] MEDS ORDERED: Perflutren Lipid Microsphere 1.3 ML in 0.9 % Sodium Chloride 8.7 ML IVP ONE (13:13)
[2019-05-29] MEDS ORDERED: Warfarin perPT PO PRN (18:00)
[2019-05-29] MEDS ORDERED: *HR* Warfarin 7.5 MG TABLET PO ONE (18:00)
[2019-05-30] MEDS: *HR* Enoxaparin 120 MG/0.8 ML SYRINGE SQ SCH (05:47)
[2019-05-30] MEDS ORDERED: Aspirin Enteric Coated 81 MG Tablet PO SCH (09:00)
[2019-05-30] MEDS ORDERED: Isosorbide MONOnitrate (24 HR) 60 MG TAB.ER.24H PO SCH (09:00)
[2019-05-30 10:58] VITALS: BP 134/95
[2019-05-30 11:06] LABS: INR 1.5; Prothrombin Time 16.5 Seconds (9.4-12.1)
[2019-05-30] MEDS ORDERED: *HR* Warfarin 4 MG TABLET PO ONE (18:00)
== END 2019-05-30 14:18 | disposition home or self-care (01) ==
LOC: CDU 19:09 → EMEROOARM 19:09 → SUATTDRO 23:09 → CDU 23:16
PROVIDERS: ADMIT Family Medicine; ATTEND Internal Medicine

== ENCOUNTER 2021-01-14 08:37 | Observation (INO) ==
[2021-01-14] MEDS ORDERED: Aspirin 81 MG TAB.CHEW PO ONE (08:42)
[2021-01-14 09:23] LABS: BUN/Creatinine Ratio 17 (6-26); Blood Urea Nitrogen 19 mg/dL (6-20); Calcium 9.1 mg/dL (8.6-10.3); Carbon Dioxide 26 mEq/L (23-29); Chloride 106 mEq/L (98-107); Glucose 83 mg/dL (70-105); Osmolality,Calculated 289 (280-300); Potassium 3.9 mEq/L (3.5-5.1); Sodium 139 mEq/L (136-145); Troponin I < 0.03 ng/mL (< 0.04); eGFR For African Americans > 60 (> 60); eGFR For Non-African Americans > 60 (> 60)
[2021-01-14 09:24] LABS: Basophils # 0.1 K/mcL (0.0-0.2); Basophils % 1.2 %; Eosinophils # 0.3 K/mcL (0.0-0.6); Eosinophils % 4.2 %; Hematocrit 46.9 % (37.5-50.1); Hemoglobin 15.6 g/dL (12.9-16.9); Immature Granulocytes % 0.3 % (0-4); Lymphocytes # 2.8 K/mcL (0.6-4.6); Lymphocytes % 36.8 %; Mean Corpuscular HGB Conc 33.3 g/dL (31.6-35.5); Mean Corpuscular Volume 90.2 fL (83.0-100.0); Mean Platelet Volume 9.6 fL (9.4-12.4); Monocytes # 0.6 K/mcL (0.0-1.3); Monocytes % 8.1 %; Neutrophils # 3.8 K/mcL (1.6-8.9); Platelet Count 203 K/mcL (140-400); Red Cell Distribution Width 13.1 % (11.5-14.5); Segmented Neutrophils % 49.4 %; White Blood Count 7.7 K/mcL (4.3-11.1)
[2021-01-14] MEDS: Nitroglycerin 0.4 MG TAB.SUBL SL SCH ×2 (09:28→09:39)
[2021-01-14 09:38] LABS: INR 3.2; Prothrombin Time 35.9 Seconds (9.4-12.1)
[2021-01-14] MEDS ORDERED: Naloxone 0.4 MG/ML INJ IVP PRN (11:40)
[2021-01-14] MEDS ORDERED: Perflutren Lipid Microsphere 1.3 ML in 0.9 % Sodium Chloride 8.7 ML IVP PRN (11:41)
[2021-01-14] MEDS ORDERED: Furosemide 20 MG TABLET PO PRN (12:08)
[2021-01-14] MEDS ORDERED: Nitroglycerin 0.4 MG TAB.SUBL SL PRN (12:08)
[2021-01-14] MEDS ORDERED: *HR* Warfarin 3 MG TABLET PO ONE (18:00)
[2021-01-14] MEDS ORDERED: Warfarin perPT PO PRN (18:00)
[2021-01-15 02:53] LABS: Hematocrit 45.6 % (37.5-50.1); Hemoglobin 15.3 g/dL (12.9-16.9); Mean Corpuscular HGB Conc 33.6 g/dL (31.6-35.5); Mean Corpuscular Hemoglobin 30.1 pg (28.0-33.3); Mean Corpuscular Volume 89.8 fL (83.0-100.0); Mean Platelet Volume 9.4 fL (9.4-12.4); Platelet Count 177 K/mcL (140-400); Red Blood Count 5.08 M/mcL (4.19-5.50); White Blood Count 7.3 K/mcL (4.3-11.1)
[2021-01-15 03:11] LABS: BUN/Creatinine Ratio 17 (6-26); Blood Urea Nitrogen 17 mg/dL (6-20); Calcium 8.9 mg/dL (8.6-10.3); Carbon Dioxide 23 mEq/L (23-29); Chloride 106 mEq/L (98-107); Glucose 95 mg/dL (70-105); Osmolality,Calculated 283 (280-300); Potassium 3.8 mEq/L (3.5-5.1); Sodium 136 mEq/L (136-145); eGFR For African Americans > 60 (> 60); eGFR For Non-African Americans > 60 (> 60)
[2021-01-15 03:14] LABS: Chol/HDL Ratio 5.2 (0-4.9)
[2021-01-15 03:15] LABS: INR 3.1
[2021-01-15] MEDS ORDERED: Regadenoson 0.4 MG/5 ML SYRINGE IVP ONE (06:15)
[2021-01-15 08:58] LABS: Thyroid Stimulating Hormone 4.961 mcIU/mL (0.340-5.600)
[2021-01-15] MEDS ORDERED: Aspirin 81 MG TAB.CHEW PO SCH (09:00)
[2021-01-15] MEDS ORDERED: lisinopriL 10 MG TABLET PO SCH (09:00)
[2021-01-15] MEDS ORDERED: Isosorbide MONOnitrate (24 HR) 60 MG TAB.ER.24H PO SCH (09:00)
[2021-01-15 10:05] LABS: Estimated Average Glucose 128 mg/dl; Hemoglobin A1C 6.1 %
[2021-01-15] MEDS ORDERED: Acetaminophen 325 MG RECTAL SUPP RC PRN (10:14)
[2021-01-15] MEDS ORDERED: Acetaminophen 325 MG TABLET PO ONE (10:22)
[2021-01-15] MEDS ORDERED: Acetaminophen 325 MG TABLET PO PRN (10:45)
[2021-01-15 15:30] VITALS: BP 99/64; PULSE 63; TEMP 98.3; O2SAT 92
[2021-01-15] MEDS ORDERED: *HR* Warfarin 3 MG TABLET PO ONE (18:00)
== END 2021-01-15 16:10 | disposition home or self-care (01) ==
LOC: EMEROOARM 08:37 → 2ANU 08:37 → SUATTDRO 10:42 → 2ANU 12:02
PROVIDERS: ADMIT Internal Medicine; ATTEND Internal Medicine